=== PATIENT | male | born 1975 | race Caucasian/White ===

== ENCOUNTER 2022-02-02 23:51 | Emergency (ER) | payer OTHER, SELFPAY ==
[2022-02-03 00:04] VITALS: BP 123/82; PULSE 74; RESP 18; TEMP 36.6; O2SAT 99; BMI 32.9
--- OUTSIDE RECORDS SUMMARY | 2022-02-03 00:35 | XMS_ITS | Encounter Summary ---
:1975 Author Organization [facility] Address [address] [place] [address] Care Team Providers Name Role Phone Unavailable Primary Care Provider Unavailable Reason for Visit Reason Onset Date Comments Outpatient COVID-19 Testing 03/19/2020 Encounter Details Date Type Department Care Team Description 03/19/2020 External Outreach Department of Mateus Garrido Infect ion Upper Internal Medicine in J, D.O. Respiratory (Primary [place], [place] [address] Dx) [address] [place] [phone] Social History Tobacco Use Types Packs/Day Years Used Date Smoking Tobacco: Former Cigarettes Sex Assigned at Date Recorded Not on file documented as of this encounter Progress Notes Kathryn Briceño RFrancisco. - 03/19/2020 4:32 PM CST Encounter created for the drive-through COVID-19 testing. GATION DISTRICT MANAGER documented in this encounter Plan of Treatment Not on filedocumented as of this encounter Procedures Procedure Name Priority Date/Time Associated Diagnosis Comme nts SARS CORONAVIRUS-2 Routine 03/20/2020 9:51 AM Res ults for this RNA, V IRRIGATION DISTRICT MANAGER procedure are i n the results section. documented in this encounter Results SARS Coronavirus-2 RNA, V (03/20/2020 9:51 AM IRRIGATION DISTRICT MANAGER) [facility] Method Time Signature SARS-CoV-2 Nasopharynx 03/20/2020 MKTO Specimen 9:16 PM IRRIGATION DISTRICT MANAGER Source SARS CoV-2 Undetected Undetected 03/20/2020 MKTO RNA, TMA 9:16 PM IRRIGATION DISTRICT MANAGER Comment: SARS-CoV-2 RNA absent. This result does not rule out COVID-19 in the patient, as the sensitivity of the test depends o n the timing of the specimen collection and the quality of the specim en. Result should be correlated with patient's history and clinical presentat ion. ----ADDITIONAL INFORMATION---- This test is performed using the Aptima SARS-CoV-2 assay ([employer] which has received Emergency Use Authori zation (EUA) by the U.S. Food and Drug Administration. Fact sheets for this Emergency Use Autho rization (EUA) assay can be found at the following links: For Healthcare Providers: https://www.[employer] a.gov/media/355317/download For Patients: https://www.fda.gov/media/ 573909/download Specimen Anatomical Collection Method Collection Time Receive d Time (Source) Location / / Volume Laterality Varies 03/20/2020 9:51 AM 0 4:23 IRRIGATION DISTRICT MANAGER PM IRRIGATION DISTRICT MANAGER Mateus Garrido D.O. LAB MICROBIOLOGY - GENERAL O RDERABLES Performing Organization Address City/State/ZIP Code Phon e Number [facility]- [address] [place] [address] [place] [address] [address] documented in this encounter Visit Diagnoses Diagnosis Infection Upper Respiratory - Primary documented in this encounter Additional Health Concerns Infection Onset Date Last Indicated Resolved Time COVID19 Pending 03/19/2020 03/20/2020 03/20/2020 11:41 AM IRRIGATION DISTRICT MANAGER documented as of this encounter
--- OUTSIDE RECORDS SUMMARY | 2022-02-03 00:35 | XMS_ITS | Encounter Summary ---
:1975 Author Organization [facility] Address [address] [place] [address] Care Team Providers Name Role Phone Unavailable Primary Care Provider Unavailable Encounter Details Date Type Department Care Team Description 03/20/2020 Admin Visit Department of Family Medicine, [address] [address] [facility] [phone] Social History Tobacco Use Types Packs/Day Years Used Date Smoking Tobacco: Former Cigarettes Sex Assigned at Date Recorded Not on file documented as of this encounter Plan of Treatment Not on filedocumented as of this encounter Visit Diagnoses Not on filedocumented in this encounter Additional Health Concerns Infection Onset Date Last Indicated Resolved Time COVID19 Pending 03/19/2020 03/20/2020 03/20/2020 11:41 AM LIBRARY ASSISTANT documented as of this encounter
--- OUTSIDE RECORDS SUMMARY | 2022-02-03 00:35 | XMS_ITS | Encounter Summary ---
:1975 Author Organization [facility] Address [address] [place] [address] Care Team Providers Name Role Phone Unavailable Primary Care Provider Unavailable Encounter Details Date Type Department Care Team Description 02/01/2017 Hospital Encounter HX RST ED Scott Sweeney OBSERVATION M.D., Ph.D. [address] [place] [phone] Social History Tobacco Use Types Packs/Day Years Used Date Smoking Tobacco: Unknown Sex Assigned at Date Recorded Not on file documented as of this encounter Medications at Time of Discharge Medication Sig Dispensed Refills Start Date End Date propranoloL (INDERAL) 40 mg Take 40 mg by mouth 0 07/07/2015 tablet 2 (two) times a day. documented as of this encounter Plan of Treatment Not on filedocumented as of this encounter Visit Diagnoses Not on filedocumented in this encounter
--- OUTSIDE RECORDS SUMMARY | 2022-02-03 00:35 | XMS_ITS | Encounter Summary ---
:1975 Author Organization [facility] Address [address] [place] [address] Care Team Providers Name Role Phone Unavailable Primary Care Provider Unavailable Reason for Visit Reason Onset Date Comments Outpatient COVID-19 Testing 03/31/2020 Encounter Details Date Type Department Care Team Description 03/31/2020 External Outreach Department of Mateus Garrido Infect ion Upper Internal Medicine in J, D.O. Respiratory (Primary [place], [place] [address] Dx) [address] [place] [phone] Social History Tobacco Use Types Packs/Day Years Used Date Smoking Tobacco: Former Cigarettes Sex Assigned at Date Recorded Not on file documented as of this encounter Progress Notes Catherine Garcia R.N. - 03/31/2020 8:02 AM CST Encounter created for the drive-through COVID-19 testing. NICAL STAFF ENGINEER documented in this encounter Miscellaneous Notes Addendum Note - Catherine Garcia R.N. - 03/31/2020 8:02 AM TECHNICAL STAFF ENGINEER Addended by: CATHERINE GARCIA on: 04/01/2020 05:02 PM Modules accepted: Orders NICAL STAFF ENGINEER documented in this encounter Plan of Treatment Not on filedocumented as of this encounter Visit Diagnoses Diagnosis Infection Upper Respiratory - Primary documented in this encounter Additional Health Concerns Infection Onset Date Last Indicated Resolved Time COVID19 03/27/2020 03/27/2020 04/16/2020 4:47 AM TECHNICAL STAFF ENGINEER documented as of this encounter
--- OUTSIDE RECORDS SUMMARY | 2022-02-03 00:35 | XMS_ITS | Encounter Summary ---
:1975 Author Organization [facility] Address [address] [place] [address] Care Team Providers Name Role Phone Unavailable Primary Care Provider Unavailable Reason for Visit Reason Comments COV[place]OL Nurse Line Encounter Details Date Type Department Care Team Description 03/19/2020 Clinical Communication Division of Devora Calderon Nurse [facility] Internal R, R.N. [facility] [address] [facility] in [place], [place] [phone] [place] [address] [place], [place] (Work) [phone] Social History Tobacco Use Types Packs/Day Years Used Date Smoking Tobacco: Former Cigarettes Sex Assigned at Date Recorded Not on file documented as of this encounter Miscellaneous Notes Telephone Encounter - Devora Calderon, R.N. - 03/19/2020 4:22 PM CST COVID-19 Nurse Line Screening ASSESSMENT COVID 19 Screening Have you had close contact with a person who has a LABORATORY CONFIRMED case of COVID-19 in the past14 days?: Yes - Continue screening. Over the last 48 hours have you had any of the following symptoms that are not related to an existing condition?: No (End screening). Testing is not recommended at this time. Have you tested positive for COVID-19 in the last 45 days? : No (Continue Screening) Do any of the following quarantine criteria apply?: Close contact with COVID positive person within their infectious period or within 48 hours prior to symptoms onset, Close contact with COVID positiveperson within their infectious period or 48 hours prior to testing if they had not symptoms PLAN Endpoint recommendation: Screening negative, testing indicated per request for Work, sent to [facility] located at [address] The entrance is on the north side of the building. You must call [phone] for an appointment time.Testing hours are Daily 9 am to 7 pm.When you arrive at the testing site: Remain in your vehicle and check-in by phone using the same appointment line number. and Please avoid using public transportation per CDC recommendation. If you do not have personal transportation please self-quarantine until a personal transportation option is available. Care Points provided: STANDARD PRECAUTIONS FOR ALL PATIENTS: Wash hands often with soap and water for at least 20 seconds, especially after blowing your nose, coughing, sneezing, or having been in a public place. If soap and water aren't available, use a hand linen controller that contains at least 60% alcohol. Avoid close contact with anyone who may be exhibiting respiratory symptoms such as coughing and sneezing. Avoid touching your eyes, nose and mouth. Clean and disinfect frequently touched surfaces daily. Cover your mouth and nose with a cloth face cover when around others or in public. The cloth face cover is not a substitute for social distancing. Continue to keep about 6 feet between yourself andothers. Monitor for symptoms. Do not take your temperature within 30 minutes of exercise. If your test or screen is negative and new symptoms develop please contact your provider if it has been greaterthan 72 hours since you were tested. Educational Resource: https://www.cdc.gov/coronavirus/2019-ncov/ htaenoi-ahsnsqj-vvto/index.html RECOMMENDATIONS TESTING CRITERIA IS MET: Stay home except to get medical care. Quarantine for 14 days from your last known exposure to someone with a laboratory confirmed case of COVID-19 regardlessof your test results. Avoid public areas and public transportation. Separate yourself from other people and stay in a specific sick room if possible. Wear a cloth face covering, over your nose and mouth if you must be around other people even at home). Cover your nose and mouth when coughing or sneezing. Contact employer/occupational health department to notify them that they are being tested. Seekemergent care if any of the following occur: 1) Trouble breathing, 2) Bluish lips or face, 3) Persist ent pain or pressure in the chest, 4) Newly confused or unable to stay alert and awake. Notify appropriate care provider if any new or worsening symptoms. You may need re-testing if it has been greaterthan 72 hours after a negative COVID- 19 test result. Education Resources: https://www.cdc.gov/coronav irus/2019-ncov/fg-tff-dcx-sick/pziox-waep-oxiv.html SELF CARE FOR ALL PATIENTS: Take breaks from watching, reading, or listening to news stories. Make time to unwind. Try to do some other activities you enjoy. Connect with others. Be creative in keepingconnected with loved ones, especially those at high risk. Try healthy coping strategies such as meditation, relaxation, exercise, healthy eating habits, and avoid alcohol and drugs. Education: Patient/caregiver able to teach back Patient agreeable to plan of care: Yes The following references were used: [facility] novel coronavirus (COVID- 19) resources LE NEEDLE STITCHER documented in this encounter Plan of Treatment Not on filedocumented as of this encounter Visit Diagnoses Not on filedocumented in this encounter
--- OUTSIDE RECORDS SUMMARY | 2022-02-03 00:35 | XMS_ITS | Encounter Summary ---
:1975 Author Organization [facility] Address [address] [place] [address] Care Team Providers Name Role Phone Unavailable Primary Care Provider Unavailable Encounter Details Date Type Department Care Team Description 02/12/2017 Hospital Encounter HX NO MAPPING Social History Tobacco Use Types Packs/Day Years [...]
--- OUTSIDE RECORDS SUMMARY | 2022-02-03 00:35 | XMS_ITS | Encounter Summary ---
:1975 Author Organization [facility] Address [address] [place] [address] Care Team Providers Name Role Phone Unavailable Primary Care Provider Unavailable Encounter Details Date Type Department Care Team Description 03/27/2020 Admin Visit Department of Family Medicine, [address] [address] [facility] [phone] Social History Tobacco Use Types Packs/Day Years Used Date Smoking Tobacco: Former Cigarettes Sex Assigned at Date Recorded Not on file documented as of this encounter Plan of Treatment Not on filedocumented as of this encounter Visit Diagnoses Not on filedocumented in this encounter Additional Health Concerns Infection Onset Date Last Indicated Resolved Time COVID19 Pending 03/26/2020 03/27/2020 03/27/2020 1:30 PM FORK ASSEMBLER documented as of this encounter
--- OUTSIDE RECORDS SUMMARY | 2022-02-03 00:35 | XMS_ITS | Encounter Summary ---
:1975 Author Organization [facility] Address [address] [place] [address] Care Team Providers Name Role Phone Unavailable Primary Care Provider Unavailable Encounter Details Date Type Department Care Team Description 02/24/2017 Orders Only Department of Family Anna Rausch, Medicine in [facility] [address] [place], [place] [id number] [place] [address] ( Work) [address] [phone] Social History Tobacco Use Types Packs/Day Years Used Date Smoking Tobacco: Unknown Sex Assigned at Date Recorded Not on file documented as of this encounter Plan of Treatment Not on filedocumented as of this encounter Visit Diagnoses Not on filedocumented in this encounter
--- OUTSIDE RECORDS SUMMARY | 2022-02-03 00:35 | XMS_ITS | Encounter Summary ---
:1975 Author Organization [facility] Address [address] [place] [address] Care Team Providers Name Role Phone Unavailable Primary Care Provider Unavailable Reason for Visit Reason Onset Date Comments Outpatient COVID-19 Testing 03/23/2020 Encounter Details Date Type Department Care Team Description 03/23/2020 External Outreach Department of Mateus Garrido For Internal Medicine in J, D.O. Screening For Other [place], [place] [address] [facility] [address] [place], [place] (COVID-19) ([place] [address] Dx) [phone] Social History Tobacco Use Types Packs/Day Years Used Date Smoking Tobacco: Former Cigarettes Sex Assigned at Date Recorded Not on file documented as of this encounter Progress Notes Nito Gonzalez R.N. - 03/23/2020 9:22 AM CST Encounter created for the drive-through COVID-19 testing. NICIAN PREVENTATIVE MEDICINE documented in this encounter Miscellaneous Notes Addendum Note - Soun Michele R.N. - 03/23/2020 9:22 AM TECHNICIAN PREVENTATIVE MEDICINE Addended by: SONU MICHELE on: 03/23/2020 05:27 PM Modules accepted: Orders NICIAN PREVENTATIVE MEDICINE documented in this encounter Plan of Treatment Not on filedocumented as of this encounter Visit Diagnoses Diagnosis Encounter For Screening For Other Viral Diseases (COVID-19) - Primary documented in this encounter Additional Health Concerns Infection Onset Date Last Indicated Resolved Time COVID19 Pending 03/23/2020 03/23/2020 03/23/2020 5:27 PM TECHNICIAN PREVENTATIVE MEDICINE documented as of this encounter
--- OUTSIDE RECORDS SUMMARY | 2022-02-03 00:35 | XMS_ITS | Clinical Summary ---
:1975 Author Organization [employer] [facility] [employer] [facility] [place] [address] Care Team Providers Name Role Phone Lo Parker Primary Care Provider [phone] Allergies Active Allergy Reactions Severity Noted Date Comments Codeine Rash 10/10/2011 Other reaction( s): Other (see comments) CODEINE SULFATE Sumatriptan Other - Describe In 09/10/2013 Vessels in head Comment Field pop Latex Other - Describe In 12/24/2015 Rash and blisters Comment Field Morphine Itching 09/10/2013 Unlisted Allergen Anaphylaxis High 12/24/2015 White vine gar (This (Include Detail In includes tisha, Comments) man ect.) Oxycodone Other - Describe In 12/24/2015 Rash and blisters Comment Field Medications Medication Sig Dispensed Refills Start Date End Date Status cyclobenzaprine Take 1 tablet by 60 tablet. 1 05/03/2021 Active (FLEXERIL) 10 mg mouth once daily tabletIndications: if needed. Migraine syndrome fluocinonide 0.05% Apply topically 60 g 0 05/03/2021 Active topical (LIDEX) 0.05 % to affected creamIndications: Dry area(s) 2 times skin daily. nabumetone (RELAFEN) TAKE ONE TABLET 60 Tablet 0 07/09/2021 Active 500 mg BY MOUTH TWICE tabletIndications: Left DAILY WITH MEALS shoulder tendonitis tamsulosin (FLOMAX) 0.4 Take 1 Capsule 15 Capsule 2 08/13/2021 Active mg capsuleIndications: (0.4 mg) by History of kidney mouth once daily stones after a meal. propranoloL (INDERAL) Take 80 mg in 270 Tablet 3 08/21/2021 Active 40 mg the am and 40 mg tabletIndications: in the evening. Hypertension, unspecified type naproxen (NAPROSYN) 500 Take 1 Tablet 60 Tablet 1 12/19/2021 Active mg tabletIndications: (500 mg) by Right shoulder mouth in the tendonitis morning and 1 Tablet (500 mg) in the evening. Hospital, Clinic, or Other Ordered Dose Route Frequency Start Date End Date Status Facility Administered Medication betamethasone acet,sod 12 mg IArtic ONE TIME 01/08/20222021 Ended phos 12 mg injection (CELESTONE SOLUSPAN)Indications: Capsulitis of right shoulder Active Problems Problem Noted Date Kidney stone 02/02/2017 Chest pain 12/25/2015 Near syncope 12/25/2015 Resolved Problems Problem Noted Date Resolved Date History of kidney stones 08/13/2021 08/13/2021 Encounters Date Type Specialty Care Team Description 01/08/2022 Procedure Only Bobo Galo Procedure ( Right shoulder MD Ramon injection with u... 01/08/2022 Travel 01/01/2022 Medical Messaging Bobo Galo Follow u p from MRI MD Ramon 12/31/2021 Ancillary Procedure 12/31/2021 Travel 12/19/2021 Office Visit Bobo Galo Musculoskelet al Problem MD Ramon (Follow up bila teral shoulder pain, had right shoulder USGI o n 10/02/21) 12/19/2021 Travel from Last 3 Months Immunizations Name Administration Dates Next Due COVID-19 vaccine ([employer] 10/12/2020, 09/20/2020 30mcg/0.3mL) PF, MDV Hepatitis B (Adult) 12/14/2015, 08/02/2015, 06/21/2015 Influenza, IIV4 03/05/2021, 01/03/2020, 02/12/2019, 01/26/2018 Influenza, IIV4 (=>6mos) MDV 02/02/2017, 01/10/2016 Td, Preservative Free (age >= 7 10/25/2009 Years) Tdap 01/26/2018 Family History Medical History Relation Name Comments Hypertension Brother Heart Disease Father Believes had [place] in 40s, of CHF in his early 60s. Stomach cancer Father Heart Disease Maternal Grandfather Heart Disease Maternal Grandmother Stomach cancer Mother Heart Disease Paternal Grandfather Heart Disease Paternal Grandmother Relation Name Status Comments Brother Father Maternal Grandfather Maternal Grandmother Mother Paternal Grandfather Paternal Grandmother Social History Tobacco Use Types Packs/Day Years Used Date Former Smoker Cigarettes 1 24 Quit: 06/10/19 16 Smokeless Tobacco: Former User Q uit: 05/28/2015 Tobacco Cessation: Counseling Given: Yes Alcohol Use Standard Drinks/Week Comments No 0 (1 standard drink = 0.6 oz pure alcoho l) Sex Assigned at Date Recorded Not on file COVID-19 Exposure Response Date Recorded In the last 10 days, have you been in contact with No / Unsu re 01/08/2022 7:28 AM CDT someone who was confirmed or suspected to have Coronavirus/COVID-19? Obstetrics History Last Filed Vital Signs Vital Sign Reading Time Taken Comments Blood Pressure 136/84 01/08/2022 7:33 AM CDT Pulse 56 01/08/2022 7:33 AM CDT Temperature 36.4 ??C (97.5 ??F) 01/08/2022 7:33 AM CDT Respiratory Rate 18 12/25/2015 10:45 AM CDT Oxygen Saturation 99% 01/08/2022 7:33 AM CDT Inhaled Oxygen Concentration - - Weight 104.4 kg (230 lb 3.2 oz) 12/19/2021 9:02 AM CDT shoes on Height 175.3 cm (5' 9) 08/13/2021 10:33 AM CDT Body Mass Index 33.99 08/13/2021 10:33 AM CDT Plan of Treatment Health Maintenance Due Date Last Done Comments Hepatitis C screening for age 1103/11/1995 18-79 Depression screening for age 12+ 02/01/2019 02/01/2018, 05/2017, 09/30/2016 COVID-19 vaccine series (4 - 07/05/2021 05/10/2021, 021, Booster for Pfizer series) 09/20/2020 Influenza for age 9-49 12/26/2021 03/05/2021, 01/03/2020, 02/12/2019, Additional history exists BMI (ht and wt on same day) for 08/13/2022 08/13/2021, 10/2021, age 18+ 06/29/2019, Additional history exists Lipids for age 35-44 08/21/2026 08/21/2021, 02/05/2018, 12/25/2015 Tetanus booster 01/27/2028 01/26/2018, 10/25/2009 Tdap Completed 01/26/2018 Procedures Procedure Name Priority Date/Time Associated Diagnosis Comme nts BEDSIDE US STUDY Routine 01/08/2022 10:10 AM Capsulitis of rig ht Results for this ARCHIVE CDT shoulder procedure are i n the results section. MR SHOULDER RIGHT Routine 12/31/2021 10:36 AM Right shoulder R esults for this WO CDT tendonitis procedure are in Capsulitis of right the resu lts shoulder section. Scapular dyskinesis from Last 3 Months Results BEDSIDE US STUDY ARCHIVE (01/08/2022 10:10 AM CDT) Specimen (Source) Anatomical Location Collection Method / Collectio n Time Received Time / Laterality Volume Narrative ChambersAndressa Radha - 01/08/2022 10:10 AM CDT The patient was seen for ultrasound guided injection by Dr. Bobo Galo. Ultrasound was not used for diagnostic p urposes, but to guide the needle placement and document the position of the injection. ?? See patient's EPIC encounter for the det ail of the procedure; see BAILEE for saved images of the injection. Bobo Galo MD PROCEDURE ORD MR SHOULDER RIGHT WO (12/31/2021 10:36 AM CDT) Anatomical Region Laterality Modality SHOULDER R Magnetic Resonance Specimen (Source) Anatomical Collection Method Collection Time Re ceived Time Location / / Volume Laterality 12/31/2021 4:41 PM CDT Impressions 12/31/2021 4:41 PM CDT 1. Type 2 SLAP tear. 2. Mild glenohumeral capsulitis. 3. Minor tendinopathy supraspinatus and infraspinatus most pronounced at the conjoined insertion. 4. Lateral downsloping acromion and some one narrow acromiohumeral distance. 5. Mild/moderate degenerative arthrosis AC joint. Inferior osteophyte and hypertrophy slightly indent the supraspinatus and could contribute positional impingement. Dictated by Bobo Gardiner MD @ 12/31/2021 4 :41:20 PM (Electronically Signed) Narrative 12/31/2021 4:41 PM CDT For Patients: ??As a result of the Cures Act, medical imaging exams and procedure report s are released immediately into your [facility] medical record. ??You may view this report before your referring provider. ??If you have questions, please contact your health care provider. INDICATION: Shoulder pain with limited range of more on. Assess rotator cuff. COMPARISON: Plain film 02 October 2021. TECHNIQUE: Axial T1 and PD fat-sat, coronal PD, T2 and PD fat sat and sagittal PD and T2 right shoulder sequences without contrast. FINDINGS: Rotator cuff: Mild intersubstance interm ediate signal tendinosis mildly expands the distal rotator cuff centered at the conjoined insertion. No tear of significance. Teres minor is normal. Subscapularis has minimal tendinosis margins. - Acromioclavicular joint and coracoacromi al arch: Curved slightly lateral downsloping type 2 acromion. Acromial humeral distance is narrowed to 5 mm. No fluid in the bursa. Mild to moderately degenerated AC joint. Small inferior osteophyte sli ghtly indents supraspinatus musculotendinous junction. Subcoracoid interval is patient. - Biceps labral complex: Somewhat complex type 2 tearing in the superior labrum to the posterior superior margin. Intact biceps anchor and appropriately located biceps tendon. Intact posterior, inferior a nd anterior labrum. Small amount of flui d in the extra-articular biceps tendon sheath. - Glenohumeral joint: Anatomic alignment. Slightly heterogeneous signal. Shallow grade 2 thinning. Mildly edematous and thickened capsule through the axillary recess. - Bones and soft tissues: Deltoid bulk and signal is normal. No bone lesion or fracture. Visualized axilla is clear. Procedure Note Bobo Gardiner MD - 12/31/2021Fo rmatting of this note might be different from the original. For Patients: As a result of the Cures Act, medical imaging exams and procedure reports are released immediately into your electronic medical record. You may view this report before your referring provider. If you have questions, please contact yo health care provider. INDICATION: Shoulder pain with limited range of more on. Assess rotator cuff. COMPARISON: Plain film 02 October 2021. TECHNIQUE: Axial T1 and PD fat-sat, coronal PD, T2 and PD fat sat and sagittal PD and T2 right shoulder sequences without contrast. FINDINGS: Rotator cuff: Mild intersubstance interm ediate signal tendinosis mildly expands the distal rotator cuff centered at the conjoined insertion. No tear of significance. Teres minor is normal. Subscapularis has minimal tendinosis margins. - Acromioclavicular joint and coracoacromi al arch: Curved slightly lateral downsloping type 2 acromion. Acromial humeral distance is narrowed to 5 mm. No fluid in the bursa. Mild to moderately degenerated AC joint. Small inferior osteophyte slightly indents sup raspinatus musculotendinous junction. Subcoracoid interval is patient. - Biceps labral complex: Somewhat complex type 2 tearing in the superior labrum to the posterior superior margin. Intact biceps anchor and appropriately located biceps tendon. Intact posterior, inferior and anterior labrum. Small amount of fluid i n the extra-articular biceps tendon sheath. - Glenohumeral joint: Anatomic alignment. Slightly heterogeneous signal. Shallow grade 2 thinning. Mildly edematous and thickened capsule through the axillary recess. - Bones and soft tissues: Deltoid bulk and signal is normal. No bone lesion or fracture. Visualized axilla is clear. IMPRESSION: 1. Type 2 SLAP tear. 2. Mild glenohumeral capsulitis. 3. Minor tendinopathy supraspinatus and infraspinatus most pronounced at the conjoined insertion. 4. Lateral downsloping acromion and some one narrow acromiohumeral distance. 5. Mild/moderate degenerative arthrosis AC joint. Inferior osteophyte and hypertrophy slightly indent the supraspinatus and could contribute positional impingement. Dictated by Bobo Gardiner MD @ 12/31/2021 4 :41:20 PM (Electronically Signed) Bobo Galo MD MR from Last 3 Months Insurance Payer Benefit Plan / Subscriber ID Effective Dates Phone Addre ss Type Group [employer] [id number] 2020-Present [address] [place] [address] Advance Directives Latest Code Status on File Code Status Date Activated Date Inactivated Comments Full Code 12/24/2015 9:08 PM 12/25/2015 5:11 PM Full Code 12/24/2015 7:31 PM 12/24/2015 9:08 PM Care Teams Quality Assurance Associate Relationship Specialty Start Date End Date Lo Parker PA PCP - General Physician Picture Frame Maker 02/[address] [place] [address]
--- OUTSIDE RECORDS SUMMARY | 2022-02-03 00:35 | XMS_ITS | Encounter Summary ---
:1975 Author Organization [facility] Address [address] [place] [id number] Care Team Providers Name Role Phone Unavailable Primary Care Provider Unavailable Encounter Details Date Type Department Care Team Description 02/01/2017 Hospital Encounter HX [facility]ST EMERGENCY Provider, Historic al TRAUMA [facility] Social History Tobacco Use Types Packs/Day Years [...]
--- OUTSIDE RECORDS SUMMARY | 2022-02-03 00:35 | XMS_ITS | Encounter Summary ---
:1975 Author Organization [facility] Address [address] [place] [address] Care Team Providers Name Role Phone Unavailable Primary Care Provider Unavailable Reason for Visit Reason Comments Urolithiasis states has had pressure for the past couple days.. has history of kidney stones in the past. noted a little blood in his urine this morning Encounter Details Date Type Department Care Team Description 02/03/2020 Emergency [facility] Sally Rogers Sto ne Ureteral System-[place] M.D. (Primary Dx) [address] [place] [id number] Social History Tobacco Use Types Packs/Day Years Used Date Smoking Tobacco: Former Cigarettes Sex Assigned at Date Recorded Not on file documented as of this encounter Last Filed Vital Signs Vital Sign Reading Time Taken Comments Blood Pressure 151/103 02/03/2020 9:15 AM CDT Pulse 61 02/03/2020 9:15 AM CDT Temperature 36.3 ??C (97.3 ??F) 02/03/2020 9:15 AM CDT Respiratory Rate 18 02/03/2020 9:15 AM CDT Oxygen Saturation 97% 02/03/2020 9:15 AM CDT Inhaled Oxygen Concentration - - Weight 102 kg (224 lb 3.3 oz) 02/03/2020 9:33 AM CDT Height - - Body Mass Index - - documented in this encounter Discharge Instructions Discharge InstructionsSally Rogers M.D. - 02/03/2020 12:00 PM CDT If you feel like your symptoms are worsening or if you develop new concerning symptoms please returnto the emergency department to be re-evaluated. You can take 1000 mg of Tylenol and or 600 mg of ibuprofen every 6 hours for pain as needed. Flomax, and Vicodin worsen to [facility] in [place]. Your next dose of Flomax will be tomorrow. Please follow-up with your primary care provider regarding your ureteral stone. AttachmentsThe following attachments cannot be sent through Care Everywhere. Kidney Stones [id number] (Nepali)documented in this encounter Medications at Time of Discharge Medication Sig Dispensed Refills Start Date End Date propranoloL (INDERAL) 40 Take 40 mg by mouth 0 mg tablet 2 (two) times a day. HYDROcodone-acetaminophe Take 1 tablet by 12 tablet 0 02/0202/06/2020 n (Vicodin) 5-300 mg per mouth every 6 (six) tabletIndications: Acute hours as needed for Pain pain for up to 3 days Indication: acute pain. tamsulosin (FLOMAX) 0.4 Take 1 capsule (0.4 10 capsule 0 12/201902/13/2020 mg 24 hr capsule mg total) by mouth daily for 10 days. documented as of this encounter ED Notes Sally Rogers M.D. - 02/03/2020 9:16 AM CDT SUBJECTIVE CHIEF COMPLAINT/REASON FOR VISIT No chief complaint on file. HISTORY OF PRESENT ILLNESS This is a 44-year-old male with a history of ureteral stones who presents with left flank pain and penile pain. Patient states he has had pain in his penis for the past 3 days, along with some mild hematuria as well as pain with urination. He was suspecting he may have a urinary tract infection, but today developed flank pain that he has had previously with ureteral stones. He denies any fever, chills, nausea, vomiting or other symptoms. He states the largest stone he has had was 5 mm, but did pass it on his own. No testicular pain or swelling. REVIEW OF SYSTEMS Constitutional: Negative for fever. HENT: Negative for trouble swallowing. Eyes: Negative for visual disturbance. Respiratory: Negative for cough and shortness of breath. Cardiovascular: Negative for chest pain. Gastrointestinal: Positive for abdominal pain. Negative for nausea and vomiting. Genitourinary: Positive for dysuria, flank pain and penile pain. Musculoskeletal: Negative for neck pain. Skin: Negative for rash. Neurological: Negative for weakness. Psychiatric/Behavioral: Negative for confusion. OBJECTIVE Initial Vitals Temp Pulse Heart Rate Resp BP SpO2 -- -- -- -- -- -- Pain Score -- PHYSICAL EXAMINATION Constitutional: Nursing note and vitals reviewed. No distress. HENT: Head: Atraumatic. Nose: Nose normal. Mouth/Throat: Mucous membranes are moist. Eyes: Conjunctivae are normal. Neck: Normal range of motion. Cardiovascular: Normal rate and regular rhythm. Capillary refill: takes less than 3 seconds, Pulmonary/Chest: Effort normal and breath sounds normal. There is normal air entry. He has no wheezes. Abdominal: Soft. There is no abdominal tenderness. There is no rebound and no guarding. Musculoskeletal: No deformity. Neurological: He is alert and oriented to person, place, and time. No cranial nerve deficit. He exhibits normal muscle tone. Coordination normal. Skin: Skin is warm, dry and normal color. Psychiatric: He has a normal mood and affect. ASSESSMENT/PLAN Impression and Plan 44-year-old male presents with left flank pain and penile pain consistent with previous episodes of renal colic. Patient appears uncomfortable, but nontoxic. We have placed an IV started IV fluids and will give pain medication. Will plan for labs, noncontrast CT of the abdomen and pelvis, as well as urinalysis. CT scan shows a 6 mm stone at the level of the UVJ. No evidence of infection on UA. No significant elevation of his white blood cell count. Creatinine is normal. Patient's pain was controlled with Toradol, morphine, and he was started on Flomax. He is resting comfortably on re-evaluation. He declines ED observation for pain control and would like to be discharged home. Will send him home with a shortcourse of Vicodin, he has a family medicine follow-up appointment later this week. He will continue Tylenol as well as ibuprofen as well as Flomax at home and come back to the emergency department if pain is out of control or if new symptoms develop. Final Diagnoses: as of Feb 03 1200 [facility]reteral Sally Rogers M.D. 02/03/20 1201 documented in this encounter Plan of Treatment Not on filedocumented as of this encounter Procedures Procedure Name Priority Date/Time Associated Comments Diagnosis URINALYSIS WITH STAT 02/03/2020 11:26 Results for MICROSCOPIC AM CDT this procedure are in the results section. CT ABDOMEN PELVIS RAD - Semiurgent 02/03/2020 10:04 Re sults for WITHOUT IV CONTRAST (Fast; most ED AM CDT this p rocedure patients; some are in the inpatients) results section. CBC WITH STAT 02/03/2020 9:23 Results for DIFFERENTIAL, B AM CDT this procedu re are in the results section. COMPREHENSIVE STAT 02/03/2020 9:23 Results for METABOLIC PANEL, S/P AM CDT this pr ocedure are in the results section. documented in this encounter Results (ABNORMAL) Urinalysis with Microscopic: Urine, Midstream (02/03/2020 11:26 AM CDT) Analysis Performed At [facility] Time Signature Source Urine, Urine, 02/03/2020 OLE Midstream 11:48 AM CDT Clarity Clear Clear 02/03/2020 OLE 11:48 AM CDT Color Yellow 02/03/2020 OLE 11:48 AM CDT Comment: ----REFERENCE VALUE---- Colorless Yellow Karla Blood Large (A) Negative 02/03/2020 11:48 AM CDT OLE Nitrite Negative Negative 02/03/2020 11:48 AM CDT OLE Leukocyte Esterase Negative Negative 02/03/2020 11:48 AM C DT OLE Protein Negative mg/dL 02/03/2020 11:48 AM CDT OLE Comment: ----REFERENCE VALUE---- Negative Trace Glucose Negative Negative mg/dL 02/03/2020 11:48 AM CDT A MARIA R Ketone Negative Negative mg/dL 02/03/2020 11:48 AM CDT A MARIA R Bilirubin Negative Negative 02/03/2020 11:48 AM CDT OLE pH 7.0 5.0 - 8.0 02/03/2020 11:48 AM CDT OLE Specific [place] 1.014 1.001 - 1.035 02/03/2020 11:48 AM CDT OLE Urobilinogen 0.2 0.2 - 1.0 mg/dL 02/03/2020 11:48 AM C DT OLE White Blood Cells None Seen /hpf 02/03/2020 12:01 PM CD T OLE Comment: ----REFERENCE VALUE---- Males: 0-3 Females: 0-10 Unknown: 0-10 Red Blood Cells >100 (A) 0 - 2 /hpf 02/03/2020 12:01 PM CDT OLE Dysmorphic Red Blood Cells <=25 <=25 % 02/03/2020 12 :01 PM CDT OLE Specimen Anatomical Collection Method Collection Time Receive d Time (Source) Location / / Volume Laterality Urine (Urine, 02/03/2020 11:26 02/03/2020 Midstream) AM CDT 11:45 AM CDT Sally Rogers M.D. LAB URINE ORDERABLES Performing Organization Address City/State/ZIP Code Phon e Number [facility] [place] [address] [place] [facility] [address] [facility] [place] [place] [address] [facility] [address] Abdomen Pelvis without IV Contrast (02/03/2020 10:04 AM CDT) Anatomical Region Laterality Modality Abdomen, Pelvis, Abdominal RST LOS, Abdominal ARZ LOS, N/A Computed Tomography Abdominal FLA LOS Specimen (Source) Anatomical Collection Method Collection Time Re ceived Time Location / / Volume Laterality 02/03/2020 10:07 AM CDT Impressions 02/03/2020 10:12 AM CDT 1. ??6 mm stone at or just beyond the left ureterovesical junction with mild left hydronephrosis and hydroureter. 2. ??Additional nonobstructing bilateral intrarenal calculi. 3. ??Fat-containing right inguinal herni a. Narrative 02/03/2020 10:12 AM CDT EXAM: CT ABDOMEN PELVIS WITHOUT IV CONTRAST COMPARISON: January 31, 2017 FINDINGS: Limited lower thorax: Calcifie d right lower lobe granuloma, unchanged. Abdomen/pelvis: The liver, spleen, adren als, and pancreas are normal in appearance. Multiple nonobstructing righ t intrarenal calculi. Multiple nonobstructing left intrarenal calculi. Mild left hydronephrosis and hydroureter with a 6 mm stone at or just beyond the left ureterovesical junction. The large and small bowel loops are normal in appe arance with a normal appendix. Fat-containing right inguinal hernia. No ascites. Atherosclerotic vascular disease. Bones: Degenerative changes of the spine . No aggressive or destructive osseous lesions. Procedure Note Greg Drake M.D. - 02/03/2020Forma tting of this note might be different from the original. EXAM: CT ABDOMEN PELVIS WITHOUT IV CONTR AST COMPARISON: January 31, 2017 FINDINGS: Limited lower thorax: Calcifie d right lower lobe granuloma, unchanged. Abdomen/pelvis: The liver, spleen, adren als, and pancreas are normal in appearance. Multiple nonobstructing righ t intrarenal calculi. Multiple nonobstructing left intrarenal calculi. Mild left hydronephrosis and hydroureter with a 6 mm stone at or just beyond the left ureterovesical junction. The large and small bowel loops are normal in appe arance with a normal appendix. Fat-containing right inguinal hernia. No ascites. Atherosclerotic vascular disease. Bones: Degenerative changes of the spine . No aggressive or destructive osseous lesions. IMPRESSION: 1. 6 mm stone at or just beyond the left ureterovesical junction with mild left hydronephrosis and hydroureter. 2. Additional nonobstructing bilateral i ntrarenal calculi. 3. Fat-containing right inguinal hernia. Sally Rogers M.D. [facility] [place] PROCEDURES Comprehensive Metabolic Panel (02/03/2020 9:23 AM CDT) P athologist Signature Potassium, P 4.3 3.6 - 5.2 02/03/2020 OLE mmol/L 9:47 AM CDT Sodium, P 140 135 - 145 02/03/2020 OLE mmol/L 9:47 AM CDT Chloride, P 103 98 - 107 02/03/2020 OLE mmol/L 9:47 AM CDT Bicarbonate, P 27 22 - 29 02/03/2020 OLE mmol/L 9:47 AM CDT Anion Gap, P 10 7 - 15 02/03/2020 OLE 9:47 AM CDT BUN (Blood Urea 11 8 - 24 02/03/2020 OLE Nitrogen), P mg/dL 9:47 AM CDT Creatinine 1.16 0.74 - 02/03/2020 OLE 1.35 mg/dL 9:47 AM CDT eGFR-Black/Afric 89 >=60 02/03/2020 OLE an Australian mL/min/BSA 9:47 AM CDT Comment: ----ADDITIONAL INFORMATION---- Estimated GFR calculated using the 2009 CKD_EPI creatinine equation. eGFR Non-Black/ 77 >=60 mL/min/BSA 9:47 AM CDT OLE Comment: ----ADDITIONAL INFORMATION---- Estimated GFR calculated using the 2009 CKD_EPI creatinine equation. Calcium, Total, P 8.9 8.6 - 10.0 mg/dL 02/03/2020 9:47 AM CDT OLE Glucose, P 106 70 - 140 mg/dL 02/03/2020 9:47 AM CDT A MARIA R Protein, Total, P 6.9 6.3 - 7.9 g/dL 02/03/2020 9:47 A M CDT OLE Albumin, P 4.3 3.5 - 5.0 g/dL 02/03/2020 9:47 AM CDT A MARIA R Aspartate Aminotransferase 23 8 - 48 U/L 02/03/2020 9 :47 AM CDT OLE (AST), P Alkaline Phosphatase, P 87 40 - 129 U/L 02/03/2020 9: 47 AM CDT OLE Alanine Aminotransferase (ALT), 30 7 - 55 U/L 020 9:47 AM CDT OLE P Bilirubin, Total, P 0.4 <=1.2 mg/dL 02/03/2020 9:47 AM CDT OLE Specimen Anatomical Collection Method Collection Time Receive d Time (Source) Location / / Volume Laterality Blood (Blood, 02/03/2020 9:23 AM 02/03/20 20 9:26 Venous) CDT AM CDT Sally Rogers M.D. LAB BLOOD ADD-ON Performing Organization Address City/State/ZIP Code Phon e Number [facility] MELISSA [place] [phone] [facility] [place] [address] [facility] [place] [facility] [place] [address] [facility] [address] CBC with Differential, Blood (02/03/2020 9:23 AM CDT) P athologist Signature Hemoglobin 14.9 13.2 - 02/03/2020 OLE 16.6 g/dL 9:30 AM CDT Hematocrit 45.0 38.3 - 02/03/2020 OLE 48.6 % 9:30 AM CDT Erythrocytes 4.85 4.35 - 02/03/2020 OLE 5.65 9:30 AM CDT x10(12)/L MCV 92.8 78.2 - 02/03/2020 OLE 97.9 fL 9:30 AM CDT RBC Distrib Width 12.4 11.8 - 02/03/2020 OLE 14.5 % 9:30 AM CDT Platelet Count 314 135 - 317 02/03/2020 OLE x10(9)/L 9:30 AM CDT Leukocytes 6.4 3.4 - 9.6 02/03/2020 OLE x10(9)/L 9:30 AM CDT Neutrophils 3.91 1.56 - 02/03/2020 OLE 6.45 9:30 AM CDT x10(9)/L Lymphocytes 1.67 0.95 - 02/03/2020 OLE 3.07 9:30 AM CDT x10(9)/L Monocytes 0.62 0.26 - 02/03/2020 OLE 0.81 9:30 AM CDT x10(9)/L Eosinophils 0.12 0.03 - 02/03/2020 OLE 0.48 9:30 AM CDT x10(9)/L Basophils 0.05 0.01 - 02/03/2020 OLE 0.08 9:30 AM CDT x10(9)/L Specimen Anatomical Collection Method Collection Time Receive d Time (Source) Location / / Volume Laterality Blood (Blood, 02/03/2020 9:23 AM 02/03/20 20 9:26 Venous) CDT AM CDT Sally Rogers M.D. LAB BLOOD ADD-ON Performing Organization Address City/State/ZIP Code Phon e Number [facility] MELISSA [place] [phone] [facility] [address] [facility] [place] [facility] [place] [address] [place] [address] documented in this encounter Visit Diagnoses Diagnosis Stone Ureteral - Primary documented in this encounter Administered Medications Inactive Administered Medications - up to 3 most recent administrations Medication Order MAR Action Action Date Dose Rate Site ketorolac (TORADOL) 15 mg/mL injection - ADS Override Pull Starting on Thu02/03/20 at 0924, For 1 d ose, Created by cabinet override Adult IV push rate: Over 15 seconds. Peds IV push rate: Over 1 minute. 60 mg dose only for IM, not recommended for IV. ketorolac injection 15 mg (TORADOL) Given 02/03/2020 9:26 AM CDT 15 mg 15 mg, intravenous, Once, On Thu02/03/20 at 0917, For 1 dose, Adult IV push rate: Over 15 seconds. Peds IV push rate: Over 1 minute. 60 mg dose only for IM, not recommended for IV. ketorolac injection 15 mg (TORADOL) Given 02/03/2020 9:49 AM CDT 15 mg 15 mg, intravenous, Once, On Thu02/03/20 at 0950, For 1 dose, Adult IV push rate: Over 15 seconds. Peds IV push rate: Over 1 minute. 60 mg dose only for IM, not recommended for IV. morphine 2 mg/mL injection - ADS Overrid e Pull Starting on Thu02/03/20 at 1012, For 1 dose, Created b javed kerr override morphine injection 6 mg Given 02/03/2020 11:16 AM CDT 6 mg 6 mg, intravenous, Once, On Thu02/03/20 at 1011, For 1 dose morphine injection 6 mg Given 02/03/2020 11:18 AM CDT 6 mg 6 mg, intravenous, Once, On Thu02/03/20 at 1108, For 1 dose NaCl 0.9 % bolus 1,000 mL New Bag 02/03/2020 10:32 AM CDT 1,000 mL 1000 mL/hr 1,000 mL, intravenous, at 1,000 mL/hr, Administer over 1 Hours, Once, On Thu02/03/20 at 1029, For 1 dose tamsulosin 24 hr capsule 0.4 mg (FLOMAX) Given 02/03/2020 10:32 AM CDT 0.4 mg 0.4 mg, oral, Once, On Thu02/03/20 at 1029, For 1 dose, Swallow whole. Do NOT crush, chew or open capsule. documented in this encounter Active and Recently Administered Medications Times are shown in CDT. Scheduled Medication Order 02/01/2020 02/02/2020 02/03/2020 ketorolac injection 15 mg (TORADOL) (COMPLETED) 925 (Given - Provider: Tesha Sood R.N.) 15 mg, intravenous, Once, Thu02/03/20 at 0917, For 1 dose, Adult IV push rate: Over 15 seconds. Peds IV push rate: Over 1 minute. 60 mg dose only for IM, not recommended for IV. ketorolac injection 15 mg (TORADOL) (COMPLETED) 948 (Given - Provider: Tesha Sood R.N.)0953 (Due) 15 mg, intravenous, Once, Thu02/03/20 at 0950, For 1 dose, Adult IV push rate: Over 15 seconds. Peds IV push rate: Over 1 minute. 60 mg dose only for IM, not recommended for IV. morphine injection 6 mg (COMPLETED) 1116 (Given - Provider: Tesha Sood R.N.) 6 mg, intravenous, Once, Thu02/03/20 at 1011, For 1 dose morphine injection 6 mg (COMPLETED) 1118 (Given - Provider: Tesha Sood R.N.) 6 mg, intravenous, Once, Thu02/03/20 at 1108, For 1 dose NaCl 0.9 % bolus 1,000 mL (COMPLETED) 1032 (New Bag - Provider: Tesha Sood R.N.)1131 (Stopped - Provider: Tesha Sood R.N.) 1,000 mL, intravenous, at 1,000 mL/hr, A dminister over 1 Hours, Once, Thu02/03/20 at 1029, For 1 dose tamsulosin 24 hr capsule 0.4 mg (FLOMAX) (COMPLETED) 1032 (Given - Provider: Tesha Sood R.N.)1035 (Due) 0.4 mg, oral, Once, Thu02/03/20 at 1029, For 1 dose, Swallow whole. Do NOT crush, chew or open capsule. documented in this encounter
--- OUTSIDE RECORDS SUMMARY | 2022-02-03 00:35 | XMS_ITS | Encounter Summary ---
:1975 Author Organization [facility] Address [address] [place] [address] Care Team Providers Name Role Phone Unavailable Primary Care Provider Unavailable Reason for Visit Reason Comments COVID Nurse Line Encounter Details Date Type Department Care Team Description 03/19/2020 Clinical Communication Division of Tasha Guerra COV ID Nurse Line [facility] Internal [place], [facility] [phone] [facility] (Work) [place], [place] [address] [place] [address] Social History Tobacco Use Types Packs/Day Years Used Date Smoking Tobacco: Former Cigarettes Sex Assigned at Date Recorded Not on file documented as of this encounter Miscellaneous Notes Telephone Encounter - Tasha Guerra RZachNZach - 03/19/2020 3:18 PM CST COVID-19 Nurse Line Screening ASSESSMENT COVID 19 Screening Have you had close contact with a person who has a LABORATORY CONFIRMED case of COVID-19 in the past14 days?: Yes - Continue screening. Over the last 48 hours have you had any of the following symptoms that are not related to a exsitingcondition?: No symptoms- (Continue Screening) Have you tested positive for COVID-19 in the last 45 days? : No (Continue Screening) Do any of the following quarantine criteria apply?: Close contact with COVID positive person within their infectious period or within 48 hours prior to symptoms onset PLAN Endpoint recommendation: Screening negative, testing not indicated at this time and Provided instruction to quarantine for 14 days from the last contact exposure to a confirmed COVID-19 case and testing is recommended. The best time to test is 5-7 days after last contact with an infected individual inorder to have the best chance of detecting infection. If you are unsure of your last contact, or would like testing now, we can perform testing now. Even if your test is negative, you should continue to follow official public health quarantine recommendations. Contact your primary care team with any new symptoms. Care Points provided: STANDARD PRECAUTIONS FOR ALL PATIENTS: Wash hands often with soap and water for at least 20 seconds, especially after blowing your nose, coughing, sneezing, or having been in a public place. If soap and water aren't available, use a hand mechanical service technician that contains at least 60% alcohol. Avoid [...] since you were tested. Educational Resource: https://www.cdc.gov/coronavirus/2019-ncov/ temngwk-grvfhlu-aaak/index.html RECOMMENDATIONS TESTING CRITERIA IS MET: Stay home except to get medical care. Quarantine for 14 days from your last known exposure to someone with a laboratory confirmed case of COVID-19 regardlessof your test results. Contact employer/occupational health department to notify them that they are being tested. Education: Patient/caregiver able to teach back Patient agreeable to plan of care: Yes The following references were used: [facility] novel coronavirus (COVID- 19) resources [employer] documented in this encounter Plan of Treatment Not on filedocumented as of this encounter Visit Diagnoses Not on filedocumented in this encounter
--- OUTSIDE RECORDS SUMMARY | 2022-02-03 00:35 | XMS_ITS | Clinical Summary ---
:1975 Author Organization [facility] Address [address] [place] [id number] Care Team Providers Name Role Phone Unavailable Primary Care Provider Unavailable Source Comments Patient records contain information from all sites at [facility]. For routine questions regarding patient records, call [phone] during business hours, M-F 8:00 AM - 5:00 PM Central Time. Record requests for emergency care only can be directed to [phone] at any time.[facility] Allergies Active Allergy Reactions Severity Noted Date Comments Codeine Rash, Other (see comments) 10/10/2011 C ODEINE SULFATE Medications Medication Sig Dispensed Refills Start Date End Date Status propranoloL (INDERAL) Take 40 mg by 0 07/07/2015 Active 40 mg tablet mouth 2 (two) times a day. Active Problems No known active problems Immunizations Name Administration Dates Next Due influenza vaccine quad (FLUZONE/FLUARIX) (6 months and 02/12 older)(PF) Social History Tobacco Use Types Packs/Day Years Used Date Smoking Tobacco: Former Cigarettes Sex Assigned at Date Recorded Not on file Last Filed Vital Signs Vital Sign Reading [...] - - Body Mass Index - - Plan of Treatment Health Maintenance Due Date Last Done Comments HIV Screening 1975 Hepatitis C Screening 1975 Depression Screening 04/27/2021 (Annual PHQ-2) COVID-19 Vaccine (4 - 07/05/2021 05/10/2021, 10/12/2020, Booster for Pfizer series) 09/20/2020 Influenza Vaccine (#1) 2022 01/03/2020, 02/12/2019, 01/26/2018, Additional history exists Lipid (Cholesterol) 02/05/2023 02/05/2018 Screening DTaP,Tdap,and Td Vaccines 01/27/2028 01/26/2018, 10/25/2009 (2 - Td or Tdap) Hepatitis B Vaccines Completed 12/14/2015, 08/02/2015, 06/21/2015 Pneumococcal vaccine (0-64 Aged Out No lo nger eligible years) based on patient 's age to complete this topic Insurance Payer Benefit Plan Subscriber ID Effective Dates Phone Address Type / Group [facility] [facility] [id number] 2018-Isabela [phone] [facility] X [id number] PPO EMPLOYEE PLAN t 2 [place]OTH[place] [id number]
--- OUTSIDE RECORDS SUMMARY | 2022-02-03 00:35 | XMS_ITS | Encounter Summary ---
:1975 Author Organization [facility] Address [address] [place] [address] Care Team Providers Name Role Phone Unavailable Primary Care Provider Unavailable Encounter Details Date Type Department Care Team Description 08/22/2020 Orders Only [facility] Sa robert Bear M.D. [address] [place] [address] [phone] (Wo rk) Social History Tobacco Use Types Packs/Day Years Used Date Smoking Tobacco: Former Cigarettes Sex Assigned at Date Recorded Not on file documented as of this encounter Plan of Treatment Not on filedocumented as of this encounter Visit Diagnoses Not on filedocumented in this encounter
--- OUTSIDE RECORDS SUMMARY | 2022-02-03 00:35 | XMS_ITS | Encounter Summary ---
:1975 Author Organization [facility] Address [address] [place] [address] Care Team Providers Name Role Phone Unavailable Primary Care Provider Unavailable Reason for Visit Reason Onset Date Comments Outpatient COVID-19 Testing 03/26/2020 Encounter Details Date Type Department Care Team Description 03/26/2020 External Outreach Department of Mateus Garrido Infect ion Upper Internal Medicine in [facility] (Primary [place], [place] [address]) [address] [place] [phone] Social History Tobacco Use Types Packs/Day Years Used Date Smoking Tobacco: Former Cigarettes Sex Assigned at Date Recorded Not on file documented as of this encounter Progress Notes Sonu Coles R.N. - 03/26/2020 3:21 PM CST Encounter created for the drive-through COVID-19 testing. [employer] documented in this encounter Miscellaneous Notes Result Encounter Note - Doyle Garcia III, D.O., M.P.H. - 03/28/2020 11:32 AM CST Results Reviewed. Positive for COVID-19. No risk factors portending increased risk of severe COVID. Patient notified via portal. Dos: On campus appointments are scheduled within the next 7 days. Please review with the downstream service for urgency. If non-urgent, they should either be converted to [id number] visits or delayed until the patient recovers from COVID (which may take up to 30 days). If urgent the coordinatingcare team should contact us to discuss expedited return to care. MAA: please send low risk letter [employer] documented in this encounter Plan of Treatment Not on filedocumented as of this encounter Procedures Procedure Name Priority Date/Time Associated Comments Diagnosis SARS CORONAVIRUS 2 Routine 03/27/2020 9:10 AM Res ults for this PCR DETECT, V [employer] procedure are in the results section. documented in this encounter Results (ABNORMAL) SARS Coronavirus 2 RNA Detection (03/27/2020 9:10 AM DRYER [employer] WASH[employer]CHANIC) [facility] Method Time Signature SARS-CoV-2 Nasopharynx 03/28/2020 [facility] Specimen 11:21 AM [employer]CH[employer] Source SARS-CoV-2 Detected (C) Undetected 03/28/2020 [facility] RNA by PCR 11:21 AM [employer]CH[employer]IC Comment: SARS-CoV-2 RNA present. ----ADDITIONAL INFORMATION---- This PCR test was performed using the [employer] SARS-CoV-2 assay ([employer] on the tanya 6800 System under emergency use authorization (EUA) by the U.S. Food and Drug Administ ration. Fact sheets for this assay can be found at the following links: For Healthcare Providers: https://www.Workhint a.gov/media/577165/download For Patients: https://www.fda.gov/media/ 673564/download Specimen Anatomical Collection Method Collection Time Receive d Time (Source) Location / / Volume Laterality Varies 03/27/2020 9:10 AM 0 [employer] 12:02 AM [employer] MECH[employer]IC Mateus Garrido D.O. LAB MICROBIOLOGY - GENERAL O RDERABLES Performing Organization Address City/State/ZIP Code Phon e Number [facility] [address] [place], [place] [address] SU[facility] [place] [address] Laboratory Medicine and Pathology [address] [place] documented in this encounter Visit Diagnoses Diagnosis Infection Upper Respiratory - Primary documented in this encounter Additional Health Concerns Infection Onset Date Last Indicated Resolved Time COVID19 Pending 03/26/2020 03/27/2020 03/27/2020 1:30 PM [employer]CH[employer]IC documented as of this encounter
--- OUTSIDE RECORDS SUMMARY | 2022-02-03 00:35 | XMS_ITS | Encounter Summary ---
:[address] [facility] Address [address] [place] [address] Care Team Providers Name Role Phone Unavailable Primary Care Provider Unavailable Reason for Visit Reason Onset Date Comments Outpatient COVID-19 Testing 10/20/2019 Encounter Details Date Type Department Care Team Description 10/20/2019 External Outreach Department of Employer Based, [facility], Covid Serology Screening For Other [facility], in Testing Viral Dise [place], [place] (COVID-19) (Primary [address] FAIZA Dx) [place] [id number] Social History Tobacco Use Types Packs/Day Years Used Date Smoking Tobacco: Never Sex Assigned at Date Recorded Not on file documented as of this encounter Progress Notes Scott Ramsey, L.P.N. - 10/20/2019 9:30 AM CDT Encounter created for COVID-19 screening. documented in this encounter Plan of Treatment Not on filedocumented as of this encounter Procedures Procedure Name Priority Date/Time Associated Diagnosis Comme nts SARS-COV-2 IGG, Routine 10/20/2019 9:46 AM Encounter For Resul ts for this DEJA, EMP SCRN, CDT Screening For Other proc edure are in BLOOD SPOT Viral Diseases the results (COVID-19) section. documented in this encounter Results SARS-CoV-2 IgG, DEJA, Emp Scrn, Blood Spot (10/20/2019 9:46 AM CDT) P athologist Signature SARS-CoV-2 IgG Negative Negative 10/21/2019 [facility] Emp Scrn, Ab 9:41 PM CDT Comment: No IgG antibodies to SARS-CoV-2 detected . ?? Negative results may occur if the test i s done too soon following infection, or in immunosuppres sed patients. ?? This test does not rule out active or re cent COVID-19. ?? Testing was performed using the [employer] N Unbc-YUCY-DuR-2 DEJA (IgG). ??This test has received Emergency Use Authorization (EUA) by the U.S. Food and Drug Administration and is used per pattern developer's instructions, but it is modified from the pattern developer's instructions wit h a bridging study to include dried blood spot specimens. ? ? Performance characteristics were verifie d by [facility] in a manner consistent with CLIA require ments. Performance characteristics were verifie d by [facility] in a manner consistent with CLIA require ments. ?? Specimen Anatomical Collection Method Collection Time Receive d Time (Source) Location / / Volume Laterality Blood (Blood, 10/20/2019 9:46 AM 10/21/19 20 5:11 Venous) CDT PM CDT Covid Serology Testing Employer Based LAB MICROBIOLOGY - BLOOD ORDERABLES Performing Organization Address City/State/ZIP Code Phon e Number [facility] [address] [place], [place] [address] SUPPORT CENTER [facility] [place] [address] Laboratory Medicine and Pathology [address] [place] documented in this encounter Visit Diagnoses Diagnosis Encounter For Screening For Other Viral Diseases (COVID-19) - Primary documented in this encounter
--- OUTSIDE RECORDS SUMMARY | 2022-02-03 00:36 | XMS_ITS | Encounter Summary ---
:1975 Author Organization [facility] Address [address] [place] [address] Care Team Providers Name Role Phone Unavailable Primary Care Provider Unavailable Encounter Details Date Type Department Care Team Description 11/19/2013 Hospital Encounter HX RST EMERGENCY Provider, Historic al TRAUMA UNI Social History Tobacco Use Types Packs/Day Years Used Date Smoking Tobacco: Never Assessed Sex Assigned at Date Recorded Not on file documented as of this encounter Plan of Treatment Not on filedocumented as of this encounter Procedures Procedure Name Priority Date/Time Associated Comments Diagnosis CT ABDOMEN PELVIS WITH Routine 11/19/2013 3:24 Re sults for this IV CONTRAST PM CDT procedure are i n the results section. CBC WITH DIFFERENTIAL, B Routine 11/19/2013 2:10 Results for this PM CDT procedure are i n the results section. LACTATE, B/P Routine 11/19/2013 2:10 Results for this PM CDT procedure are i n the results section. ASPARTATE Routine 11/19/2013 2:09 Results for this AMINOTRANSFERASE (AST), PM CDT proc edure are in S/P the results section. ALKALINE PHOSPHATASE, Routine 11/19/2013 2:09 Res ults for this S/P PM CDT procedure are i n the results section. LIPASE, S/P Routine 11/19/2013 2:09 Results for this PM CDT procedure are i n the results section. BILIRUBIN DIRECT, S/P Routine 11/19/2013 2:09 Res ults for this PM CDT procedure are i n the results section. BILIRUBIN, TOT, S/P Routine 11/19/2013 2:09 Resul ts for this PM CDT procedure are i n the results section. BASIC METABOLIC PANEL, Routine 11/19/2013 2:09 Re sults for this S/P PM CDT procedure are i n the results section. GLUCOSE POCT, B Routine 11/19/2013 2:08 Results f or this PM CDT procedure are i n the results section. DIPSTICK, POCT, U Routine 11/19/2013 1:52 Results for this (DIPC1) PM CDT procedure are i n the results section. documented in this encounter Results CT Abdomen Pelvis with IV Contrast (11/19/2013 3:24 PM CDT) Anatomical Region Laterality Modality Abdomen, Pelvis N/A Computed Tomography Specimen (Source) Anatomical Collection Method Collection Time Re ceived Time Location / / Volume Laterality 11/19/2013 3:24 PM CDT Impressions 11/19/2013 3:52 PM CDT 2 mm mildly obstructing stone at the left UVJ. Tiny fat-containing umbilical hernia; no incarceration of bowel. FINDINGS: Tiny 2 mm stone in the left UV J, similar in appearance to 10/10/2011. ??Associated mild left ureterectasis and hydronephrosis. Mild left perinephric edema. Additional 2 mm nonobstructing stone in the mid left kidney. Tiny fat-containing umbilical hernia, st able compared to the prior exam. Underlying small and large bowel is normal in appearance, without evidence of obstruction. Right renal cyst. The liver, spleen, p ancreas, and adrenals are normal. ??Norm al appendix. No lymphadenopathy or free fluid in the abdomen or pelvis. Tiny nodule in the right lower lobe (series 2, image 2) is unchanged since 10/10/2011 and should be benign. Electronically signed by: ?? Dom Muro MD [phone] 19-Nov-2013 15:5 2 ?Nathaniel Nichols ??Wendy [phone] 19-Nov-2013 15:52 Narrative 11/19/2013 3:52 PM CDT 19-Nov-2013 15:24:00 ??Exam: CT ABDOMEN w & PELVIS w Indications: ? incarcerated hernia - obs truction ORIGINAL REPORT - 19-Nov-2013 15:52:00 EXAM: ??CT scan of the Abdomen and Pelvi s with IV contrast COMPARISON: ??CT abdomen pelvis without IV contrast and 10/10/2011. Procedure Note Jesse Nichols M.D. - 07/24/2017Forma tting of this note might be different from the original. 19-Nov-2013 15:24:00 Exam: CT ABDOMEN w & PELVIS w Indications: ? incarcerated hernia - obs truction ORIGINAL REPORT - 19-Nov-2013 15:52:00 EXAM: CT scan of the Abdomen and Pelvis with IV contrast COMPARISON: CT abdomen pelvis without IV contrast and 10/10/2011. IMPRESSION: 2 mm mildly obstructing ston e at the left UVJ. Tiny fat-containing umbilical hernia; no incarceration of bowel. FINDINGS: Tiny 2 mm stone in the left UV J, similar in appearance to 10/10/2011. Associated mild left ureterectasis and hydronephrosis. Mild left perinephric edema. Additional 2 mm nonobstructing stone in the mid left kidney. Tiny fat-containing umbilical hernia, st able compared to the prior exam. Underlying small and large bowel is normal in appearance, without evidence of obstruction. Right renal cyst. The liver, spleen, pancreas, and adrenals are normal. Normal appendix. No lymphadenopathy or free fluid in the abdomen or pelvis. Tiny nodule in the right lower lobe (series 2, image 2) is unchanged since 10/10/2011 and should be benign. Electronically signed by: Dom Muro MD [phone] 19-Nov-2013 15:5 2 Nathaniel Nichols M.D. [phone] 19-Nov-2013 15:52 Maira Archer M.D. IMG CT PROCEDURES (ABNORMAL) CBC with Differential (11/19/2013 2:10 PM CDT) [facility] Method Time Signature Erythrocytes 4.86 4.32 - [facility] 5.72 LABORATORIES - X10(12)/L [facility] MCV 88.9 81.2 - [facility] 95.1 [place] LABORATORIES [facility] Lymphocytes 1.45 0.90 - [facility] 2.90 LABORATORIES - X10(9)/L [facility] Monocytes 0.79 0.30 - [facility] 0.90 LABORATORIES - X10(9)/L [facility] Hemoglobin 15.1 13.5 - [facility] 17.5 G/DL [facility] Hematocrit 43.2 38.8 - [facility] 50.0 % [facility] RBC Distrib 12.9 11.8 - [facility] Width 15.6 % [facility] Platelet Count 289 150 - 450 [facility] X10(9)/L [facility] Leukocytes 11.1 (H) 3.5 - [facility] 10.5 LABORATORIES - X10(9)/L [facility] Neutrophils 8.69 (H) 1.70 - [facility] 7.00 LABORATORIES - X10(9)/L [facility] Eosinophils 0.12 0.05 - [facility] 0.50 LABORATORIES - X10(9)/L [facility] Basophils 0.06 0.00 - [facility] 0.30 LABORATORIES - X10(9)/L [facility] Specimen Anatomical Collection Method Collection Time Receive d Time (Source) Location / / Volume Laterality 11/19/2013 2:10 PM 4 2:10 CDT PM CDT Maira Archer M.D. LAB BLOOD ADD-ON Performing Organization Address City/[facility]/ZIP Code Phon e Number [facility] LABORATORIES - [address] [address] [facility] Lactate (11/19/2013 2:10 PM CDT) athologist Signature Lactate, P 0.9 0.6 - 2.3 [facility] MMOL/L LABORATORIES - [facility] Specimen Anatomical Collection Method Collection Time Receive d Time (Source) Location / / Volume Laterality 11/19/2013 2:10 PM 4 2:10 CDT PM CDT Maira Archer M.D. LAB BLOOD NON ADD-ON Performing Organization Address City/State/ZIP Code Phon e Number [facility] LABORATORIES - [address] [place] [address] [facility] AST (Aspartate Aminotransferase) (11/19/2013 2:09 PM CDT) Patholo gist Method Time Signature Aspartate 24 8 - 48 [facility] Aminotransferase U/L LABORATORIES - (AST), P [facility] Specimen Anatomical Collection Method Collection Time Receive d Time (Source) Location / / Volume Laterality 11/19/2013 2:09 PM 4 2:09 CDT PM CDT Maira Archer M.D. LAB BLOOD ADD-ON Performing Organization Address City/State/ZIP Code Phon e Number [facility] LABORATORIES - [address] [place], [place] [address] [facility] Alkaline Phosphatase (11/19/2013 2:09 PM CDT) athologist Signature Alkaline 94 45 - 115 [facility] Phosphatase, S U/L [facility] Specimen Anatomical Collection Method Collection Time Receive d Time (Source) Location / / Volume Laterality 11/19/2013 2:09 PM 4 2:09 CDT PM CDT Maira Archer M.D. LAB BLOOD ADD-ON Performing Organization Address City/[facility]/ZIP Code Phon e Number [facility] LABORATORIES - [address] [address] [facility] Lipase (11/19/2013 2:09 PM CDT) athologist Signature Lipase, S 60 10 - 73 U/L [facility] Specimen Anatomical Collection Method Collection Time Receive d Time (Source) Location / / Volume Laterality 11/19/2013 2:09 PM 4 2:09 CDT PM CDT Maira Archer M.D. LAB BLOOD ADD-ON Performing Organization Address City/[facility]/ZIP Code Phon e Number [facility] LABORATORIES - [address] [address] [facility] Bilirubin, Total (11/19/2013 2:09 PM CDT) athologist Signature Bilirubin, 0.5 0.1 - 1.0 [facility] Total, P MG/DL [facility] Specimen Anatomical Collection Method Collection Time Receive d Time (Source) Location / / Volume Laterality 11/19/2013 2:09 PM 4 2:09 CDT PM CDT Maira Archer M.D. LAB BLOOD ADD-ON Performing Organization Address City/[facility]/ZIP Code Phon e Number [facility] LABORATORIES - [address] [address] [facility] BMP (Basic Metabolic Panel) (11/19/2013 2:09 PM CDT) Analysis Performed At Patho logist Time Signature Sodium, P 140 135 - 145 [facility] MMOL/L [facility] Potassium, P 4.3 3.6 - 5.2 [facility] MMOL/L [facility] BUN (Blood Urea 10 8 - 24 [facility] Nitrogen), S MG/DL [facility] HX Bicarbonate, 24 22 - 29 [facility] P/S MMOL/L LABORATORIES - [facility] Chloride, S 105 98 - 107 [facility] MMOL/L LABORATORIES - [facility] Creatinine 1.0 0.8 - 1.3 [facility] MG/DL LABORATORIES - [facility] eGFR >60 >60 [facility] Non-Black/Afric ML/MIN/BSA LABORATORIES - an [place]adian [facility] eGFR-Black/Afri >60 >60 [facility] can [place] ML/MIN/BSA LABORATORIES - [facility] Glucose, S 115 70 - 140 [facility] MG/DL LABORATORIES - [facility] Anion Gap 11 7 - 15 [facility] LABORATORIES - [facility] Specimen Anatomical Collection Method Collection Time Receive d Time (Source) Location / / Volume Laterality 11/19/2013 2:09 PM 4 2:09 CDT PM CDT Maira Archer M.D. LAB BLOOD ADD-ON Performing Organization Address City/[facility]/ZIP Code Phon e Number [facility] LABORATORIES - [address] [address] [facility] Bilirubin, Direct (11/19/2013 2:09 PM CDT) athologist Signature Bilirubin, 0.1 0.0 - 0.3 [facility] Direct, P MG/DL LABORATORIES - [facility] Specimen Anatomical Collection Method Collection Time Receive d Time (Source) Location / / Volume Laterality 11/19/2013 2:09 PM 4 2:09 CDT PM CDT Maira Archer M.D. LAB BLOOD ADD-ON Performing Organization Address City/State/ZIP Code Phon e Number [facility] LABORATORIES - [address] [address] [facility] Glucose, POCT (11/19/2013 2:08 PM CDT) P athologist Signature Glucose, POCT, 109 70 - 140 [facility] B MG/DL LABORATORIES - [facility] Specimen Anatomical Collection Method Collection Time Receive d Time (Source) Location / / Volume Laterality 11/19/2013 2:08 PM 4 2:08 CDT PM CDT Historical Provider LAB POCT ORDERABLES-MANUAL Performing Organization Address City/State/ZIP Code Phon e Number [facility] LABORATORIES - [address] [address] [facility] (ABNORMAL) Dipstick, POCT, Urine (lab) (11/19/2013 1:52 PM CDT) [facility] gist Method Time Signature Glucose, Negative Negative [facility] POCT, U [facility] Bilirubin, Negative Negative [facility] POCT, [facility] Blood, POCT, 2+ (A) Negative [facility] pH, POCT, 5.5 5.0 - 8.0 [facility] Urine LABORATORIES [facility] Protein, Negative Negative [facility] POCT, [facility] Urobilinogen, 0.2 0.2 - 1.0 [facility] POCT, Urine LABORATORIES - [facility] Ketone, POCT, Negative Negative [facility] Specific >=1.030 1.001 - [facility] [place], 1.035 LABORATORIES - POCT, [facility] Nitrites, Negative Negative [facility] POCT, [facility] Leukocytes, Negative Negative [facility] POCT, [facility] Specimen Anatomical Collection Method Collection Time Receive d Time (Source) Location / / Volume Laterality 11/19/2013 1:52 PM 4 1:52 CDT PM CDT Historical Provider LAB POCT ORDERABLES - DEVICE Performing Organization Address City/State/ZIP Code Phon e Number [facility] LABORATORIES - [address] [place], [place] [address] [facility] documented in this encounter Visit Diagnoses Not on filedocumented in this encounter
--- OUTSIDE RECORDS SUMMARY | 2022-02-03 00:36 | XMS_ITS | Encounter Summary ---
:1975 Author Organization [facility] Address [address] [place] [address] Care Team Providers Name Role Phone Unavailable Primary Care Provider Unavailable Encounter Details Date Type Department Care Team Description 02/12/2010 - Hospital Encounter HX NO MAPPING Guille Maxwell M.D. 02/13/2010 [address] [place] [phone] (Wo rk) Social History Tobacco Use Types Packs/Day Years Used Date Smoking Tobacco: Never Assessed Sex Assigned at Date Recorded Not on file documented as of this encounter Plan of Treatment Not on filedocumented as of this encounter Visit Diagnoses Not on filedocumented in this encounter
--- OUTSIDE RECORDS SUMMARY | 2022-02-03 00:36 | XMS_ITS | Encounter Summary ---
:1975 Author Organization [facility] Address [address] [place] [address] Care Team Providers Name Role Phone Unavailable Primary Care Provider Unavailable Encounter Details Date Type Department Care Team Description 01/05/2013 Hospital Encounter HX NO MAPPING Waldo Ríos M.D. [address] [place] [address] [phone] (Wo rk) Social History Tobacco Use Types Packs/Day Years Used Date Smoking Tobacco: Never Assessed Sex Assigned at Date Recorded Not on file documented as of this encounter Plan of Treatment Not on filedocumented as of this encounter Visit Diagnoses Not on filedocumented in this encounter
--- OUTSIDE RECORDS SUMMARY | 2022-02-03 00:36 | XMS_ITS | Encounter Summary ---
:1975 Author Organization [facility] Address [address] [place] [address] Care Team Providers Name Role Phone Unavailable Primary Care Provider Unavailable Encounter Details Date Type Department Care Team Description 06/27/2009 Hospital Encounter HX NO MAPPING Michael Blue M.D. [address] [place] [phone] (Wo rk) Social History Tobacco Use Types Packs/Day Years Used Date Smoking Tobacco: Never Assessed Sex Assigned at Date Recorded Not on file documented as of this encounter Plan of Treatment Not on filedocumented as of this encounter Visit Diagnoses Not on filedocumented in this encounter
--- OUTSIDE RECORDS SUMMARY | 2022-02-03 00:36 | XMS_ITS | Encounter Summary ---
:1975 Author Organization [facility] Address [address] [place] [address] Care Team Providers Name Role Phone Unavailable Primary Care Provider Unavailable Encounter Details Date Type Department Care Team Description 09/11/2012 Hospital Encounter HX NO MAPPING North Daniels M.D. [address] [place] [address] [phone] (Wo rk) Social History Tobacco Use Types Packs/Day Years Used Date Smoking Tobacco: Never Assessed Sex Assigned at Date Recorded Not on file documented as of this encounter Plan of Treatment Not on filedocumented as of this encounter Visit Diagnoses Not on filedocumented in this encounter
--- OUTSIDE RECORDS SUMMARY | 2022-02-03 00:36 | XMS_ITS | Encounter Summary ---
:1975 Author Organization [facility] Address [address] [place] [address] Care Team Providers Name Role Phone Unavailable Primary Care Provider Unavailable Encounter Details Date Type Department Care Team Description 09/10/2013 Hospital Encounter HX NO MAPPING Nito Muñiz M.D. [address] [phone] (Wo rk) Social History Tobacco Use Types Packs/Day Years Used Date Smoking Tobacco: Never Assessed Sex Assigned at Date Recorded Not on file documented as of this encounter Plan of Treatment Not on filedocumented as of this encounter Visit Diagnoses Not on filedocumented in this encounter
--- OUTSIDE RECORDS SUMMARY | 2022-02-03 00:36 | XMS_ITS | Encounter Summary ---
:1975 Author Organization [facility] Address [address] [place] [id number] Care Team Providers Name Role Phone Unavailable Primary Care Provider Unavailable Encounter Details Date Type Department Care Team Description 06/12/2016 Hospital Encounter HX [facility] Glendy Reveles M.D. [address] [place], [place] [phone] (Wo rk) Social History Tobacco Use Types Packs/Day Years Used Date Smoking Tobacco: Unknown Sex Assigned at Date Recorded Not on file documented as of this encounter Medications at Time of Discharge Medication Sig Dispensed Refills Start Date End Date propranoloL (INDERAL) 40 mg Take 40 mg by mouth 0 07/07/2015 tablet 2 (two) times a day. documented as of this encounter Procedure Notes Mohsen Rushing L.PZachNZach - 06/12/2016 4:47 PM CST PPD Reading PPD Reading Entered On: 06/12/2016 16:48 UPPER SHAPER Performed On: 06/12/2016 16:47 UPPER SHAPER by MOHSEN RUSHING LPN PPD Reading MM of Induration : 0 mm PPD Interpretation : Negative PPD Placed On : Right inner forearm PPD Date/Time Administered : 06/12/2016 16:35 UPPER SHAPER MOHSEN RUSHING LPN - 06/12/2016 16:47 UPPER SHAPER Source: [facility] POWERCHART Document Id: [id number] UPPER SHAPER!6 R SHAPER documented in this encounter Plan of Treatment Not on filedocumented as of this encounter Procedures Procedure Name Priority Date/Time Associated Diagnosis Comme nts HX TB SKIN TEST-LAB Routine 06/12/2016 4:47 PM Re sults for this UPPER SHAPER procedure are i n the results section. documented in this encounter Results HX TB SKIN TEST-LAB (06/12/2016 4:47 PM UPPER SHAPER) P athologist Signature TB Skin Test 0 MM POWERCHART TB Skin Test Negative POWERCHART Specimen (Source) Anatomical Collection Method Collection Time Re ceived Time Location / / Volume Laterality 06/12/2016 4:47 PM UPPER SHAPER Historical Provider LAB HISTORICAL ORDERS Performing Organization Address City/State/ZIP Code Phon e Number POWERCHART documented in this encounter Visit Diagnoses Not on filedocumented in this encounter
--- OUTSIDE RECORDS SUMMARY | 2022-02-03 00:36 | XMS_ITS | Encounter Summary ---
:1975 Author Organization [facility] Address [address] [place] [address] Care Team Providers Name Role Phone Unavailable Primary Care Provider Unavailable Encounter Details Date Type Department Care Team Description 12/07/2001 Hospital Encounter HX NO MAPPING Social History Tobacco Use Types Packs/Day Years Used Date Smoking Tobacco: Never Assessed Sex Assigned at Date Recorded Not on file documented as of this encounter Plan of Treatment Not on filedocumented as of this encounter Visit Diagnoses Not on filedocumented in this encounter
--- OUTSIDE RECORDS SUMMARY | 2022-02-03 00:36 | XMS_ITS | Encounter Summary ---
:1975 Author Organization [facility] Address [address] [place] [id number] Care Team Providers Name Role Phone Unavailable Primary Care Provider Unavailable Encounter Details Date Type Department Care Team Description 09/10/2013 Hospital Encounter HX NO MAPPING Nito Muñiz M.D. [address] [phone] (Wo rk) Social History Tobacco Use Types Packs/Day Years Used Date Smoking Tobacco: Never Assessed Sex Assigned at Date Recorded Not on file documented as of this encounter Plan of Treatment Not on filedocumented as of this encounter Visit Diagnoses Not on filedocumented in this encounter
--- OUTSIDE RECORDS SUMMARY | 2022-02-03 00:36 | XMS_ITS | Encounter Summary ---
:1975 Author Organization [facility] Address [address] [place] [address] Care Team Providers Name Role Phone Unavailable Primary Care Provider Unavailable Encounter Details Date Type Department Care Team Description 02/02/2012 Hospital Encounter HX NO MAPPING Cristy Hanley, F.N.P. [address] [place], [place] [address] (Wo rk) Social History Tobacco Use Types Packs/Day Years Used Date Smoking Tobacco: Never Assessed Sex Assigned at Date Recorded Not on file documented as of this encounter Progress Notes Cristy Hanley - 02/02/2012 12:00 PM CDT [id number] SUBJECTIVE: Brian is a 36-year-old male who presents to urgent care today complaining of a migraine headache along with some nausea that started about 1:30 this morning. He does have a history of migraines and he is on preventative medicine for this including Atenolol and Cymbalta and he also takes Flexeril and Lortab at the beginning of a migraine. He states he has not taken any of this since 4 o'clock this morning. He says the pain starts in the back of his neck and going up to his forehead and is 9 out of 10 on the pain scale with pressure and sharp pain. He says this is not the worst headache he has ever had in his life and it is a normal migraine headache for him. He complains of photophobia but denies any sonoophobia. He denies any blurred vision. He says he has had emesis times one and still remains nauseated. He denies any numbness or tingling or any loss of bladder or bowel control. OBJECTIVE: Vital signs as noted in Epic, afebrile. The patient is an alert and oriented 36-year-old male who is hanging onto his head and requesting that the lights be turned off for his headache. HEENT: Head is normocephalic with no signs of trauma. No tenderness noted to maxillary or frontal sinuses. Pupils are equal, round and reactive to light and accommodation. Extraocular movements intact. Nasal mucosa is pink and moist. Nares are patent. Ears are normal position, no tenderness noted. Tympanic membranes are pearly johnson with positive light reflexes and all landmarks noted bilaterally. There is no drainage from the ear canals. Oral mucosa is pink and moist. Pharynx is pink and moist with no exudate of cobblestoning noted. Tonsils are 1+. CHEST: Chest rises and fall symmetrically with no signs of respiratory distress. LUNGS: Lung sounds are clear bilaterally. HEART: Heart rate is regular, S1 and S2. No murmurs or clicks. NEUROLOGIC: The patient is alert and oriented to person, place and time. Reflexes, sensation, strength, and coordination intact. Gait normal. ASSESSMENT: Migraine headache, chronic. PLAN: The patient was given Dilaudid 2 milligrams IM in urgent care along with 4 milligrams of Zofran. Billing Auditor - Mother is present with the patient. The patient was encouraged to follow with his primary care provider as well as his neurologist to figure out how to better manage his migraine headaches as they seem to be happening about 7 times per month. He states he is under more stress due to the divorce that he is going through. However he does have a follow up appointment with his primary care provider on Thursday to further discuss migraine headaches. He is encouraged to rest at home and take Tylenol and ibuprofen as needed for pain. If his headache worsens or does not get better he is instructed to come back in or be seen. The patient is in agreement with this plan. ROSEMARY Patel/bijal Source: [facility] [id number] Document Id: [id number] Electronically signed by Conversion, [facility] Systemcookie Consumer Lender [id number] at 09/27/2016 3:51 PM CDT documented in this encounter Plan of Treatment Not on filedocumented as of this encounter Visit Diagnoses Not on filedocumented in this encounter
--- OUTSIDE RECORDS SUMMARY | 2022-02-03 00:36 | XMS_ITS | Encounter Summary ---
:1975 Author Organization [facility] Address [address] [place] [id number] Care Team Providers Name Role Phone Unavailable Primary Care Provider Unavailable Encounter Details Date Type Department Care Team Description 07/07/2015 Hospital Encounter HX [facility] Carrie Dumont M.D. [address] [place] [address] [phone] (Wo rk) Social History Tobacco Use Types Packs/Day Years Used Date Smoking Tobacco: Never Assessed Sex Assigned at Date Recorded Not on file documented as of this encounter Last Filed Vital Signs Vital Sign Reading Time Taken Comments Blood Pressure 131/83 07/07/2015 5:00 PM CATERING OPERATIONS MANAGER Pulse 64 07/07/2015 2:54 PM CATERING OPERATIONS MANAGER Temperature - - Respiratory Rate 18 07/07/2015 5:00 PM CATERING OPERATIONS MANAGER Oxygen Saturation - - Inhaled Oxygen Concentration - - Weight 79.1 kg (174 lb 6.1 oz) 07/07/2015 2:54 PM CATERING OPERATIONS MANAGER Height - - Body Mass Index - - documented in this encounter Discharge Summaries Zina Kirby R.N. - 07/07/2015 5:54 PM CST ED Discharge Instructions [address] [address] Name: BRIAN MOMIN Date of : 1975 12:00 AM Visit Date: 07/07/2015 2:50 PM [facility] Number: [id number] Address: [address] [place] [phone] Primary Care Provider: PCP, ELSEWHERE IMPORTANT: [facility] in [place] would like to thank you for allowing us to assist you with your healthcare needs. The following includes patient education materials and information regarding your injury/illness. Diagnosis: Follow-Up Instructions: With: Address: When: *Follow Up with Urology Within 3 - 5 days Comments: left ureteral stone Your Upcoming Appointments: Date Time Location Provider No Appointments found Patient Education Materials: Kidney Stone (W/ Colic) The sharp cramping pain and nausea/vomiting that you have is due to a small stone which has formed in the kidney and is now passing down a narrow tube (ureter) on its way to your bladder. Once it reaches your bladder, the pain will stop. The stone may pass in your urine stream in one piece. [The size may be 1/16 to 1/4 (1-6mm)]. Or, the stone may also break up into buddy fragments which you may noteven notice. Once you have had a kidney stone, you are at risk for developing another one in the future. Home Care: ?? Drink plenty of fluids (at least 8 to 10 glasses of water a day). ?? Most stones will pass on their own, but may take from a few hours to a few days. Sometimes the stone is too large to pass by itself and special methods will have to be used to remove the stone. ?? Each time you urinate, do so in a jar. Pour the urine from the jar through the strainer and into the toilet. Continue doing this until 24 hours after your pain stops. By then, if there was a kidney stone, it should pass from your bladder. Some stones dissolve into sand-like particles and pass rightthrough the strainer. In that case, you wont ever see a stone. ?? Save any stone that you find in the strainer and bring it to your doctor for analysis. It may be possible to prevent certain types of stones from forming. Therefore, it is important to know what kind of stone you have. ?? Try to stay as active as possible since this will help the stone pass. Do not stay in bed unless your pain prevents you from getting up. You may notice a red, pink or brown color to your urine. Thisis normal while passing a kidney stone. Follow Up with your doctor or return to this facility if the pain lasts more than 48 hours. Get Prompt Medical Attention if any of the following occur: ?? Pain that is not controlled by the medicine given ?? Repeated vomiting or unable to keep down fluids ?? Weakness, dizziness or fainting ?? Fever of 100.4?F (38?C) or higher, or as directed by your healthcare provider ?? Passage of solid red or brown urine (can't see through it) or urine with lots of blood clots ?? Unable to pass urine for 8 hours and increasing bladder pressure ?? [phone] [facility], [address] [place] [address]. All rights reserved. This information is not intended as a substitute for professional medical care. Always follow your healthcare professional's instructions. Consider Using Patient Online Services Patient Online Services is a secure online and Mobile application that lets you: ?? View lab and test results ?? View portions of your medical record including clinical notes, immunizations and discharge summaries ?? Request an appointment or medication refill ?? Review your appointment schedule ?? Send secure messages to your care team Its easy to create an account if you dont have one. Go to [email or web address] and click on Create Your Account. Then, follow the directions to complete the online form. Youll be asked for your [facility] number which you can find at the top of this document. ED Tests and Procedures: Order Status US Abdomen Complete Completed Follow Up with Urology Completed Urinalysis with Culture if Indicated Completed CBC (includes Auto Differential) Completed Comprehensive Metabolic Panel Completed Automated Diff-5 Part Completed Discharge Prescriptions & Home Medications: Medication/Strength Dose Route Frequency Indications/Special Instructions/Comments/Notes HYDROcodone-acetaminophen (Grady 5 mg-325 mg oral tablet) 1 to 2 tablets Oral every 6 hours as needed for Pain No more than 4,000mg acetaminophen/24hrs ketorolac (Toradol 10 mg oral tablet) 10 mg Oral four times a day Take with food. ondansetron (ondansetron 8 mg oral tablet, disintegrating) 8 mg Oral every 8 hours tamsulosin (Flomax 0.4 mg oral capsule) 0.4 mg Oral once a day oxyCODONE-acetaminophen (oxyCODONE-acetaminophen 5 mg-325 mg oral tablet) 1 to 2 tablets Oral every 6 hours as needed for Pain No more than 4,000mg acetaminophen/24hrs ondansetron (ondansetron 4 mg oral tablet) 4 mg Oral every 8 hours propranolol (propranolol) 40 mg two times a day HYDROcodone-acetaminophen (HYDROcodone-acetaminophen 5 mg-325 mg oral tablet) 1 tab(s) Oral every 6 hours as needed for Other - per symptoms cyclobenzaprine (Flexeril) See Instructions Take by mouth. DULoxetine (Cymbalta) See Instructions Take by mouth. Comment: Attention: If you have any medications at home not on this list, DO NOT take them until you contact your provider for clarification. Give a copy of your medication list to your primary care provider. Update your medication list any time medications or doses are changed and carry your medication list at all times in case of emergency. IMPORTANT: We examined and treated you today on an emergency basis only. This was not a substitute for, or an effort to provide, complete medical care. In most cases, you must let your doctor check youagain. Tell your doctor about any new or lasting problems. We cannot recognize and treat all injuries or illnesses in one Emergency Department visit. If you had special tests, such as EKG's or X- rays, we will review them again within 24 hours. We will call you if there are any new suggestions. Please follow the instructions above carefully. If you are being transferred to another facility your followup plan of care will be determined by the receiving facility. If you are a patient that is being discharged from the Emergency Department after receiving narcotics or other medications that may impair your judgment you may be a risk to yourself or others if you operate a motor vehicle. We recommend that you arrange a ride home with a responsible libertarian. LILIANE Tillman TIMOTHY EDWARD , or responsible libertarian have received this information and my questions have been answered. I have discussed any challenges I see with this plan with the nurse or physician. Patient Signature or Responsible Republican/Relationship Date Time Provider Signature Date Time IMPORTANT: We examined and treated you today on an emergency basis only. This was not a substitute for, or an effort to provide, complete medical care. In most cases, you must let your doctor check youagain. Tell your doctor about any new or lasting problems. We cannot recognize and treat all injuries or illnesses in one Emergency Department visit. If you had special tests, such as EKG's or X- rays, we will review them again within 24 hours. We will call you if there are any new suggestions. Please follow the instructions above carefully. If you are being transferred to another facility your followup plan of care will be determined by the receiving facility. If you are a patient that is being discharged from the Emergency Department after receiving narcotics or other medications that may impair your judgment you may be a risk to yourself or others if you operate a motor vehicle. We recommend that you arrange a ride home with a responsible libertarian. I, BRIAN MOMIN , or responsible libertarian have received this information and my questions have been answered. I have discussed any challenges I see with this plan with the nurse or physician. Patient Signature or Responsible Republican/Relationship Date Time Provider Signature Date Time This document has images extracted. Please consider using [employer] for all your patient education needs. Source: [facility] POWERCHART Document Id: [id number] RING OPERATIONS MANAGER Zina Kirby R.N. - 07/07/2015 5:54 PM CST ED Depart Summary [facility] Emergency Department Clinical Discharge Summary PERSON INFORMATION Name BRIAN MOMIN Age 40 Years 1975 12:00 AM Sex Male Language Cymraes PCP PCP, ELSEWHERE [id number] Reason Flank pain; FLANK PAIN Specialty Enc Type Emergency Med Service Emergency Medicine Referred by Track Group BRIAN ED Discharge 07/07/2015 5:30 PM Tracking Id [id number] Checkout 07/07/2015 5:30 PM Checkin 07/07/2015 2:50 PM Acuity 3 -Urgent Dispo Type Disch/Trans Another Type of Health Care Arrival 07/07/2015 2:50 PM Reg Status Complete LOS 000 02:40 Address: [address] [place] [phone] Comment: PROVIDER INFORMATION Provider Role Provider Contact Time MAVERICK MCDUFFIE MD ED Provider 07/07/15 14:59 NORMAN SANCHEZ RN ED Nurse 07/07/15 15:00 PONCE PATTERSON ED Pmo Lead 07/07/15 15:34 DIAGNOSIS Comment: PATIENT EDUCATION INFORMATION Instructions: KIDNEY STONE w/ Colic Follow up: With: Address: When: *Follow Up with Urology Within 3 - 5 days Comments: left ureteral stone Source: [facility] POWERCHART Document Id: [id number] RING OPERATIONS MANAGER documented in this encounter Medications at Time of Discharge Medication Sig Dispensed Refills Start Date End Date propranoloL (INDERAL) 40 mg Take 40 mg by mouth 0 07/07/2015 tablet 2 (two) times a day. documented as of this encounter ED Notes Ponce Patterson - 07/07/2015 5:30 PM CST ED Treatments and Procedures Document Has Been Updated ED Treatments and Procedures Entered On: 07/07/2015 17:03 CATERING OPERATIONS MANAGER Performed On: 07/07/2015 17:30 CATERING OPERATIONS MANAGER by PONCE PATTERSON Peripheral IV Peripheral IV Assess/Intervention Grid Peripheral IV #1 IV Activity : Discontinue PONCE PATTERSON - 07/07/2015 17:19 CATERING OPERATIONS MANAGER Removal : Catheter intact, Hemostasis within expected timeframe PONCE PATTERSON - 07/07/2015 17:19 CATERING OPERATIONS MANAGER Number of Attempts : 1 PONCE PATTERSON - 07/07/2015 17:19 CATERING OPERATIONS MANAGER Date of Insertion : 07/07/2015 CATERING OPERATIONS MANAGER PONCE PATTERSON - 07/07/2015 17:19 CATERING OPERATIONS MANAGER IV Site : Hand PONCE PATTERSON - 07/07/2015 17:19 CATERING OPERATIONS MANAGER Laterality : Right PONCE PATTERSON N - 07/07/2015 17:19 CATERING OPERATIONS MANAGER Catheter Size : 22 PONCE PATTERSON N - 07/07/2015 17:19 CATERING OPERATIONS MANAGER PONCE PATTERSON N - 07/07/2015 17:03 CATERING OPERATIONS MANAGER Source: [employer] Document Id: [id number] CATERING OPERATIONS MANAGER!11 RING OPERATIONS MANAGER Norman Sanchez R.N. - 07/07/2015 5:30 PM CST ED Nurse Reassess ED Nurse Reassess Entered On: 07/07/2015 17:45 CATERING OPERATIONS MANAGER Performed On: 07/07/2015 17:30 CATERING OPERATIONS MANAGER by NORMAN SANCHEZ RN Pain Assessment Pain Symptoms : Yes NORMAN SANCHEZ RN - 07/07/2015 17:44 CATERING OPERATIONS MANAGER Resp Reassess Respiratory Patient Stated Symptoms : None NORMAN SANCHEZ RN - 07/07/2015 17:44 CATERING OPERATIONS MANAGER Emanuel Coma Eye Opening Response [place] : Spontaneously Best Verbal Response Emanuel : Oriented Best Motor Response Emanuel : Obeys simple commands [place] Coma Score : 15 NORMAN SANCHEZ RN - 07/07/2015 17:44 CATERING OPERATIONS MANAGER /OB Reassess /OB Note : pain 3/10. Extra fentanyl given pre discharge for the long ride home NORMAN SANCHEZ RN - 07/07/2015 17:44 CATERING OPERATIONS MANAGER Source: [employer] Document Id: [id number] CATERING OPERATIONS MANAGER!12 RING OPERATIONS MANAGER Norman Sanchez R.N. - 07/07/2015 5:30 PM CST ED Disposition Summary ED Disposition Summary Entered On: 07/07/2015 17:45 CATERING OPERATIONS MANAGER Performed On: 07/07/2015 17:30 CATERING OPERATIONS MANAGER by NORMAN SANCHEZ RN ED Disposition Summary Present in Room During Exam/Procedure : Friend Mode of Discharge : Ambulatory Printed Discharge Instructions Given to Patient : Yes Patient Status at Discharge from ED : Improved NORMAN SANCHEZ RN - 07/07/2015 17:45 CATERING OPERATIONS MANAGER Source: [employer] Document Id: [id number] CATERING OPERATIONS MANAGER!6 RING OPERATIONS MANAGER Norman Sanchez R.N. - 07/07/2015 5:30 PM CST ED Pain Assessment ED Pain Assessment Entered On: 07/07/2015 17:45 CATERING OPERATIONS MANAGER Performed On: 07/07/2015 17:30 CATERING OPERATIONS MANAGER by NORMAN SANCHEZ RN Pain Assessment Pain Symptoms : No NORMAN SANCHEZ RN - 07/07/2015 17:45 CATERING OPERATIONS MANAGER Source: [employer] Document Id: [id number] CATERING OPERATIONS MANAGER!3 RING OPERATIONS MANAGER Norman Sanchez R.N. - 07/07/2015 4:30 PM CST ED Nurse Reassess ED Nurse Reassess Entered On: 07/07/2015 17:44 CATERING OPERATIONS MANAGER Performed On: 07/07/2015 16:30 CATERING OPERATIONS MANAGER by NORMAN SANCHEZ RN Pain Assessment Pain Symptoms : Yes NORMAN SANCHEZ RN - 07/07/2015 17:42 CATERING OPERATIONS MANAGER /OB Reassess /OB Note : feeling better after several doses of fentanyl. Ultrasound in process NORMAN SANCHEZ RN - 07/07/2015 17:42 CATERING OPERATIONS MANAGER [facility] Document Id: [id number] CATERING OPERATIONS MANAGER!5 RING OPERATIONS MANAGER Norman Sanchez R.N. - 07/07/2015 3:23 PM CST ED Primary Assessment Document Has Been Updated ED Primary Assessment Entered On: 07/07/2015 15:29 CATERING OPERATIONS MANAGER Performed On: 07/07/2015 15:23 CATERING OPERATIONS MANAGER by NORMAN SANCHEZ RN Reason For Visit (As Of: 07/07/2015 15:29:01 CATERING OPERATIONS MANAGER) Diagnoses(Active) Flank pain Date: 07/07/2015 ; Diagnosis Type: Reason For Visit ; Confirmation: Complaint of ; Clinical Dx: Flank pain ; Classification: Medical ; Clinical Service: Emergency medicine ; Code: PNED ; Probability: 0 ; Diagnosis Code: [id number] Triage Chief Complaint Description : Tee. flank pain, (L) greater than (R), similar to past kidney stone pain. Denies injury. Mode of Arrival ED : Private vehicle Track : Medical Languages : Cymraes Treatments Prior to Arrival : None Is Patient Female and 13-50 no hysterectomy : No NORMAN SANCHEZ RN - 07/07/2015 15:23 CATERING OPERATIONS MANAGER Pain Assessment Pain Symptoms : Yes NORMAN SANCHEZ RN - 07/07/2015 15:23 CATERING OPERATIONS MANAGER Respiratory Airway : Patent Respirations : Unlabored Respiratory Pattern : Regular NORMAN SANCHEZ RN - 07/07/2015 15:23 CATERING OPERATIONS MANAGER Cardiovascular Heart Rhythm : Regular Skin Color : Normal for ethnicity Skin Description : Dry Skin Temperature : Warm NORMAN SANCHEZ RN - 07/07/2015 15:23 CATERING OPERATIONS MANAGER Neurological Last Well Time Known : Not applicable Level of Consciousness : Alert Orientation : Oriented x 3 Characteristics of Speech : Appropriate for age NORMAN SANCHEZ RN - 07/07/2015 15:23 CATERING OPERATIONS MANAGER ED Psychosocial Affect/Behavior : Calm Domestic Abuse Concerns : None Behavioral Health Screen/Safety Assmt : No NORMAN SANCHEZ RN - 07/07/2015 15:23 CATERING OPERATIONS MANAGER Gastrointestinal Nutrition ED : Adequate NORMAN SANCHEZ RN - 07/07/2015 15:23 CATERING OPERATIONS MANAGER /OB Assessment Note : left flank pain bilateraly that began 3 days ago and severe groin pain that began about 3 hours ago NORMAN SANCHEZ RN - 07/07/2015 15:23 CATERING OPERATIONS MANAGER Musculoskeletal Fall Prevention Education Provided : NORMAN ARZATE RN - 07/07/2015 15:23 CATERING OPERATIONS MANAGER Social Habits Smoking Status : Unknown if ever smoke Tobacco 2A : Unknown Tobacco Use/Currently Using : No Tobacco Use/Last 30 Days : No Tobacco Use/Last 12 months : No NORMAN SANCHEZ RN - 07/07/2015 15:23 CATERING OPERATIONS MANAGER Peripheral IV Peripheral IV Assess/Intervention Grid Peripheral IV #1 IV Activity : Start Number of Attempts : 1 Date of Insertion : 07/07/2015 CATERING OPERATIONS MANAGER IV Site : Hand Laterality : Right Catheter Size : 22 Site Condition : No complications NORMAN SANCHEZ RN - 07/07/2015 15:23 CATERING OPERATIONS MANAGER Source: [facility] POWERCHART Document Id: [id number] CATERING OPERATIONS MANAGER!50 RING OPERATIONS MANAGER Maverick Mcduffie M.D. - 07/07/2015 3:19 PM CST Flank pain Document Contains Addenda Patient: BRIAN MOMIN Age: 40 years Sex: Male : 1975 Author: MAVERICK MCDUFFIE MD Attachments: None I, Jo-Ann Robles, am scribing for and in the presence of, Maverick Mcduffie MD Basic Information Time seen: Date & time 07/07/2015 15:19:00. History source: Patient. Arrival mode: Private vehicle. History limitation: None. Additional information: Chief Complaint from Nursing Triage Note : Chief Complaint Description 07/07/2015 14:54 CATERING OPERATIONS MANAGER Chief Complaint Description Tee. flank pain, (L) greater than (R), similar to past kidney stone pain. Denies injury. . History of Present Illness The patient presents with abdominal pain and flank pain. The onset was this afternoon. The course/duration of symptoms is constant. The character of symptoms is crampy and sharp. The degree at onset was minimal. The Location of pain at onset was left, abdominal and flank. The degree at present is moderate. The Location of pain at present is left, abdominal and flank. Radiating pain: none. The exacerbating factor is none. The relieving factor is none. Therapy today: none. Risk factors consist of prior renal lithiasis. Associated symptoms: denies nausea, denies vomiting, denies diarrhea, denies feverand denies chills. patient reports an acute onset of L sided back and flank pain over the past few hours and indicates sxs are similar to that of prior renal lithiasis. Denies any urinary sxs and has not been otherwise unwell, no n/v/d. Review of Systems Constitutional symptoms: No fever or no chills. Skin symptoms: Negative except as documented in HPI. Eye symptoms: Negative except as documented in HPI. Respiratory symptoms: No shortness of breath. Cardiovascular symptoms: No chest pain. Gastrointestinal symptoms: Abdominal pain, nausea and vomiting, but no diarrhea or no constipation. Genitourinary symptoms: No dysuria, no hematuria or no testicular pain. Musculoskeletal symptoms: Negative except as documented in HPI. Neurologic symptoms: Negative except as documented in HPI. Psychiatric symptoms: Negative except as documented in HPI. Endocrine symptoms: Negative except as documented in HPI. Additional review of systems information: All other systems reviewed and otherwise negative. Health Status Allergies: Allergic Reactions (Selected) Severity Not Documented Imitrex- No reactions were documented. Latex- No reactions were documented. OxyCODONE- No reactions were documented. Nonallergic Reactions (Selected) Severity Not Documented Codeine- No reactions were documented. Pertussis vaccines- No reactions were documented.. Past Medical/ Family/ Social History Medical history: Negative, renal lithiasis. Surgical history: Negative. Family history: Not significant, no relevant family hx related to current condition. Social history: Alcohol use: Denies, Family/social situation: . Physical Examination Vital Signs: Vital Signs 07/07/2015 14:54 CATERING OPERATIONS MANAGER Temperature Core 36.9 DegC Peripheral Pulse Rate 64 /min Respiratory Rate 20 /min SpO2 97 % Systolic Blood Pressure 120 mmHg Diastolic Blood Pressure 87 mmHg Mean Arterial Pressure 98 mmHg BP Location Right upper , Measurements 07/07/2015 14:54 CATERING OPERATIONS MANAGER Dosing Weight 79.10 kg Actual Weight 79.1 kg Weight Source Standing scale , SpO2 07/07/2015 14:54 CATERING OPERATIONS MANAGER SpO2 97 % . General: Alert and no acute distress. Skin: Warm, dry and intact. Head: Normocephalic and atraumatic. Neck: Supple and trachea midline. Eye: Extraocular movements are intact and normal conjunctiva. Ears, nose, mouth and throat: Oral mucosa moist. Cardiovascular: Regular rate and rhythm. Respiratory: Lungs are clear to auscultation, respirations are non-labored, breath sounds are equal and Symmetrical chest wall expansion. Gastrointestinal: Soft and Tenderness: Mild, left flank. Back: Normal range of motion. Musculoskeletal: Normal ROM Neurological: Alert and oriented to person, place, time, and situation and No focal neurological deficit observed. Psychiatric: Cooperative and appropriate mood & affect. Medical Decision Making Differential Diagnosis:Abdominal pain, renal stone, ureteral stone. Documents reviewed:Emergency department nurses' notes (triage records from current visit), prior records. Results review:Lab results : Lab View 07/07/2015 16:37 CATERING OPERATIONS MANAGER Hgb 15.1 g/dL Hct 44.9 % WBC 7.9 x10(9)/L RBC 4.86 x10(12)/L MCV 92.4 fL RDW 12.4 % Platelet 271 x10(9)/L Neutro Absolute 4.91 10(9)/L Lymph Absolute 2.01 x10(9)/L [place] Absolute 0.73 x10(9)/L Eos Absolute 0.20 x10(9)/L Baso Absolute 0.05 x10(9)/L Sodium Lvl 141 mmol/L Potassium Lvl 4.6 mmol/L Chloride 105 mmol/L CO2 25 mmol/L AGAP 11 mmol/L Alkaline Phosphatase 82 U/L Glucose Lvl 111 mg/dL Creatinine 1.0 mg/dL EGFR (MDRD) >60 mL/min/SA EGFR (MDRD) >60 mL/min/SA BUN 10 mg/dL Calcium Lvl 9.2 mg/dL Protein Total 6.2 g/dL LOW Albumin Lvl 3.7 g/dL AST 20 U/L ALT 23 U/L Bili Total 0.2 mg/dL 07/07/2015 15:55 CATERING OPERATIONS MANAGER UA Color Yellow UA Clarity Clear UA Spec Grav 1.022 UA pH 6.0 UA Protein Negative UA Glucose Negative UA Ketones Trace UA Bili Negative UA Urobilinogen 1.0 mg/dL UA Blood Small UA Nitrite Negative UA Leuk Est Negative UR WBC None Seen /HPF UR RBC 3-10 /HPF UR Hyaline Cast 1-3 /LPF UR Crystals Present . Radiology results:Ultrasound, Renal cortex bilaterally grossly normal. Normal renal vascularity. No abnormal solid renal masses. Impression: Small stone in the inferior pole left kidney, nonobstructing. Abdomen otherwise unremarkable. . Notes:The patient has had kidney stones in the past and this felt identicle to that pain- we obtained US which revealed a small stone in the left inferior pole of the kidney. He likely has a stone distal to this, given the location of his pain. His labs are wnl, and he will use flomax, tordol and zofran as needed, with Urology follow up next week. If the pain worsens, he may require CT to evaluate size and location of stone. . Impression and Plan Diagnosis kidney stone Plan Condition: Stable. Disposition: Discharged: to home. Counseled: Patient, Regarding diagnosis, Regarding diagnostic results, Regarding treatment plan, Patient indicated understanding of instructions. Addendum Teaching-Supervisory Addendum-Brief I personally performed the services described in this documentation and as scribed in my presence; it is both accurate and complete. Electronically Signed By: MAVERICK MCDUFFIE MD On: 07/07/2015 05:55 PM Modified by and Electronically Signed by: JO-ANN ROBLES On: 07/07/2015 04:29 PM [facility] Document Id: [id number]} RING OPERATIONS MANAGER Mena Diaz R.N. - 07/07/2015 2:54 PM CST ED Triage Assessment Document Has Been Updated ED Triage Assessment Entered On: 07/07/2015 14:58 CATERING OPERATIONS MANAGER Performed On: 07/07/2015 14:54 CATERING OPERATIONS MANAGER by MENA DIAZ RN Reason For Visit (As Of: 07/07/2015 14:58:36 CATERING OPERATIONS MANAGER) Diagnoses(Active) Flank pain Date: 07/07/2015 ; Diagnosis Type: Reason For Visit ; Confirmation: Complaint of ; Clinical Dx: Flank pain ; Classification: Medical ; Clinical Service: Emergency medicine ; Code: PNED ; Probability: 0 ; Diagnosis Code: [id number] Triage Chief Complaint Description : Tee. flank pain, (L) greater than (R), similar to past kidney stone pain. Denies injury. Information Given By : Patient Present in Room During Exam/Procedure : Significant other Mode of Arrival ED : Private vehicle Track : Medical Languages : Cymraes Vital Signs Assessed : Yes GCS Assessed : Yes Treatments Prior to Arrival : None Is Patient Female and 13-50 no hysterectomy : No JOEMENA ROD 07/07/2015 14:54 CATERING OPERATIONS MANAGER Vital Signs Temperature Core : 36.9 DegC(Converted to: 98.4 DegF) Peripheral Pulse Rate : 64 /min Respiratory Rate : 20 /min Systolic Blood Pressure : 120 mmHg Diastolic Blood Pressure : 87 mmHg NIBP Mean : 98 mmHg BP Location : Right upper extremity SpO2 : 97 % Oxygen Therapy : Room air Actual Weight : 79.1 kg Actual Weight Conversion to Pounds : 174.02 lb Weight Source : Standing scale JOE MENA Power ROD 07/07/2015 14:54 CATERING OPERATIONS MANAGER [place] Coma Eye Opening Response Emanuel : Spontaneously Best Verbal Response Emanuel : Oriented Best Motor Response [place] : Obeys simple commands [place] Coma Score : 15 JOEMENA ROD 07/07/2015 14:54 CATERING OPERATIONS MANAGER Pain Assessment Pain Symptoms : Yes JOE MENA Power ROD 07/07/2015 14:54 CATERING OPERATIONS MANAGER Pain Scale Pain Scale Verbal 0-10 : Open JOE MENA Power ROD 07/07/2015 14:54 CATERING OPERATIONS MANAGER Pain Pain Assessment Grid Pain 1 Location : Flank Laterality : Left Intensity : 5 JOE MENA Power ROD 07/07/2015 14:54 CATERING OPERATIONS MANAGER Comfort Measures Comfort Measures Grid Positive Self-Talk : Yes JOEMENA ROD 07/07/2015 14:54 CATERING OPERATIONS MANAGER JONO JONO Level 1 : No JONO Level 2 : No JONO Level 3 : Many JOEMENA ROD 07/07/2015 14:54 CATERING OPERATIONS MANAGER JOE MENA Power ROD 07/07/2015 14:54 CATERING OPERATIONS MANAGER DCP GENERIC CODE Tracking Acuity : 3 -Urgent JOE MENA Power ROD 07/07/2015 14:58 CATERING OPERATIONS MANAGER Tracking Group : [facility] ED Allergy (As Of: 07/07/2015 14:58:18 CATERING OPERATIONS MANAGER) Allergies (Active) codeine Comments: Comment 1: CODEINE SULFATE ; Created By: Contributor_system, [facility]_HX_ALRG_SYS; Reaction Status: Active ; Category: Drug ; Substance: codeine ; Type: Unknown Imitrex Estimated Onset Date: Unspecified ; Created By: MENA DIAZ RN; Reaction Status: Active ; Category: Drug ; Substance: Imitrex ; Type: Allergy ; Updated By: MENA DIAZ RN; Reviewed Date: 07/07/2015 14:57 CATERING OPERATIONS MANAGER Latex Estimated Onset Date: Unspecified ; Created By: MENA DIAZ RN; Reaction Status: Active ; Category: Other ; Substance: Latex ; Type: Allergy ; Updated By: MENA DIAZ RN; Reviewed Date: 07/07/2015 14:57 CATERING OPERATIONS MANAGER oxyCODONE Estimated Onset Date: Unspecified ; Created By: MENA DIAZ RN; Reaction Status: Active ; Category: Drug ; Substance: oxyCODONE ; Type: Allergy ; Updated By: MENA DIAZ RN; Reviewed Date: 07/07/2015 14:57 CATERING OPERATIONS MANAGER pertussis vaccines Comments: Comment 1: PERTUSSIS VACCINES ; Created By: Contributor_system, [facility]_HX_ALRG_SYS; Reaction Status: Active ; Category: Drug ; Substance: pertussis vaccines ; Type: Unknown ID Screen Drug Resistant Organism : No MENA DIAZ RN - 07/07/2015 14:54 CATERING OPERATIONS MANAGER Source: [facility] [employer] Document Id: [id number] CATERING OPERATIONS MANAGER!4 RING OPERATIONS MANAGER documented in this encounter Miscellaneous Notes Telephone Encounter - Matt Mayorga - 07/09/2015 12:53 PM CDT Follow Up with Urology Entered by MATT LAUREANO on July 09, 2015 12:53:33 CDT Scheduled on 07/18 with Latefi. ROMERO for patient about appt date and time. Follow Up Request: Follow Up with Urology Date Requested: July 07, 2015 17:05:16 CATERING OPERATIONS MANAGER Ed Location: [facility] ED ED Attending: MAVERICK MCDUFFIE MD Order placed from order screen by provider Order Provider: --- Follow Up Time Frame: --- Reason for Request: --- Special Instructions: --- Consulting Physician: --- Consulting Department: --- Rule placed order based on provider documentaton Note: Order created from documentation in the Follow Up section Documented by: MAVERICK MCDUFFIE MD Follow Up Within: 3 - 5 days Follow Up On: -- Follow Up Address: -- Follow Up Comments: left ureteral stone Source: [facility] [employer] Document Id: [id number] Telephone Encounter - Matt Mayorga - 07/09/2015 7:57 AM CDT RE: Follow Up with Urology Document Contains Addenda Addendum by RILEY BILLY RN on July 12, 2015 08:31:23 CDT patient will call to schedule if they want to f/u- they have not returned phone calls. Addendum by RILEY BILLY RN on July 09, 2015 13:23:24 CDT nursing has a call out to patient to discuss where he wants to follow up for this as his history suggests he already has a urologist and care established elsewhere. will let scheduling know when or ifthis patient needs to be scheduled with our department. thanks Addendum by MATT LAUREANO on July 09, 2015 12:53:15 CDT From: MATT LAUREANO ([facility]) To: CHRISTOPHER Specialty Urology Nurse; Sent: 07/09/2015 12:53:15 CDT Subject: FW: Follow Up with Urology Per a previous power chart message for another patient, this patient is scheduled for 07/18 at [address] check [address] with Dr. rosenthal [facility] for patient about appointment date and time. Livestock Auctioneer did not see below addendum due to not replying to the message. Thanks Addendum by RILEY BILLY RN on July 09, 2015 10:50:40 CDT LMTCB From: MATT LAUREANO ([facility]) To: [place] [facility] Urology Nurse; Sent: 07/09/2015 07:57:16 CDT ! Subject: RE: Follow Up with Urology This patient is a new patient to urology. Nursing, please find a date and time for this patient to be seen or if this patient should be scheduled for Next Available. Thanks! Follow Up Request: Follow Up with Urology Date Requested: July 07, 2015 17:05:16 CATERING OPERATIONS MANAGER Ed Location: [facility] ED ED Attending: MAVERICK MCDUFFIE MD Order placed from order screen by provider Order Provider: --- Follow Up Time Frame: --- Reason for Request: --- Special Instructions: --- Consulting Physician: --- Consulting Department: --- Rule placed order based on provider documentaton Note: Order created from documentation in the Follow Up section Documented by: MAVERICK MCDUFFIE MD Follow Up Within: 3 - 5 days Follow Up On: -- Follow Up Address: -- Follow Up Comments: left ureteral stone Source: [facility] [employer] Document Id: [id number] Electronically signed by Conversion, [facility] Garment Cutter [id number] at 09/20/2016 4:53 PM CDT Miscellaneous - Conversion, Historical Provider Ser - 07/07/2015 5:30 PM CATERING OPERATIONS MANAGER Coding Summary-Paper Based CODING DATE: 07/22/2015 FINAL [facility] STATUS: Disch/Trans Another Type of Health Care PAYOR: Medicaid ADMIT DX: R10.9 Unspecified abdominal pain REASON FOR VISIT DX: R10.9 Unspecified abdominal pain FINAL DX: PRINCIPAL: N20.0 Calculus of kidney SECONDARY: Z88.5 Allergy status to narcotic agent status Z88.7 Allergy status to serum and vaccine status Z91.09 Other allergy status, other than to drugs and biological substances Z88.8 Allergy status to other drugs, medicaments and biological substances status PROCEDURES DOCTOR NAME DATE NOTE: The code number assigned matches the documented diagnosis and / or procedure in the patient's chart. However, the narrative phrase printed from the coding software may appear abbreviated, or result in slightly different terminology. Coded By: TACHO MCKAY Date Saved: 07/22/2015 02:05 pm [facility] Document Id: [id number] Miscellaneous - Norman Sanchez RZachNZach - 07/07/2015 5:30 PM CATERING OPERATIONS MANAGER Valuables/Belongings Valuables/Belongings Entered On: 07/07/2015 17:46 CATERING OPERATIONS MANAGER Performed On: 07/07/2015 17:30 CATERING OPERATIONS MANAGER by NORMAN SANCHEZ RN Valuables/Belongings Belongings Sent Home With : pt NORMAN SANCHEZ RN - 07/07/2015 17:46 CATERING OPERATIONS MANAGER Source: [facility] POWERCHART Document Id: [id number] CATERING OPERATIONS MANAGER!3 RING OPERATIONS MANAGER Miscellaneous - Norman Sanchez R.N. - 07/07/2015 2:50 PM CATERING OPERATIONS MANAGER Facility Charge Ticket 2.0 11.0 DX Facility Charge Ticket 2.0 11.0 DX Entered On: 07/07/2015 17:46 CATERING OPERATIONS MANAGER Performed On: 07/07/2015 14:50 CATERING OPERATIONS MANAGER by NORMAN SANCHEZ RN Facility Charge Ticket 2.0 11.0 DX ED Other Charges : Standard ED Encounter TVL Level Translated RTF : Flank pain TVL:4 TVL Level for Facility Charge Ticket : Level 4 Arrival Mode Calc : 1 Mode of Arrival ED : Private vehicle [place] Mode of Arrival Interpreted : Standard [facility]x Process Management : None Order Management RTF : Laboratory Urinalysis with Culture if Indicated,07/07/15 16:32,MAVERICK MCDUFFIE MD Completed CBC (includes Auto Differential),07/07/15 16:32,MAVERICK MCDUFFIE MD Completed Comprehensive Metabolic Panel,07/07/15 16:32,MAVERICK MCDUFFIE MD Completed Automated Diff-5 Part,07/07/15 16:41,MAVERICK MCDUFFIE MD Completed EKG / Respiratory / Ancillary Follow Up with Urology,07/07/15 17:05,SYSTEM, SYSTEM Completed CT / MRI / Ultrasound US Abdomen Complete,07/07/15 15:06,MAVERICK MCDUFFIE MD Completed [facility]x Order Management : CT/MRI/Ultrasound, EKG, RT, Ancillary Services, Lab tests 30 Minutes Critical Care : No Nursing Notes RTF : Triage Forms ED Triage Assessment,07/07/15 14:54,MENA DIAZ RN Nursing Notes ED Primary Assessment,07/07/15 15:23,NORMAN SANHCEZ NEGATIVE CLEANER Nurse Reassess,07/07/15 17:30,NORMAN SANCHEZ NEGATIVE CLEANER Nurse Reassess,07/07/15 16:30,NORMAN SANCHEZ NEGATIVE CLEANER Pain Assessment,07/07/15 17:30,NORMAN SANCHEZ RN [facility]x Nursing Assessment : Triage and 1-2 nursing assessments Treatments Prior to Arrival : None NORMAN SANCHEZ RN - 07/07/2015 17:46 CATERING OPERATIONS MANAGER Source: [facility] POWERCHART Document Id: [id number] CATERING OPERATIONS MANAGER!15 RING OPERATIONS MANAGER documented in this encounter Plan of Treatment Not on filedocumented as of this encounter Procedures Procedure Name Priority Date/Time Associated Comments Diagnosis AUTOMATED Routine 07/07/2015 4:37 PM Results f or this DIFFERENTIAL, B CATERING OPERATIONS MANAGER procedure ar e in the results section. CBC WITH DIFFERENTIAL, Routine 07/07/2015 4:37 PM Results for this B CATERING OPERATIONS MANAGER procedure are i n the results section. COMPREHENSIVE Routine 07/07/2015 4:37 PM Results for this METABOLIC PANEL, S/P CATERING OPERATIONS MANAGER procedu re are in the results section. URINALYSIS, MIDSTREAM, Routine 07/07/2015 3:55 PM Results for this WITH CULTURE IF CATERING OPERATIONS MANAGER procedure ar e in INDICATED the results section. US ABDOMEN COMPLETE Routine 07/07/2015 2:47 PM Re sults for this CATERING OPERATIONS MANAGER procedure are i n the results section. documented in this encounter Results Automated Differential (07/07/2015 4:37 PM CATERING OPERATIONS MANAGER) athologist Signature Absolute 4.91 1.70 - POWERCHART Neutrophils 7.00 109L Lymphocytes 2.01 0.90 - POWERCHART 2.90 X109L Monocytes 0.73 0.30 - POWERCHART 0.90 X109L Eosinophils 0.20 0.05 - POWERCHART 0.50 X109L Absolute 0.05 0.00 - POWERCHART Basophil 0.30 X109L Specimen Anatomical Collection Method Collection Time Receive d Time (Source) Location / / Volume Laterality Blood 07/07/2015 4:37 PM 6 4:37 CATERING OPERATIONS MANAGER PM CATERING OPERATIONS MANAGER Maverick Mcduffie M.D. LAB BLOOD ADD-ON Performing Organization Address City/State/ZIP Code Phon e Number POWERCHART CBC with Differential (07/07/2015 4:37 PM CATERING OPERATIONS MANAGER) P athologist Signature Leukocytes 7.9 3.5 - 10.5 POWERCHART X109L Erythrocytes 4.86 4.32 - 5.72 POWERCHART [id number] Hemoglobin 15.1 13.5 - 17.5 POWERCHART GDL Hematocrit 44.9 38.8 - 50.0 POWERCHART MCV 92.4 81.2 - 95.1 POWERCHART FL HX RDW 12.4 11.8 - 15.6 POWERCHART Platelet Count 271 150 - 450 POWERCHART X109L Specimen (Source) Anatomical Collection Method Collection Time Re ceived Time Location / / Volume Laterality Blood 07/07/2015 4:37 PM CATERING OPERATIONS MANAGER Maverick Mcduffie M.D. LAB BLOOD ADD-ON Performing Organization Address City/State/ZIP Code Phon e Number POWERCHART (ABNORMAL) CMP (Comprehensive Metabolic Panel) (07/07/2015 4:37 PM CATERING OPERATIONS MANAGER) Patholo gist Method Time Signature Sodium, S 141 135 - 145 POWERCHART MMOLL Potassium, S 4.6 3.5 - 5.1 POWERCHART MMOLL Chloride, S 105 98 - 107 POWERCHART MMOLL Total Protein, S 6.2 (L) 6.3 - 7.9 POWERCHART GDL Albumin, S 3.7 3.5 - 5.2 POWERCHART GDL CO2 Total 25 22 - 29 POWERCHART MMOLL Glucose 111 70 - 140 POWERCHART MGDL BUN (Blood Urea 10 6 - 24 POWERCHART Nitrogen), S MGDL Creatinine 1.0 0.8 - 1.3 POWERCHART MGDL Calcium, Total, S 9.2 8.6 - 10.3 POWERCHART MGDL Alkaline 82 40 - 130 POWERCHART Phosphatase, S UL Aspartate 20 8 - 48 UL POWERCHART Aminotransferase (AST), S Alanine 23 7 - 55 UL POWERCHART Amniotransferase, LD Bilirubin, Total, S 0.2 <=1.2 MGDL POWERCHAR T Anion Gap 11 7 - 15 POWERCHART MMOLL eGFR Black/ >60 >=60 POWERCHART [place] African MLMINSA HXeGFR (MDRD) >60 >=60 POWERCHART MLMINSA Comment: Results are in mL/min/1.73m squared CKD Stage I: ? GFR > 90 CKD Stage II: ?GFR 60 to 89 CKD Stage III: ? GFR 30 to 59 CKD Stage IV: ? GFR 15 to 29 CKD Stage V: ?GFR < 15 or Dialysi s Specimen (Source) Anatomical Collection Method Collection Time Re ceived Time Location / / Volume Laterality Blood 07/07/2015 4:37 PM CATERING OPERATIONS MANAGER Maverick Mcduffie M.D. LAB BLOOD ADD-ON Performing Organization Address City/State/ZIP Code Phon e Number POWERCHART (ABNORMAL) Urinalysis, Midstream, with culture if indicated (07/07/2015 3:55 PM CATERING OPERATIONS MANAGER) [facility] gist Method Time Signature HXUr Color Yellow Yellow POWERCHART Clarity Clear Clear POWERCHART Glucose Negative Negative POWERCHART HXBILIRUBIN Negative Negative POWERCHART Ketones, QL(U) Trace (A) Negative POWERCHART Specific 1.022 1.001 - POWERCHART [place], POCT, U 1.035 HXBLOOD Small (A) Negative POWERCHART pH, POCT, Urine 6.0 POWERCHART Protein, Ur, Dip Negative Negative POWERCHART Urobilinogen 1.0 0.2 MGDL POWERCHART HXNITRITE Negative Negative POWERCHART Leukocyte Negative Negative POWERCHART Esterase HXUR WBC. None Seen None Seen POWERCHART HPF HXUR RBC. 3-10 (A) None Seen POWERCHART HPF Casts, Hyaline 1-3 (A) None Seen POWERCHART LPF Crystals Present (A) None Seen POWERCHART Comment: 2+ calcium oxylate crystals see n. Specimen (Source) Anatomical Collection Method Collection Time Re ceived Time Location / / Volume Laterality Urine, First 07/07/2015 3:55 PM Voided CATERING OPERATIONS MANAGER Maverick Mcduffie M.D. LAB URINE ORDERABLES Performing Organization Address City/State/[facility] Phon e Number POWERCHART US Abdomen Complete (07/07/2015 2:47 PM CATERING OPERATIONS MANAGER) Anatomical Region Laterality Modality Abdomen N/A Ultrasound Specimen (Source) Anatomical Collection Method Collection Time Re ceived Time Location / / Volume Laterality 07/07/2015 2:47 PM CATERING OPERATIONS MANAGER Addenda Addendum by Provider, Wendy Shaw 07/07/2015 2:47 PM CATERING OPERATIONS MANAGER RAD^^^MA US Abdomen Complete 07/07/2015 14:47:30 Narrative 07/07/2015 4:29 PM CATERING OPERATIONS MANAGER EXAM: US Abdomen Complete INDICATION: left flank pain, suspected s tone; also w right flank pain FINDINGS: Abdominal ultrasound performed . Pancreas not well visualized secondary t o overlying bowel gas. Liver unremarkable 12.4 cm in AP dimensi on. No abnormal masses. Gallbladder contracted. Negative ultraso lexa Gordillo sign. Common bile duct at 3.6 mm. Common hepatic duct 2.1 mm. IVC, aorta, portal vein unremarkable. Right kidney grossly nii l. Left kidney shows suspect small nonobstructing inferior collecting system stones. Spleen unremarkable. Renal cortex bilaterally grossly normal. Normal renal vascularity. No abnormal solid renal masses. Impression: Small stone in the inferior pole left kidney, nonobstructing. Abdomen otherwise unrema rkable. Procedure Note Brian Miller M.D. / Rebecca Barnett M.D. - 08/29/2016 EXAM: US Abdomen Complete INDICATION: left flank pain, suspected s tone; also w right flank pain FINDINGS: Abdominal ultrasound performed . Pancreas not well visualized secondary t o overlying bowel gas. Liver unremarkable 12.4 cm in AP dimensi on. No abnormal masses. Gallbladder contracted. Negative ultraso lexa Gordillo sign. Common bile duct at 3.6 mm. Common hepatic duct 2.1 mm. IVC, aorta, portal vein unremarkable. Right kidney grossly nii l. Left kidney shows suspect small nonobstructing inferior collecting system stones. Spleen unremarkable. Renal cortex bilaterally grossly normal. Normal renal vascularity. No abnormal solid renal masses. Impression: Small stone in the inferior pole left kidney, nonobstructing. Abdomen otherwise unrema rkable. Perla Cervantes R.V.T., AjaySZach IMG US PROCEDURES documented in this encounter Visit Diagnoses Not on filedocumented in this encounter
--- OUTSIDE RECORDS SUMMARY | 2022-02-03 00:36 | XMS_ITS | Encounter Summary ---
:1975 Author Organization [facility] Address [address] [place] [address] Care Team Providers Name Role Phone Unavailable Primary Care Provider Unavailable Encounter Details Date Type Department Care Team Description 06/10/2016 Hospital Encounter HX [facility] Betty Martinez M.D. [address] [place] [address] (Wo rk) Social History Tobacco Use Types Packs/Day Years Used Date Smoking Tobacco: Unknown Sex Assigned at Date Recorded Not on file documented as of this encounter Medications at Time of Discharge Medication Sig Dispensed Refills Start Date End Date propranoloL (INDERAL) 40 mg Take 40 mg by mouth 0 07/07/2015 tablet 2 (two) times a day. documented as of this encounter Miscellaneous Notes Miscellaneous - Mohsen Rushing, LZachPZachN. - 06/10/2016 4:30 PM CST PPD Screen PPD Screen Entered On: 06/10/2016 16:32 LADIES UNDERWEAR OPERATOR Performed On: 06/10/2016 16:30 LADIES UNDERWEAR OPERATOR by MOHSEN RUSHING LPN PPD Screening Bloody Sputum : No Fatigue : No Fever : No Loss of Appetite : No Night Sweats : No Persistent Cough Greater Than 3 Weeks : No Weight Loss : No MOHSEN RUSHING LPN - 06/10/2016 16:30 LADIES UNDERWEAR OPERATOR TB Symptoms Grid Alcohol and Drug Use : No Employee of Institutional Living Environment : No Health Care Employee : No History of Exposure to TB : No History of Positive Chest X-Ray for TB : No History of Positive TB Skin Test : No Homeless : No Known Immunosuppression : No Recent Immigrant : No Resident of Institutional Living Environment : No MOHSEN RUSHING LPN - 06/10/2016 16:30 LADIES UNDERWEAR OPERATOR PPD Screening Grid Severe reaction to previous TST (necrosis, blistering, anaphylactic shock, or ulcerations) : No Smallpox vaccine within last 4 - 6 weeks : No Yellow Fever vaccine in last 4 - 6 weeks : No Varicella vaccine within last 4 - 6 weeks : No Measles vaccine within last 4 - 6 weeks : No Any live virus vaccine within last 4 - 6 weeks : No MOHSEN RUSHING LPN - 06/10/2016 16:30 LADIES UNDERWEAR OPERATOR Source: [facility] POWERCHART Document Id: [id number] LADIES UNDERWEAR OPERATOR!28 ES UNDERWEAR OPERATOR documented in this encounter Plan of Treatment Not on filedocumented as of this encounter Visit Diagnoses Not on filedocumented in this encounter
--- OUTSIDE RECORDS SUMMARY | 2022-02-03 00:36 | XMS_ITS | Encounter Summary ---
:1975 Author Organization [facility] Address [address] [place] [address] Care Team Providers Name Role Phone Unavailable Primary Care Provider Unavailable Encounter Details Date Type Department Care Team Description 01/26/2002 - 01/27/2002 Hospital Encounter HX NO MAPPING Social History Tobacco Use Types Packs/Day Years Used Date Smoking Tobacco: Never Assessed Sex Assigned at Date Recorded Not on file documented as of this encounter Plan of Treatment Not on filedocumented as of this encounter Procedures Procedure Name Priority Date/Time Associated Comments Diagnosis DX WRIST 3+ VIEWS Routine 01/26/2002 6:45 PM Resu lts for this CDT procedure are i n the results section. DX HAND UNILATERAL 2 Routine 01/26/2002 6:45 PM R esults for this VIEWS CDT procedure are i n the results section. RADIUS ULNA, 1-2VWS Routine 01/26/2002 6:45 PM Re sults for this CDT procedure are i n the results section. documented in this encounter Results Radius Ulna, 1-2vws (01/26/2002 6:45 PM CDT) Anatomical Region Laterality Modality Forearm N/A Radiographic Imaging Specimen (Source) Anatomical Collection Method Collection Time Re ceived Time Location / / Volume Laterality 01/26/2002 6:45 PM CDT Narrative 01/27/2002 4:06 PM CDT 26-Jan-2002 18:45:00 ??Exam: R Forearm 2vw AP/Lat Indications: [facility] ORIGINAL REPORT - 26-Jan-2002 18:59:00 Negative right forearm. Electronically signed by: ?? Juliana Villareal ??[phone] ([id number]) 2 18:59 I have reviewed the films/images and agr ee with the above interpretation. Electronically signed by: ?? French Silveira MD. ??[phone] 27-Jan-2002 16:0 6 Procedure Note Viki Silveira M.D. - 07/31/2017Fo rmatting of this note might be different from the original. 26-Jan-2002 18:45:00 Exam: R Forearm 2vw AP/Lat Indications: [facility] ORIGINAL REPORT - 26-Jan-2002 18:59:00 Negative right forearm. Electronically signed by: Juliana Villareal [phone] ([id number]) 26-Jan-2002 18:59 I have reviewed the films/images and agr ee with the above interpretation. Electronically signed by: French Silveira MD. [phone] 27-Jan-2002 16:06 Real Smith M.D. IMG DIAGNOSTIC IMAGING PROCE DURES DX Wrist 3+ Views (01/26/2002 6:45 PM CDT) Anatomical Region Laterality Modality Radiographic Imaging Specimen (Source) Anatomical Collection Method Collection Time Re ceived Time Location / / Volume Laterality 01/26/2002 6:45 PM CDT Narrative 01/27/2002 4:06 PM CDT 26-Jan-2002 18:45:00 ??Exam: R Wrist 5vw PA/Lat/Obl/Navicul Indications: [facility] ORIGINAL REPORT - 26-Jan-2002 18:58:00 Negative right hand and wrist. Electronically signed by: ?? uJliana Villareal ??[phone] [id number]) 2 18:58 I have reviewed the films/images and agr ee with the above interpretation. Electronically signed by: ?? French Silveira MD. ??[phone] 27-Jan-2002 16:0 6 Procedure Note Viki Silveira M.D. - 07/31/2017Fo rmatting of this note might be different from the original. 26-Jan-2002 18:45:00 Exam: R Wrist 5vw P A/Lat/Obl/Navicul Indications: [facility] ORIGINAL REPORT - 26-Jan-2002 18:58:00 Negative right hand and wrist. Electronically signed by: Juliana Villareal [phone] ([id number]) 26-Jan-2002 18:58 I have reviewed the films/images and agr ee with the above interpretation. Electronically signed by: French Silveira MD. [phone] 27-Jan-2002 16:06 Real Smith M.D. IMG DIAGNOSTIC IMAGING PROCE TIKI DX Hand 2 Views (01/26/2002 6:45 PM CDT) Anatomical Region Laterality Modality Upper Extremity, Hand N/A Radiographic Imagi ng Specimen (Source) Anatomical Collection Method Collection Time Re ceived Time Location / / Volume Laterality 01/26/2002 6:45 PM CDT Narrative 01/27/2002 4:06 PM CDT 26-Jan-2002 18:45:00 ??Exam: R Hand 2vw PA/Obl Indications: [facility] ORIGINAL REPORT - 26-Jan-2002 18:58:00 Negative right hand and wrist. Electronically signed by: ?? Juliana Villareal ??[phone] [id number]) 18:58 I have reviewed the films/images and agr ee with the above interpretation. Electronically signed by: ?? French Silveira MD. ??[phone] 27-Jan-2002 16:0 6 Procedure Note Viki Silveira M.D. - 07/31/2017Fo rmatting of this note might be different from the original. 26-Jan-2002 18:45:00 Exam: R Hand 2vw PA /Obl Indications: [facility] ORIGINAL REPORT - 26-Jan-2002 18:58:00 Negative right hand and wrist. Electronically signed by: Juliana Villareal [phone] [id number]) 26-Jan-2002 18:58 I have reviewed the films/images and agr ee with the above interpretation. Electronically signed by: French Silveira MD. [phone] 27-Jan-2002 16:06 Real [facility] DIAGNOSTIC IMAGING PROCE TIKI documented in this encounter Visit Diagnoses Not on filedocumented in this encounter
--- OUTSIDE RECORDS SUMMARY | 2022-02-03 00:36 | XMS_ITS | Encounter Summary ---
:1975 Author Organization [facility] Address [address] [place] [address] Care Team Providers Name Role Phone Unavailable Primary Care Provider Unavailable Encounter Details Date Type Department Care Team Description 10/01/2010 Hospital Encounter HX NO MAPPING Michael Blue M.D. [address] [place] [address] [phone] (Wo rk) Social History Tobacco Use Types Packs/Day Years Used Date Smoking Tobacco: Never Assessed Sex Assigned at Date Recorded Not on file documented as of this encounter Plan of Treatment Not on filedocumented as of this encounter Visit Diagnoses Not on filedocumented in this encounter
--- OUTSIDE RECORDS SUMMARY | 2022-02-03 00:36 | XMS_ITS | Encounter Summary ---
:1975 Author Organization [facility] Address [address] [place] [address] Care Team Providers Name Role Phone Unavailable Primary Care Provider Unavailable Encounter Details Date Type Department Care Team Description 04/21/2002 Hospital Encounter HX NO MAPPING Social History Tobacco Use Types Packs/Day Years Used Date Smoking Tobacco: Never Assessed Sex Assigned at Date Recorded Not on file documented as of this encounter Plan of Treatment Not on filedocumented as of this encounter Visit Diagnoses Not on filedocumented in this encounter
--- OUTSIDE RECORDS SUMMARY | 2022-02-03 00:36 | XMS_ITS | Encounter Summary ---
:1975 Author Organization [facility] Address [address] [place] [address] Care Team Providers Name Role Phone Unavailable Primary Care Provider Unavailable Encounter Details Date Type Department Care Team Description 10/01/2010 Hospital Encounter HX NO MAPPING Michael Blue M.D. [address] [place] [address] [phone] (Wo rk) Social History Tobacco Use Types Packs/Day Years Used Date Smoking Tobacco: Never Assessed Sex Assigned at Date Recorded Not on file documented as of this encounter Plan of Treatment Not on filedocumented as of this encounter Visit Diagnoses Not on filedocumented in this encounter
--- OUTSIDE RECORDS SUMMARY | 2022-02-03 00:36 | XMS_ITS | Encounter Summary ---
:1975 Author Organization [facility] Address [address] [place] [address] Care Team Providers Name Role Phone Unavailable Primary Care Provider Unavailable Encounter Details Date Type Department Care Team Description 01/26/2002 - Hospital Encounter HX RST Caesar Wagoner , 01/27/2002 [facility] [address] [place] [phone] (Wo rk) Social History Tobacco Use Types Packs/Day Years Used Date Smoking Tobacco: Never Assessed Sex Assigned at Date Recorded Not on file documented as of this encounter Plan of Treatment Not on filedocumented as of this encounter Visit Diagnoses Not on filedocumented in this encounter
--- OUTSIDE RECORDS SUMMARY | 2022-02-03 00:36 | XMS_ITS | Encounter Summary ---
:1975 Author Organization [facility] Address [address] [place] [id number] Care Team Providers Name Role Phone Unavailable Primary Care Provider Unavailable Encounter Details Date Type Department Care Team Description 10/10/2011 - Hospital Encounter HX RST EMERGENCY Provider, Historic al 10/11/2011 TRAUMA UNI Social History Tobacco Use Types Packs/Day Years Used Date Smoking Tobacco: Never Assessed Sex Assigned at Date Recorded Not on file documented as of this encounter Plan of Treatment Not on filedocumented as of this encounter Procedures Procedure Name Priority Date/Time Associated Comments Diagnosis CT HEAD WITHOUT IV Routine 01/05/2013 9:00 Result s for this CONTRAST PM CDT procedure are i n the results section. CT ABDOMEN PELVIS KIDNEY Routine 10/10/2011 11:38 Results for this STONE WITHOUT IV PM CDT procedure a re in CONTRAST the results section. MICROSCOPIC MANUAL Routine 10/10/2011 11:28 Resul ts for this PM CDT procedure are i n the results section. GRAM'S ST, U Routine 10/10/2011 11:28 Results for this PM CDT procedure are i n the results section. URINALYSIS WITH Routine 10/10/2011 11:28 Results for this MICROSCOPIC PM CDT procedure are i n the results section. ELECTROLYTE (CHEM 4) Routine 10/10/2011 11:16 Res ults for this PANEL, S/P PM CDT procedure are i n the results section. CBC WITH DIFFERENTIAL, B Routine 10/10/2011 11:16 Results for this PM CDT procedure are i n the results section. ASPARTATE Routine 10/10/2011 11:16 Results for this AMINOTRANSFERASE (AST), PM CDT proc edure are in S/P the results section. ALKALINE PHOSPHATASE, Routine 10/10/2011 11:16 Re sults for this S/P PM CDT procedure are i n the results section. LIPASE, S/P Routine 10/10/2011 11:16 Results for this PM CDT procedure are i n the results section. LACTATE, B/P Routine 10/10/2011 11:16 Results for this PM CDT procedure are i n the results section. BILIRUBIN DIRECT, S/P Routine 10/10/2011 11:16 Re sults for this PM CDT procedure are i n the results section. BILIRUBIN, TOT, S/P Routine 10/10/2011 11:16 Resu lts for this PM CDT procedure are i n the results section. AMYLASE, TOT, S Routine 10/10/2011 11:16 Results for this PM CDT procedure are i n the results section. GLUCOSE POCT, B Routine 10/10/2011 11:15 Results for this PM CDT procedure are i n the results section. DIPSTICK, POCT, U Routine 10/10/2011 11:13 Result s for this (DIPC1) PM CDT procedure are i n the results section. documented in this encounter Results CT Head without IV Contrast (01/05/2013 9:00 PM CDT) Anatomical Region Laterality Modality Head N/A Computed Tomography Specimen (Source) Anatomical Collection Method Collection Time Re ceived Time Location / / Volume Laterality 01/05/2013 9:00 PM CDT Impressions 01/05/2013 9:46 PM CDT ??No acute pathology is identified. No bleed or mass is identified. HALINA SAMANIEGO MD, Electronically signed by: ?? Default PerformingMD 05-Jan-2013 21:46 Narrative 01/05/2013 9:46 PM CDT 05-Jan-2013 21:00:00 ??Exam: CT Head wo Indications: ?? ORIGINAL REPORT - 05-Jan-2013 21:46:00 This [facility] ([place]) exam was historically loaded. CT HEAD W/O CONTRAST ?? 01/05/2013 9:00 P M HISTORY: Worst ever headache x 5 days no w TECHNIQUE: ??Axial images of the head wi thout ?IV contrast material. COMPARISON: None. FINDINGS: The ventricles are normal in s ize, shape and configuration. The brain parenchyma and subarachnoid sp aces are normal. There is no evidence of intracranial hemorrhage, mas s, acute infarct or anomaly. The visualized portions of the sinuses a nd mastoids appear normal. There is no evidence of trauma. Procedure Note ProviderColin M.D. - 07/24/2017F ormatting of this note might be different from the original. 05-Jan-2013 21:00:00 Exam: CT Head wo Indications: ORIGINAL REPORT - 05-Jan-2013 21:46:00 This [facility] ([place]) exam was historically loaded. CT HEAD W/O CONTRAST 01/05/2013 9:00 PM HISTORY: Worst ever headache x 5 days no w TECHNIQUE: Axial images of the head with out IV contrast material. COMPARISON: None. FINDINGS: The ventricles are normal in s ize, shape and configuration. The brain parenchyma and subarachnoid sp aces are normal. There is no evidence of intracranial hemorrhage, mas s, acute infarct or anomaly. The visualized portions of the sinuses a nd mastoids appear normal. There is no evidence of trauma. IMPRESSION: No acute pathology is identi fied. No bleed or mass is identified. HALINA SAMANIEGO MD, Electronically signed by: Sherrell Waggoner MD 05-Jan-2013 21:46 Waldo Ríos M.D. IMG CT PROCEDURES CT Abdomen Pelvis Kidney Stone without IV Contrast (10/10/2011 11:38 PM CDT) Anatomical Region Laterality Modality Abdomen, Pelvis Computed Tomography Specimen (Source) Anatomical Collection Method Collection Time Re ceived Time Location / / Volume Laterality 10/10/2011 11:38 PM CDT Impressions 10/11/2011 7:23 AM CDT ?? 1. Distal left ureteral stone just proxi mal to the UVJ is causing at least moderate left-sided obstruction. 2. Additional tiny left upper pole and r ight lower pole calyceal tip stones. FINDINGS: There is a tiny stone measurin g 2mm in the distal left ureter just proximal to the UVJ (series 3, image 159 and series 4, image 70). This is causing moderate left ureterectasis and pyelocaliec tasis. Additionally, there is moderate l eft perinephric and periureteral stranding. Tiny calyceal tip stone in the mid left kidney measuring 2mm (series 4, image 71). Additional tiny 2mm calyceal tip stone in the inferior right kidney (series 4, image 73). Radiopaque density measuring 3mm (series 4, image 65) may be a stone in the bladder versus prostatic calcification. ?? Urinary soto catheter. Tiny 2mm noncalc ified pulmonary nodule in the anterior right middle lobe (series 3, image 16) and 2.5mm noncalcified pulmonary nodule in the posterior right lower lobe (series 3, image 10) have doubtful clinical signif icance. Remainder negative. [id number] Electronically signed by: ?? Maikol Muniz MD [phone] [id number] 2 00:21 I have reviewed the films/images and agr ee with the above interpretation. Electronically signed by: ?? Shakira Beard MD [phone] 11-Oct-2011 07:2 3 Narrative 10/11/2011 7:23 AM CDT 10-Oct-2011 23:38:00 ??Exam: CT Renal Stone AP wo Indications: llq/flank pain - stone prot ocol ORIGINAL REPORT - 11-Oct-2011 00:21:00 EXAM: CT scan of the Abdomen and Pelvis without IV contrast. COMPARISON: None CONCLUSION/ Procedure Note Shakira Beard M.D. - 07/25/2017Formatti ng of this note might be different from the original. 10-Oct-2011 23:38:00 Exam: CT Renal Ston e AP wo Indications: llq/flank pain - stone prot ocol ORIGINAL REPORT - 11-Oct-2011 00:21:00 EXAM: CT scan of the Abdomen and Pelvis without IV contrast. COMPARISON: None CONCLUSION/IMPRESSION: 1. Distal left ureteral stone just proxi mal to the UVJ is causing at least moderate left-sided obstruction. 2. Additional tiny left upper pole and r ight lower pole calyceal tip stones. FINDINGS: There is a tiny stone measurin g 2mm in the distal left ureter just proximal to the UVJ (series 3, image 159 and series 4, image 70). This is causing moderate left ureterectasis and pyelocaliectasis. Additionally, there is moderate left per inephric and periureteral stranding. Tiny calyceal tip stone in the mid left kidney measuring 2mm (series 4, image 71). Additional tiny 2mm calyceal tip stone in the inferior right kidney (series 4, image 73). Radiopaque density measuring 3mm (series 4, image 65) may be a stone in the bladder versus prostatic calcification. Urinary soto catheter. Tiny 2mm noncalc ified pulmonary nodule in the anterior right middle lobe (series 3, image 16) and 2.5mm noncalcified pulmonary nodule in the posterior right lower lobe (series 3, image 10) have doubtful clinical significance. Rem ainder negative. [id number] Electronically signed by: Maikol Muniz MD [phone] [id number] 2 00:21 I have reviewed the films/images and agr ee with the above interpretation. Electronically signed by: Shakira Beard MD [phone] 11-Oct-2011 07:2 3 Olegario Montoya M[address]D. IM[address] PROCEDURES (ABNORMAL) Urinalysis with Microscopic (10/10/2011 11:28 PM CDT) [facility] Method Time Signature Osmolality, 24 905 150 - 1150 [facility] HR, U MOSM/KG [facility] pH, 24 HR, U 5.3 4.5 - 8.0 [facility] Glucose 30 (H) <25; MG/DL [facility] Protein, U 29 MG/DL [facility] Source Catheter [facility] Appearance Normal Normal [facility] Protein/Osmola 0.32 (H) <0.12 RATIO [facility] lity [facility] Predicted 24 318 MG/24 H [facility] Hr Protein [facility]IES [facility] Predicted 101-1003 MG/24 H [facility] Range [facility] Hemoglobin, QL Large (A) Negative [facility] Specimen Anatomical Collection Method Collection Time Receive d Time (Source) Location / / Volume Laterality 10/10/2011 11:28 10/10/2011 PM CDT 11:28 PM CDT Historical Provider LAB URINE ORDERABLES Performing Organization Address City/State/ZIP Code Phon e Number [facility] - [address] [place], [place] [address] [facility] Gram Stain, Urine (10/10/2011 11:28 PM CDT) [facility] Method Time Signature Gram's Stain, Negative [facility] Screen, U [facility] Specimen Anatomical Collection Method Collection Time Receive d Time (Source) Location / / Volume Laterality 10/10/2011 11:28 10/10/2011 PM CDT 11:28 PM CDT Historical Provider LAB URINE ORDERABLES Performing Organization Address City/[facility]/ZIP Code Phon e Number [facility] LABORATORIES - [address] [place] [phone] [facility] (ABNORMAL) Microscopic Manual (10/10/2011 11:28 PM CDT) Patholo gist Method Time Signature Microscopy Abnormal [facility] Blood >100 (A) <3; /HPF [facility] Transitional 1-3 (A) /HPF [facility] Cells [facility] Dysmorphic RBC <25 <25 % [facility] WBC 4-10 (A) 1-3 [facility] (Males); LABORATORIES - 1-10 [facility] (Females) [place] ; /HPF Specimen Anatomical Collection Method Collection Time Receive d Time (Source) Location / / Volume Laterality 10/10/2011 11:28 10/10/2011 PM CDT 11:28 PM CDT Historical Provider LAB URINE ORDERABLES Performing Organization Address [facility] [place] Phon e Number [facility] LABORATORIES - [address] [place] [phone] [facility] (ABNORMAL) Electrolyte (Chem 4) Panel (10/10/2011 11:16 PM CDT) P athologist Signature Potassium, P 4.2 3.6 - 5.2 [facility] MMOL/L [facility] Comment: Slightly hemolyzed BUN (Blood Urea Nitrogen), 11 8 - 24 MG/DL [facility] - [facility] S eGFR Non-Black/ >60 >60 ML/MIN/BSA MA [facility] S eGFR-Black/ >60 >60 ML/MIN/BSA [facility] [place] S Chloride, S 116 (H) 100 - 108 MMOL/L [facility] [place][NOTE 3] S Sodium, P 144 135 - 145 MMOL/L [facility] S HX Bicarbonate, P/S 22 22 - 29 MMOL/L [facility] [place][NOTE 3] S Creatinine 1.1 0.8 - 1.3 MG/DL [facility] S Glucose, S 95 70 - 140 MG/DL [facility] [place] S Specimen Anatomical Collection Method Collection Time Receive d Time (Source) Location / / Volume Laterality 10/10/2011 11:16 10/10/2011 PM CDT 11:16 PM CDT Maria C Chavez M.D., Ph.D. LAB BLOOD ADD-ON Performing Organization Address City/[facility]/ZIP Code Phon e Number [facility] LABORATORIES - [address] [place] [phone] [facility] Lipase (10/10/2011 11:16 PM CDT) P athologist Signature Lipase, S 28 10 - 73 U/L [facility] Specimen Anatomical Collection Method Collection Time Receive d Time (Source) Location / / Volume Laterality 10/10/2011 11:16 10/10/2011 PM CDT 11:16 PM CDT Maria C Chavez M.D., Ph.D. LAB BLOOD ADD-ON Performing Organization Address City/[facility]/ZIP Code Phon e Number [facility] LABORATORIES - [address] [place] [phone] [facility] Alkaline Phosphatase (10/10/2011 11:16 PM CDT) P athologist Signature Alkaline 68 45 - 115 [facility] Phosphatase, S U/L [facility] - [facility] Specimen Anatomical Collection Method Collection Time Receive d Time (Source) Location / / Volume Laterality 10/10/2011 11:16 10/10/2011 PM CDT 11:16 PM CDT Maria C Chavez M.D., Ph.D. LAB BLOOD ADD-ON Performing Organization Address City/[facility]/ZIP Code Phon e Number [facility] LABORATORIES - [address] [place] [phone] [facility] AST (Aspartate Aminotransferase) (10/10/2011 11:16 PM CDT) Patholo gist Method Time Signature Aspartate 37 8 - 48 [facility] Aminotransferase U/L LABORATORIES - (AST), P [facility] Comment: Slightly hemolyzed Specimen Anatomical Collection Method Collection Time Receive d Time (Source) Location / / Volume Laterality 10/10/2011 11:16 10/10/2011 PM CDT 11:16 PM CDT Maria C Chavez M.D., Ph.D. LAB BLOOD ADD-ON Performing Organization Address City/[facility]/ZIP Code Phon e Number [facility] LABORATORIES - [address] [place] [phone] [facility] Bilirubin, Total (10/10/2011 11:16 PM CDT) P athologist Signature Bilirubin, 0.1 0.1 - 1.0 [facility] Total, P MG/DL [facility] Specimen Anatomical Collection Method Collection Time Receive d Time (Source) Location / / Volume Laterality 10/10/2011 11:16 10/10/2011 PM CDT 11:16 PM CDT Maria C Chavez M.D., Ph.D. LAB BLOOD ADD-ON Performing Organization Address City/State/ZIP Code Phon e Number [facility] - [address] [place] [phone] [facility] Lactate (10/10/2011 11:16 PM CDT) athologist Signature Lactate, P 1.0 0.6 - 2.3 [facility] MMOL/L [facility] Specimen Anatomical Collection Method Collection Time Receive d Time (Source) Location / / Volume Laterality 10/10/2011 11:16 10/10/2011 PM CDT 11:16 PM CDT Maria C Chavez M.D., Ph.D. LAB BLOOD NON ADD-ON Performing Organization Address City/State/ZIP Code Phon e Number [facility] - [address] [place] [phone] [facility] Amylase, Total (10/10/2011 11:16 PM CDT) athologist Signature Amylase, 44 26 - 102 [facility] Total, S U/L [facility] Specimen Anatomical Collection Method Collection Time Receive d Time (Source) Location / / Volume Laterality 10/10/2011 11:16 10/10/2011 PM CDT 11:16 PM CDT Maria C Chavez M.D., Ph.D. LAB BLOOD ADD-ON Performing Organization Address City/[facility]/ZIP Code Phon e Number [facility] [address] [place] [phone] [facility] (ABNORMAL) CBC with Differential (10/10/2011 11:16 PM CDT) [facility] Method Time Signature Hemoglobin 12.8 (L) 13.5 - [facility] 17.5 G/DL [facility] Hematocrit 38.7 (L) 38.8 - [facility] 50.0 % LABORATORIES - [facility] Leukocytes 12.3 (H) 3.5 - [facility] 10.5 LABORATORIES - X10(9)/L [facility] Neutrophils 9.75 (H) 1.70 - [facility] 7.00 LABORATORIES - X10(9)/L [facility] Erythrocytes 4.15 (L) 4.32 - [facility] 5.72 LABORATORIES - X10(12)/L [facility] MCV 93.3 81.2 - [facility] 95.1 FL LABORATORIES - [facility] RBC Distrib 13.2 11.8 - [facility] Width 15.6 % LABORATORIES - [facility] Platelet Count 311 150 - 450 [facility] X10(9)/L LAB[facility]ATORIES - [facility] Lymphocytes 1.50 0.90 - [facility] 2.90 LABORATORIES - X10(9)/L [facility] Monocytes 0.80 0.30 - [facility] 0.90 LABORATORIES - X10(9)/L [facility] Eosinophils 0.14 0.05 - [facility] 0.50 LABORATORIES - X10(9)/L [facility] Basophils 0.06 0.00 - [facility] 0.30 LABORATORIES - X10(9)/L [facility] Specimen Anatomical Collection Method Collection Time Receive d Time (Source) Location / / Volume Laterality 10/10/2011 11:16 10/10/2011 PM CDT 11:16 PM CDT Maria C Chavez M.D., Ph.D. LAB BLOOD ADD-ON Performing Organization Address City/[facility] Code Phon e Number [facility] LABORATORIES - [address] [place] [phone] [facility] Bilirubin, Direct (10/10/2011 11:16 PM CDT) P athologist Signature Bilirubin, <0.1 0.0 - 0.3 [facility] Direct, P MG/DL [facility]IES - [facility] Specimen Anatomical Collection Method Collection Time Receive d Time (Source) Location / / Volume Laterality 10/10/2011 11:16 10/10/2011 PM CDT 11:16 PM CDT Maria C Chavez M.D., Ph.D. LAB BLOOD ADD-ON Performing Organization Address City/[facility] Code Phon e Number [facility] LABORATORIES - [address] [place] [phone] [facility] Glucose, POCT (10/10/2011 11:15 PM CDT) [facility] Method Time Signature Glucose, POCT, 100 70 - 140 [facility] B MG/DL [facility]IES - [facility] Sample Site, Venstick [facility] Blood Gas, LABORATORIES - POCT [facility] Specimen Anatomical Collection Method Collection Time Receive d Time (Source) Location / / Volume Laterality 10/10/2011 11:15 10/10/2011 PM CDT 11:15 PM CDT Maria C Chavez M.D., Ph.D. LAB POCT ORDERABLES-THAI Patel Performing Organization Address City/[facility] Code Phon e Number [facility] LABORATORIES - [address] [place] [phone] [facility] (ABNORMAL) Dipstick, POCT, Urine (lab) (10/10/2011 11:13 PM CDT) [facility] Method [place] Signature Ketone, POCT, Negative Negative [facility] U LABORATORIES - [facility] Specific >=1.030 1.001 - [facility] [place], 1.035 LABORATORIES - POCT, U [facility] Protein, 2+ (A) Negative [facility] POCT, U [facility] - [facility] Urobilinogen, 0.2 0.2 - 1.0 [facility] POCT, Urine LABORATORIES - [facility] Glucose, Negative Negative [facility] POCT, [facility] - [facility] Bilirubin, Negative Negative [facility] POCT, [facility] Blood, POCT, 3+ (A) Negative [facility] [place] pH, POCT, 5.5 5.0 - 8.0 [facility] Urine LABORATORIES - [facility] Nitrites, Negative Negative [facility] POCT, U [facility] Leukocytes, Negative Negative [facility] POCT, [facility] Specimen Anatomical Collection Method Collection Time Receive d Time (Source) Location / / Volume Laterality 10/10/2011 11:13 10/10/2011 PM CDT 11:13 PM CDT Historical Provider LAB POCT ORDERABLES - DEVICE Performing Organization Address City/[facility]/ZIP Code Phon e Number [facility] LABORATORIES - [address] [place], [place] [address] [facility] documented in this encounter Visit Diagnoses Not on filedocumented in this encounter
--- OUTSIDE RECORDS SUMMARY | 2022-02-03 00:36 | XMS_ITS | Encounter Summary ---
:1975 Author Organization [facility] Address [address] [place] [address] Care Team Providers Name Role Phone Unavailable Primary Care Provider Unavailable Encounter Details Date Type Department Care Team Description 02/12/2010 Hospital Encounter HX NO MAPPING Guille Maxwell M.D. [address] [place] [address] [phone] (Wo rk) Social History Tobacco Use Types Packs/Day Years Used Date Smoking Tobacco: Never Assessed Sex Assigned at Date Recorded Not on file documented as of this encounter Plan of Treatment Not on filedocumented as of this encounter Visit Diagnoses Not on filedocumented in this encounter
--- OUTSIDE RECORDS SUMMARY | 2022-02-03 00:36 | XMS_ITS | Encounter Summary ---
:1975 Author Organization [facility] Address [address] [place] [address] Care Team Providers Name Role Phone Unavailable Primary Care Provider Unavailable Encounter Details Date Type Department Care Team Description 08/14/2001 Hospital Encounter HX NO MAPPING Social History Tobacco Use Types Packs/Day Years Used Date Smoking Tobacco: Never Assessed Sex Assigned at Date Recorded Not on file documented as of this encounter Plan of Treatment Not on filedocumented as of this encounter Visit Diagnoses Not on filedocumented in this encounter
--- OUTSIDE RECORDS SUMMARY | 2022-02-03 00:36 | XMS_ITS | Encounter Summary ---
:1975 Author Organization [facility] Address [address] [place] [address] Care Team Providers Name Role Phone Unavailable Primary Care Provider Unavailable Encounter Details Date Type Department Care Team Description 08/30/2013 Hospital Encounter HX RST EMERGENCY Provider, Historic al TRAUMA UNI Social History Tobacco Use Types Packs/Day Years Used Date Smoking Tobacco: Never Assessed Sex Assigned at Date Recorded Not on file documented as of this encounter Plan of Treatment Not on filedocumented as of this encounter Procedures Procedure Name Priority Date/Time Associated Comments Diagnosis INFLUENZA VIRUS A/B AND Routine 08/30/2013 9:08 R esults for this RSV, PCR PM CDT procedure are i n the results section. STREP GROUP A PCR Routine 08/30/2013 8:10 Results for this PM CDT procedure are i n the results section. HX MICROBIOLOGY REPORTS Routine 08/30/2013 7:42 R esults for this PM CDT procedure are i n the results section. MICROSCOPIC MANUAL Routine 08/30/2013 7:42 Result s for this PM CDT procedure are i n the results section. GRAM'S STAIN, Routine 08/30/2013 7:42 Results for this CONFIRMATORY, U PM CDT procedure ar e in the results section. URINALYSIS WITH Routine 08/30/2013 7:42 Results f or this MICROSCOPIC PM CDT procedure are i n the results section. DIPSTICK, POCT, U Routine 08/30/2013 7:15 Results for this (DIPC1) PM CDT procedure are i n the results section. DX CHEST AP OR PA AND Routine 08/30/2013 6:36 Res ults for this LATERAL 2 VIEWS PM CDT procedure ar e in the results section. DX NECK SOFT TISSUE Routine 08/30/2013 6:36 Resul ts for this PM CDT procedure are i n the results section. ABORH, RBC Routine 08/30/2013 4:59 Results for this PM CDT procedure are i n the results section. ANTIBODY SCREEN, B Routine 08/30/2013 4:59 Result s for this PM CDT procedure are i n the results section. HX MICROBIOLOGY REPORTS Routine 08/30/2013 4:46 R esults for this PM CDT procedure are i n the results section. HX MICROBIOLOGY REPORTS Routine 08/30/2013 4:35 R esults for this PM CDT procedure are i n the results section. ELECTROLYTE (CHEM 4) Routine 08/30/2013 4:35 Resu lts for this PANEL, S/P PM CDT procedure are i n the results section. LACTATE, POCT, B Routine 08/30/2013 4:35 Results for this PM CDT procedure are i n the results section. PROTHROMBIN TIME (PT), P Routine 08/30/2013 4:35 Results for this PM CDT procedure are i n the results section. CBC WITH DIFFERENTIAL, B Routine 08/30/2013 4:35 Results for this PM CDT procedure are i n the results section. ASPARTATE Routine 08/30/2013 4:35 Results for this AMINOTRANSFERASE (AST), PM CDT proc edure are in S/P the results section. BILIRUBIN DIRECT, S/P Routine 08/30/2013 4:35 Res ults for this PM CDT procedure are i n the results section. BILIRUBIN, TOT, S/P Routine 08/30/2013 4:35 Resul ts for this PM CDT procedure are i n the results section. GLUCOSE POCT, B Routine 08/30/2013 4:31 Results f or this PM CDT procedure are i n the results section. documented in this encounter Results Influenza Virus A/B and RSV, PCR (08/30/2013 9:08 PM CDT) P athologist Signature Influenza . [facility] Source.. LABORATORIES - [facility] Comment: THROAT SWAB Influenza A, PCR Negative Not applicable [facility] LABORATORIES [facility] Respiratory Syncytial Negative [facility] LABORATORIES - Virus, PCR [facility] Comment: Nasopharyngeal specimens are pr eferred for RSV detection. Influenza B, PCR Negative Not applicable [facility] RSV Source. . [facility] LABORA TORIES - [facility] Comment: THROAT SWAB Specimen Anatomical Collection Method Collection Time Receive d Time (Source) Location / / Volume Laterality 08/30/2013 9:08 PM 4 9:08 CDT PM CDT Maira Archer M.D. LAB MICROBIOLOGY - GENERAL O RYLIE Performing Organization Address City/State/ZIP Code Phon e Number [facility] LABORATORIES - [address] [place] [phone] [facility] Strep Group A PCR (08/30/2013 8:10 PM CDT) athologist Signature Specimen . [facility] Source (Strep LABORATORIES - Group A) [facility] Comment: THROAT SWAB Group A Strep, PCR Negative Not Applicable [facility] [place] Comment: Laboratory developed test. Specimen Anatomical Collection Method Collection Time Receive d Time (Source) Location / / Volume Laterality 08/30/2013 8:10 PM 4 8:10 CDT PM CDT Maira Archer M.D. LAB MICROBIOLOGY - GENERAL O RYLIE Performing Organization Address City/State/ZIP Code Phon e Number [facility] LABORATORIES - [address] [place] [address] [facility] Microbiology Reports (08/30/2013 7:42 PM CDT) Specimen Anatomical Collection Method Collection Time Receive d Time (Source) Location / / Volume Laterality 08/30/2013 7:42 PM 4 7:44 CDT PM CDT Narrative [facility] - 09/01/2013 7:21 AM CDT 30-AUG-2013 URINE, MIDSTREAM, ?SoftOrd# [id number] ?(Ordered 30-AUG-2013; Collec renny 30-AUG-2013 19:42; Received 30-AUG-2013 21:23) ?[facility] ?BACTERIAL CULTURE, AEROBIC + MATIAS SC ? (Reported 01-SEP-2013 07:21) FINAL ?No Growth after 1 day of inc ubation. Procedure Note 08/04/2017 30-AUG-2013 URINE, MIDSTREAM, SoftOrd# [id number] (Ordered 30-AUG-2013; Collected 2013 19:42; Received 30-AUG-2013 21:23) [facility] BACTERIAL CULTURE, AEROBIC + SUSC (Rep orted 01-SEP-2013 07:21) FINAL No Growth after 1 day of incubation. Maira Archer M.D. LAB MICROBIOLOGY - GENERAL O RDERABLES Performing Organization Address City/[facility] Code Phon e Number [address] Gram Stain, Confirmatory, Urine (08/30/2013 7:42 PM CDT) [facility] gist Method Time Signature Grams Stain, Negative [facility] Confirmatory, LABORATORIES - Urine [facility] Specimen Anatomical Collection Method Collection Time Receive d Time (Source) Location / / Volume Laterality 08/30/2013 7:42 PM 4 7:42 CDT PM CDT Maira Archer M.D. LAB URINE ORDERABLES Performing Organization Address [facility] Phon e Number [address] Microscopic Manual (08/30/2013 7:42 PM CDT) P athologist Signature Microscopy Normal [facility] Specimen Anatomical Collection Method Collection Time Receive d Time (Source) Location / / Volume Laterality 08/30/2013 7:42 PM 4 7:42 CDT PM CDT Maira Archer M.D. LAB URINE ORDERABLES Performing Organization Address [facility] Phon e Number [address] (ABNORMAL) Urinalysis with Microscopic (08/30/2013 7:42 PM CDT) [facility] gist Method Time Signature pH, 24 HR, U 6.6 4.5 - 8.0 [facility] Appearance Normal Normal [facility] Protein/Osmola 0.13 (H) <0.12 RATIO [facility] lity [facility] Predicted 24 138 MG/24 H [facility] Hr Protein [facility] Source Midstream [facility] Osmolality, 24 75 (L) 150 - 1150 [facility] HR, U MOSM/KG LABORATORIES [facility] Glucose <2 0 - 15 MG/DL [facility] Protein, U 1 0 - 19 MG/DL [facility] Predicted 44-435 MG/24 H [facility] Range [facility] Hemoglobin, QL Negative Negative [facility] Specimen Anatomical Collection Method Collection Time Receive d Time (Source) Location / / Volume Laterality 08/30/2013 7:42 PM 4 7:42 CDT PM CDT Maira Archer M.D. LAB URINE ORDERABLES Performing Organization Address City/State/ZIP Code Phon e Number [facility] - [address] [place], [place] [address] [facility] Dipstick, POCT, Urine (lab) (08/30/2013 7:15 PM CDT) [facility] gist Method Time Signature Glucose, Negative Negative [facility] POCT, [facility] Bilirubin, Negative Negative [facility] POCT, [facility] Blood, POCT, Negative Negative [facility] pH, POCT, 5.5 5.0 - 8.0 [facility] Urine [facility] Protein, Negative Negative [facility] POCT, [facility] Urobilinogen, 0.2 0.2 - 1.0 [facility] POCT, Urine LABORATORIES [facility] Nitrites, Negative Negative [facility] POCT, U [facility] Leukocytes, Negative Negative [facility] POCT, [facility] Ketone, POCT, Negative Negative [facility] Specific <=1.005 1.001 - [facility] [place], 1.035 LABORATORIES - POCT, U [facility] Specimen Anatomical Collection Method Collection Time Receive d Time (Source) Location / / Volume Laterality 08/30/2013 7:15 PM 4 7:15 CDT PM CDT Historical Provider LAB POCT ORDERABLES - DEVICE Performing Organization Address City/State/ZIP Code Phon e Number [facility] LABORATORIES - [address] [place], [place] [address] [facility] DX Neck Soft Tissue (08/30/2013 6:36 PM CDT) Anatomical Region Laterality Modality Neck N/A Radiographic Imaging Specimen (Source) Anatomical Collection Method Collection Time Re ceived Time Location / / Volume Laterality 08/30/2013 6:36 PM CDT Narrative 08/30/2013 6:51 PM CDT 30-Aug-2013 18:36:00 ??Exam: Neck-Soft Tissue Indications: fever, sore throat ORIGINAL REPORT - 30-Aug-2013 18:43:00 Neck-Soft Tissue: No abnormal soft tissue swelling in the neck. Normal appearing epiglottis. The visualized cervical spine is normal. Electronically signed by: ?? Dom Muro MD [phone] 30-Aug-2013 18:4 3 I have reviewed the films/images and agr ee with the above interpretation. Electronically signed by: ?? Frank Porter ??Wendy 30-Aug-2013 18:51 Procedure Note Frank Porter M.D., Ph.D. - 07/25/19 18 30-Aug-2013 18:36:00 Exam: Neck-Soft Tis sánchez Indications: fever, sore throat ORIGINAL REPORT - 30-Aug-2013 18:43:00 Neck-Soft Tissue: No abnormal soft tissue swelling in the neck. Normal appearing epiglottis. The visualized cervical spine is normal. Electronically signed by: Dom Muro MD [phone] 30-Aug-2013 18:4 3 I have reviewed the films/images and agr ee with the above interpretation. Electronically signed by: Frank Porter M.D. 30-Aug-2013 18:51 Maira Archer M.D. IMEze DIAGNOSTIC IMAGING PROCE DURES DX Chest AP or PA and Lateral 2 Views (08/30/2013 6:36 PM CDT) Anatomical Region Laterality Modality Chest N/A Radiographic Imaging Specimen (Source) Anatomical Collection Method Collection Time Re ceived Time Location / / Volume Laterality 08/30/2013 6:36 PM CDT Narrative 08/30/2013 6:51 PM CDT 30-Aug-2013 18:36:00 ??Exam: Chest-- 2 Views Indications: fever, sore throat ORIGINAL REPORT - 30-Aug-2013 18:44:00 Chest; 2 views: Negative chest. Electronically signed by: ?? Dom Muro MD [phone] 30-Aug-2013 18:4 4 I have reviewed the films/images and agr ee with the above interpretation. Electronically signed by: ?? Frank Porter ??Wendy 30-Aug-2013 18:51 Procedure Note Frank Porter M.D., Ph.D. - 07/25/19 18 30-Aug-2013 18:36:00 Exam: Chest-- 2 Vie ws Indications: fever, sore throat ORIGINAL REPORT - 30-Aug-2013 18:44:00 Chest; 2 views: Negative chest. Electronically signed by: Dom Muro MD [phone] 30-Aug-2013 18:4 4 I have reviewed the films/images and agr ee with the above interpretation. Electronically signed by: Frank Porter M.D. 30-Aug-2013 18:51 Maira Archer M.D. IMG DIAGNOSTIC IMAGING PROCE DURES Antibody Screen, RBC (08/30/2013 4:59 PM CDT) Patholo gist Method Time Signature Antibody Negative [facility] Screen [facility] Specimen (Source) Anatomical Collection Method Collection Time Re ceived Time Location / / Volume Laterality 08/30/2013 4:59 PM CDT Historical Provider LAB BLOOD BANK TEST ORDERABL ES Performing Organization Address City/[facility] Code Phon e Number [facility] LABORATORIES - [address] [place] [address] [facility] ABORh, RBC (08/30/2013 4:59 PM CDT) P athologist Signature HXABO/RH BLOOD A Neg [facility] TYPE [facility] Specimen (Source) Anatomical Collection Method Collection Time Re ceived Time Location / / Volume Laterality 08/30/2013 4:59 PM CDT Historical Provider LAB BLOOD BANK TEST ORDERABL ES Performing Organization Address City/[facility]/ZIP Code Phon e Number [facility] LABORATORIES - [address] [place] [phone] [facility] Microbiology Reports (08/30/2013 4:46 PM CDT) Specimen Anatomical Collection Method Collection Time Receive d Time (Source) Location / / Volume Laterality 08/30/2013 4:46 PM 4 4:47 CDT PM CDT Narrative [facility] - 09/04/2013 6:31 PM CDT 30-AUG-2013 BLOOD, ? SoftOrd# [id number] ?(Ordered 30-AUG-2013; Collec renny 30-AUG-2013 16:46; Received 30-AUG-2013 17:28) ?[facility] ?BACTERIA/WINNIE CULTURE, BLOOD ? (Reported 04-SEP-2013 18:30) FINAL ?No growth after 5 days of in cubation. Procedure Note 08/04/2017 30-AUG-2013 BLOOD, SoftOrd# [id number] (Ordered 30-AUG-2013; Collected 2013 16:46; Received 30-AUG-2013 17:28) [facility] BACTERIA/WINNIE CULTURE, BLOOD (Repor renny 04-SEP-2013 18:30) FINAL No growth after 5 days of incubation. Maira Archer M.D. LAB MICROBIOLOGY - GENERAL O RDERABLES Performing Organization Address City/State/ZIP Code Phon e Number [facility] LABORATORIES - [address] [place], [place] [address] [facility] Microbiology Reports (08/30/2013 4:35 PM CDT) Specimen Anatomical Collection Method Collection Time Receive d Time (Source) Location / / Volume Laterality 08/30/2013 4:35 PM 4 4:36 CDT PM CDT Narrative [facility] - [facility] - 09/04/2013 11:30 PM CDT 30-AUG-2013 BLOOD, ? SoftOrd# [id number] ?(Ordered 30-AUG-2013; Collec renny 30-AUG-2013 16:35; Received 30-AUG-2013 18:42) ?[facility] ?Peripheral IV ?BACTERIA/WINNIE CULTURE, BLOOD ? (Reported 04-SEP-2013 23:30) FINAL ?No growth after 5 days of in cubation. Procedure Note 08/04/2017 30-AUG-2013 BLOOD, SoftOrd# [id number] (Ordered 30-AUG-2013; Collected 2013 16:35; Received 30-AUG-2013 18:42) [facility] Peripheral IV BACTERIA/WINNIE CULTURE, BLOOD (Repor renny 04-SEP-2013 23:30) FINAL No growth after 5 days of incubation. Maira Archer M.D. LAB MICROBIOLOGY - GENERAL O RDERABLES Performing Organization Address City/State/ZIP Code Phon e Number [facility] LABORATORIES - [address] [place], [place] [address] [facility] Lactate, POCT (08/30/2013 4:35 PM CDT) Patholo gist Method Time Signature Lactate, POCT 1.03 0.60 - [facility] 2.30 LABORATORIES - MMOL/L [facility] Sample Site, Venstick [facility] POCT LABORATORIES - [facility] Specimen Anatomical Collection Method Collection Time Receive d Time (Source) Location / / Volume Laterality 08/30/2013 4:35 PM 4 4:35 CDT PM CDT Historical Provider LAB POCT ORDERABLES - DEVICE Performing Organization Address City/[facility]/ZIP [facility] Phon e Number [facility] LABORATORIES - [address] [place], [place] [address] [facility] Bilirubin, Direct (08/30/2013 4:35 PM CDT) athologist Signature Bilirubin, <0.1 0.0 - 0.3 [facility] Direct, P MG/DL [facility] Comment: Peripheral IV Specimen Anatomical Collection Method Collection Time Receive d Time (Source) Location / / Volume Laterality 08/30/2013 4:35 PM 4 4:35 CDT PM CDT [facility] - 08/30/2013 5:21 PM CDT Peripheral IV Maira Archer M.D. LAB BLOOD ADD-ON Performing Organization Address City/[facility]/ZIP Code Phon e Number [facility] - [address] [place], [place] [address] [facility] Bilirubin, Total (08/30/2013 4:35 PM CDT) athologist Signature Bilirubin, 0.3 0.1 - 1.0 [facility] Total, P MG/DL [facility] Comment: Peripheral IV Specimen Anatomical Collection Method Collection Time Receive d Time (Source) Location / / Volume Laterality 08/30/2013 4:35 PM 4 4:35 CDT PM CDT Narrative [facility] - 08/30/2013 5:20 PM CDT Peripheral IV Maira Archer M.D. LAB BLOOD ADD-ON Performing Organization Address City/[facility]/ZIP Code Phon e Number [facility] LABORATORIES - [address] [place], [place] [address] [facility] AST (Aspartate Aminotransferase) (08/30/2013 4:35 PM CDT) [facility] Method Time Signature Aspartate 19 8 - 48 [facility] Aminotransferase U/L LABORATORIES - (AST), [facility] Comment: Peripheral IV Specimen Anatomical Collection Method Collection Time Receive d Time (Source) Location / / Volume Laterality 08/30/2013 4:35 PM 4 4:35 CDT PM CDT Narrative [facility] - 08/30/2013 5:17 PM CDT Peripheral IV Maira Archer M.D. LAB BLOOD ADD-ON Performing Organization Address City/State/[facility] Code Phon e Number [facility] - [address] (ABNORMAL) Electrolyte (Chem 4) Panel (08/30/2013 4:35 PM CDT) athologist Signature Sodium, P 137 135 - 145 [facility] MMOL/L [facility] Comment: Peripheral IV Potassium, P 3.8 3.6 - 5.2 MMOL/L [facility] ERI C [facility] Comment: Peripheral IV eGFR Non-Black/ >60 >60 ML/MIN/BSA [facility] S Comment: Peripheral IV eGFR-Black/ >60 >60 ML/MIN/BSA [facility] S Comment: Peripheral IV Glucose, S 88 70 - 140 MG/DL [facility] Comment: Peripheral IV BUN (Blood Urea Nitrogen), S <5 (L) 8 - 24 MG/DL [facility] S Comment: Peripheral IV HX Bicarbonate, P/S 26 22 - 29 MMOL/L [facility] Comment: Peripheral IV Creatinine 1.0 0.8 - 1.3 MG/DL [facility] ER IC [facility] Comment: Peripheral IV Chloride, S 103 100 - 108 MMOL/L [facility] Comment: Peripheral IV Specimen Anatomical Collection Method Collection Time Receive d Time (Source) Location / / Volume Laterality 08/30/2013 4:35 PM 4 4:35 CDT PM CDT Narrative [facility] - 08/30/2013 5:21 PM CDT Peripheral IV Maira Archer M.D. LAB BLOOD ADD-ON Performing Organization Address City/[facility] Code Phon e Number [facility] - [address] [place] [phone] [facility] PT (Prothrombin Time) with INR (08/30/2013 4:35 PM CDT) Patholo gist Method Time Signature Prothrombin 11.4 9.5 - 13.8 [facility] Time, P [facility] Comment: Peripheral IV INR 1.0 0.8 - 1.2 [facility] LABORATO [facility] Comment: Peripheral IV Specimen Anatomical Collection Method Collection Time Receive d Time (Source) Location / / Volume Laterality 08/30/2013 4:35 PM 4 4:35 CDT PM CDT Narrative [facility] - 08/30/2013 4:57 PM CDT Peripheral IV Maira Archer M.D. LAB BLOOD ADD-ON Performing Organization Address City/State/ZIP Code Phon e Number [facility] - [address] [place], [place] [address] [facility] (ABNORMAL) CBC with Differential (08/30/2013 4:35 PM CDT) athologist Signature Erythrocytes 4.85 4.32 - [facility] 5.72 LABORATORIES - X10(12)/L [facility] Comment: Peripheral IV MCV 90.5 81.2 - 95.1 FL [facility] LAB ORATORIES [facility] Comment: Peripheral IV RBC Distrib Width 13.2 11.8 - 15.6 % [facility] Comment: Peripheral IV Platelet Count 285 150 - 450 X10(9)/L [facility] Comment: Peripheral IV Lymphocytes 1.10 0.90 - 2.90 X10(9)/L [facility] Comment: Peripheral IV Monocytes 1.04 (H) 0.30 - 0.90 X10(9)/L [facility] Comment: Peripheral IV Hemoglobin 15.3 13.5 - 17.5 G/DL [facility] Comment: Peripheral IV Hematocrit 43.9 38.8 - 50.0 % [facility] Comment: Peripheral IV Leukocytes 15.6 (H) 3.5 - 10.5 X10(9)/L [facility] Comment: Peripheral IV Neutrophils 13.34 (H) 1.70 - 7.00 X10(9)/L [facility] Comment: Peripheral IV Eosinophils 0.04 (L) 0.05 - 0.50 X10(9)/L [facility] Comment: Peripheral IV Basophils 0.05 0.00 - 0.30 X10(9)/L [facility] ER IC LABORATORIES - [facility] Comment: Peripheral IV Specimen Anatomical Collection Method Collection Time Receive d Time (Source) Location / / Volume Laterality 08/30/2013 4:35 PM 4 4:35 CDT PM CDT Narrative [facility] LABORATORIES - [facility] - 08/30/2013 4:50 PM CDT Peripheral IV Maira Archer M.D. LAB BLOOD ADD-ON Performing Organization Address City/State/ZIP Code Phon e Number [facility] LABORATORIES - [address] [place] [phone] [facility] Glucose, POCT (08/30/2013 4:31 PM CDT) [facility] gist Method Time Signature Glucose, POCT, 94 70 - 140 [facility] B MG/DL LABORATORIES - [facility] Sample Site, Venstick [facility] Blood Gas, LABORATORIES - POCT [facility] Specimen Anatomical Collection Method Collection Time Receive d Time (Source) Location / / Volume Laterality 08/30/2013 4:31 PM 4 4:31 CDT PM CDT Historical Provider LAB POCT ORDERABLES-MANUAL Performing Organization Address City/[facility]/ZIP Code Phon e Number [facility] LABORATORIES - [address] documented in this encounter Visit Diagnoses Not on filedocumented in this encounter
--- OUTSIDE RECORDS SUMMARY | 2022-02-03 00:36 | XMS_ITS | Encounter Summary ---
:1975 Author Organization [facility] Address [address] [place] [address] Care Team Providers Name Role Phone Unavailable Primary Care Provider Unavailable Encounter Details Date Type Department Care Team Description 02/03/2002 Hospital Encounter HX NO MAPPING Social History Tobacco Use Types Packs/Day Years Used Date Smoking Tobacco: Never Assessed Sex Assigned at Date Recorded Not on file documented as of this encounter Plan of Treatment Not on filedocumented as of this encounter Visit Diagnoses Not on filedocumented in this encounter
--- OUTSIDE RECORDS SUMMARY | 2022-02-03 00:36 | XMS_ITS | Encounter Summary ---
:1975 Author Organization [facility] Address [address] [place] [id number] Care Team Providers Name Role Phone Unavailable Primary Care Provider Unavailable Encounter Details Date Type Department Care Team Description 06/03/2000 Hospital Encounter HX RST MICHEL 3G Social History Tobacco Use Types Packs/Day Years Used Date Smoking Tobacco: Never Assessed Sex Assigned at Date Recorded Not on file documented as of this encounter Plan of Treatment Not on filedocumented as of this encounter Visit Diagnoses Not on filedocumented in this encounter
--- OUTSIDE RECORDS SUMMARY | 2022-02-03 00:36 | XMS_ITS | Encounter Summary ---
:1975 Author Organization [facility] Address [address] [place] [id number] Care Team Providers Name Role Phone Unavailable Primary Care Provider Unavailable Encounter Details Date Type Department Care Team Description 06/27/2009 Hospital Encounter HX NO MAPPING Michael Blue M.D. [address] [place] [address] [phone] (Wo rk) Social History Tobacco Use Types Packs/Day Years Used Date Smoking Tobacco: Never Assessed Sex Assigned at Date Recorded Not on file documented as of this encounter Plan of Treatment Not on filedocumented as of this encounter Visit Diagnoses Not on filedocumented in this encounter
--- OUTSIDE RECORDS SUMMARY | 2022-02-03 00:36 | XMS_ITS | Encounter Summary ---
:1975 Author Organization [facility] Address [address] [place] [id number] Care Team Providers Name Role Phone Unavailable Primary Care Provider Unavailable Encounter Details Date Type Department Care Team Description 09/11/2012 Hospital Encounter HX NO MAPPING North Dainels M.D. [address] [place] [address] [phone] (Wo rk) Social History Tobacco Use Types Packs/Day Years Used Date Smoking Tobacco: Never Assessed Sex Assigned at Date Recorded Not on file documented as of this encounter Plan of Treatment Not on filedocumented as of this encounter Visit Diagnoses Not on filedocumented in this encounter
--- OUTSIDE RECORDS SUMMARY | 2022-02-03 00:36 | XMS_ITS | Encounter Summary ---
:1975 Author Organization [facility] Address [address] [place] [address] Care Team Providers Name Role Phone Unavailable Primary Care Provider Unavailable Encounter Details Date Type Department Care Team Description 01/31/2017 - Hospital Encounter HX [facility] Catherine Gupta 02/01/2017 Wendy Calixto [address] [place] [phone] (Wo rk) Social History Tobacco Use Types Packs/Day Years Used Date Smoking Tobacco: Unknown Sex Assigned at Date Recorded Not on file documented as of this encounter Last Filed Vital Signs Vital Sign Reading Time Taken Comments Blood Pressure 153/102 01/31/2017 11:06 PM CDT Pulse 67 01/31/2017 11:06 PM CDT Temperature - - Respiratory Rate 16 01/31/2017 11:06 PM CDT Oxygen Saturation - - Inhaled Oxygen Concentration - - Weight - - Height - - Body Mass Index - - documented in this encounter Discharge Summaries Meek Blair, RZachN. - 02/01/2017 5:34 AM CDT ED Depart Summary [facility] Emergency Department / Urgent Care Clinical Discharge Summary PERSON INFORMATION Name BRIAN MOMIN Age 41 Years 1975 12:00 AM Sex Male Language Eritrean PCP PCP, ELSEWHERE Marital Status Visit Id Visit Reason Blood in urine; urge to urinate unable to Specialty Enc Type Emergency Med Service Emergency Medicine Referred by Track Group [facility] ED/UC Discharge 02/01/2017 2:10 AM Tracking Id [id number] Checkout 02/01/2017 2:10 AM Checkin 01/31/2017 10:29 PM Acuity 3 -Urgent Dispo Type * Discharged to Home or Self Care Arrival 01/31/2017 10:29 PM Reg Status Complete LOS 000 03:41 Address: [address] [facility] [phone] Comment: PROVIDER INFORMATION Provider Role Provider Contact Time MEEK BLAIR BOREMATIC OPERATOR Nurse 01/31/17 22:55 EMILIO JIMENEZ DO ED Provider 01/31/17 23:21 DIAGNOSIS Hydronephrosis; Hydroureter; Insufficiency Renal Acute; Pain Flank; Ureterolithiasis Comment: PATIENT EDUCATION INFORMATION Instructions: KIDNEY STONE w/ Colic Follow up: With: Address: When: Go straight to [facility] as discussed. The accepting doctor is Dr. Ponce. Also spoke with Dr. Moseley of Urology there. Within As Needed With: Address: When: ELSEWHERE PCP Within As Needed Source: [facility] POWERCHART Document Id: [id number] HEAT CABINET ATTENDANT Meek Blair, R.N. - 02/01/2017 5:34 AM CDT [place] [address] Name: BRIAN MOMIN Date of : 1975 12:00 AM Visit Date: 01/31/2017 10:29 PM [facility] Number: [id number] Address: [address] [phone] Primary Care Provider: PCP, ELSEWHERE IMPORTANT: [facility] in [place] would like to thank you for allowing us to assist youwith your healthcare needs. The following includes patient education materials and information regarding your injury/illness. Diagnosis: Hydronephrosis; Hydroureter; Insufficiency Renal Acute; Pain Flank; Ureterolithiasis Follow-Up Instructions: With: Address: When: Go straight to [facility] as discussed. The accepting doctor is Dr. Ponce. Also spoke with Dr. Moseley of Urology there. Within As Needed With: Address: When: ELSEWHERE PCP Within As Needed Your Upcoming Appointments: Date Time Location Provider [...] 8 hours and increasing bladder pressure ?? [phone] Jethro Rubin, [address] [place] [address], [place] [address]. All rights reserved. This information is not [...] if you dont have one. Go to [email or web address] and click on Create Your Account. Then, follow the directions to complete the online form. Youll be asked for your [facility] number which you can find at the top of this document. ED Tests and Procedures: Order Status Urinalysis with Culture if Indicated Completed CT Stone Protocol Ordered CBC (includes Auto Differential) Completed Comprehensive Metabolic Panel Completed Lipase Level Completed Automated Diff-5 Part Completed Discharge Prescriptions & Home Medications: Medication/Strength Dose Route Frequency Indications/Special Instructions/Comments/Notes tamsulosin (Flomax 0.4 mg oral capsule) 0.4 mg Oral once a day ondansetron (ondansetron 4 mg oral tablet) 4 mg Oral every 8 hours propranolol (propranolol) 40 mg two times a day HYDROcodone-acetaminophen (HYDROcodone-acetaminophen 5 mg-325 mg oral tablet) 1 tab(s) Oral every 6 hours as needed for Other - per symptoms cyclobenzaprine (Flexeril) See Instructions Take by mouth. DULoxetine (Cymbalta) See Instructions Take by mouth. Comment: Attention: If you have any medications at home that are not on this list, DO NOT take them until youcontact your provider for clarification. Give a copy [...] the instructions above carefully. If you are a patient that is being discharged from the Emergency Department after receiving narcotics or other medications that may impair your judgment you may be a risk to yourself or others if you operate a motor vehicle. We recommend that you arrange a ride home with a responsible green party. LILIANE Tillman TIMOTHY EDWARD or responsible green party have received this information and my questions have been answered. I have discussed any challenges I see with this plan with the nurse or physician. Patient Signature or Responsible Democrat/Relationship Date Time Provider Signature Date Time IMPORTANT: [...] the instructions above carefully. If you are a patient that is being discharged from the Emergency Department after receiving narcotics or other medications that may impair your judgment you may be a risk to yourself or others if you operate a motor vehicle. We recommend that you arrange a ride home with a responsible green party. LILIANE Tillman TIMOTHY EDWARD , or responsible green party have received this information and my questions have been answered. I have discussed any challenges I see with this plan with the nurse or physician. Patient Signature or Responsible Democrat/Relationship Date Time Provider Signature Date Time This document has images extracted. Please consider using [employer] for all your patient education needs. Source: [employer] Document Id: [id number] Meek Blair R.N. - 02/01/2017 2:15 AM CDT ED Disposition Summary ED Disposition Summary Entered On: 02/01/2017 5:33 CDT Performed On: 02/01/2017 2:15 CDT by MEEK BLAIR BOREMATIC OPERATOR Disposition Summary Present in Room During Exam/Procedure : Spouse Mode of Discharge : Ambulatory Transportation : Private vehicle Printed Discharge Instructions Given to Patient : Yes Patient Status at Discharge from ED : Improved 30 Minutes Critical Care : No MEEK BLAIR RN - 02/01/2017 5:32 CDT Source: [employer] Document Id: [id number] CDT!8 documented in this encounter Medications at Time of Discharge Medication Sig Dispensed Refills Start Date End Date propranoloL (INDERAL) 40 mg Take 40 mg by mouth 0 07/07/2015 tablet 2 (two) times a day. documented as of this encounter ED Notes Meek Blair R.N. - 02/01/2017 2:15 AM CDT ED Pain Assessment ED Pain Assessment Entered On: 02/01/2017 5:33 CDT Performed On: 02/01/2017 2:15 CDT by MEEK BLAIR RN Pain Assessment Pain Symptoms : Yes MEEK BLAIR RN - 02/01/2017 5:33 CDT Source: [employer] Document Id: [id number] CDT!3 Meek Blair R.N. - 02/01/2017 1:00 AM CDT ED Nurse Reassess ED Nurse Reassess Entered On: 02/01/2017 5:31 CDT Performed On: 02/01/2017 1:00 CDT by MEEK BLAIR RN Pain Assessment Pain Symptoms : Yes MEEK BLAIR RN - 02/01/2017 5:29 CDT Pain Scale Pain Scale Verbal 0-10 : Open MEEK BLAIR RN - 02/01/2017 5:29 CDT Pain Pain Assessment Grid Pain 1 Location : Abdomen Intensity : 6 MEEK BLAIR RN - 02/01/2017 5:29 CDT Comfort Measures Comfort Measures Grid Comfortable Environment : Yes MEEK BLAIR RN - 02/01/2017 5:29 CDT Peguero Peguero Agitation Sedation Scale (RASS) : Alert and calm RASS Score : 0 MEEK BLIAR RN - 02/01/2017 5:29 CDT Behavioral Health Screen/Safety Reassmt Affect/Behavior : Calm, Cooperative, Appropriate MEEK BLAIR RN - 02/01/2017 5:29 CDT GI Reassess GI Patient Stated Symptoms : Abdominal pain MEEK BLAIR RN - 02/01/2017 5:29 CDT Source: [employer] Document Id: [id number] CDT!20 Meek Blair R.N. - 01/31/2017 11:45 PM CDT ED Nurse Reassess ED Nurse Reassess Entered On: 02/01/2017 5:29 CDT Performed On: 01/31/2017 23:45 CDT by MEEK BLAIR RN Pain Assessment Pain Symptoms : Yes MEEK BLAIR RN - 02/01/2017 5:27 CDT Pain Scale Pain Scale Verbal 0-10 : Open MEEK BLAIR RN - 02/01/2017 5:27 CDT Pain Pain Assessment Grid Pain 1 Location : Abdomen Laterality : Right Intensity : 7 MEEK BLAIR RN - 02/01/2017 5:27 CDT Comfort Measures Comfort Measures Grid Comfortable Environment : Yes Meditation Facilitation : Yes MEEK BLAIR RN - 02/01/2017 5:27 CDT Peguero Peguero Agitation Sedation Scale (RASS) : Alert and calm RASS Score : 0 MEEK BLAIR RN - 02/01/2017 5:27 CDT GI Reassess GI Patient Stated Symptoms : Abdominal pain MEEK BLAIR RN - 02/01/2017 5:27 CDT Source: [employer] Document Id: [id number] CDT!20 Emilio Jimenez - 01/31/2017 11:28 PM CDT Abdominal Pain *ED Patient: BRIAN MOMIN Age: 41 years Sex: Male : 1975 Author: EMILIO JIMENEZ DO Attachments: None Associated Diagnosis: Pain Flank; Ureterolithiasis; Insufficiency Renal Acute; Hydroureter; Hydronephrosis Basic Information Additional information: Chief Complaint from Nursing Triage Note : Chief Complaint Description 01/31/2017 23:06 CDT Chief Complaint Description 41 y/o male presents to ED d/t complaints of urinary frequency and bloody urine, Patient notes s/s have been on-going for several days with no inprovment noted, . History of Present Illness 41yo male here with left flank pain. no trauma. no fever. +n. no v/d. States he was dx with a left sided stone 2 weeks ago. Used a strainer and passed this stone in question. The pain recurred in the left flank. radiates to the LLQ and left testes. No dysuria. +urinary urgency. No chest pain. no cough. pmhx htn. pshx of umbilical hernia repair and small bowel resection from incarceration from umbilical hernia. Review of Systems Constitutional symptoms: No fever. Skin symptoms: No jaundice, no rash or no dryness. Eye symptoms: Negative except as documented in HPI. ENMT symptoms: Negative except as documented in HPI and No trismus. no meningeal signs. . Respiratory symptoms: No shortness of breath or no stridor. Cardiovascular symptoms: No chest pain or no peripheral edema. Gastrointestinal symptoms: left flank pain, but no abdominal pain, no vomiting or no diarrhea. Genitourinary symptoms: No dysuria. Musculoskeletal symptoms: Negative except as documented in HPI. Neurologic symptoms: Negative except as documented in HPI. Hematologic/Lymphatic symptoms: Negative except as documented in HPI. Health Status Allergies: Allergic Reactions (Selected) Severity Not Documented Imitrex- No reactions were documented. Latex- No reactions were documented. OxyCODONE- No reactions were documented. Nonallergic Reactions (Selected) Severity Not Documented Codeine- No reactions were documented. Pertussis vaccines- No reactions were documented.. Past Medical/ Family/ Social History Medical history: No active or resolved past medical history items have been selected or recorded.. Surgical history: No active procedure history items have been selected or recorded.. Family history: No family history items have been selected or recorded.. Physical Examination Vital Signs: Vital Signs 01/31/2017 23:06 CDT Temperature Core 36.4 DegC LOW Peripheral Pulse Rate 67 /min Respiratory Rate 16 /min SpO2 99 % Systolic Blood Pressure 153 mmHg HI Diastolic Blood Pressure 102 mmHg >HHI Mean Arterial Pressure 119 mmHg , SpO2 01/31/2017 23:06 CDT SpO2 99 % . General: Alert and no acute distress. Skin: Warm and dry. Head: Normocephalic and atraumatic. Neck: Supple. Eye: Pupils are equal, round and reactive to light and extraocular movements are intact. Ears, nose, mouth and throat: no stridor. no trismus. no meningeal signs. uvula midline. . Cardiovascular: Regular rate and rhythm, Normal peripheral perfusion and No edema. Respiratory: Lungs are clear to auscultation and breath sounds are equal. Chest wall: No tenderness. Musculoskeletal: Normal ROM. no tenderness. no swelling. no deformity. Gastrointestinal: Soft, Non distended and no tenderness to the anterior abd. no cva tenderness. , but no abdominal distention. , Tenderness: Negative, Guarding: Negative, Rebound: Negative and Trauma: Negative. Neurological: Alert and oriented to person, place, time, and situation and CN II-XII intact. Psychiatric: Cooperative and appropriate mood & affect. Medical Decision Making 41yo male here with left flank pain. no trauma. no fever. +n. no v/d. States he was dx with a left sided stone 2 weeks ago. Used a strainer and passed this stone in question. The pain recurred in the left flank. radiates to the LLQ and left testes. No dysuria. +urinary urgency. No chest pain. no cough. pmhx htn. pshx of umbilical hernia repair and small bowel resection from incarceration from umbilical hernia. ua with no infection, +blood. wbc _. bun/cr 12/1.36, up from baseline Cr of 1.0 (06/2015). lft's wnl. lipase 40. ct kidneys shows 4mm stone, as the largest of multiple stones at the left UVJ, +hydro neph and ureter. reeval: pt states pain unchanged after iv toradol. morphine given, states hassome itching but tolerates it with benadryl. benadryl added. spoke with Dr. Moseley of urology, abovereviewed, recommends transfer to [facility] for urology eval. Accepting Dr. is Dr. Ponce per transfer center. plan reviewed with pt. Since narcotic given, will transport via ground ems. spoke withpt, pt declined transport, prefers his take him. Knows to go directly to [facility] ER. Impression and Plan Diagnosis Pain Flank (Discharge, Emergency medicine, Medical) Ureterolithiasis (Discharge, Emergency medicine, Medical) Insufficiency Renal Acute (Discharge, Emergency medicine, Medical) Hydroureter (Discharge, Emergency medicine, Medical) Hydronephrosis (Discharge, Emergency medicine, Medical) Plan Disposition: Patient care transitioned to: Time: 02/01/2017 01:02:00, To [facility] for Urology eval. Accepting Dr. Ponce. (Urology team also consulted, Dr. Moseley). Electronically Signed By: EMILIO JIMENEZ DO On: 02/01/2017 01:07 AM Modified by and Electronically Signed by: EMILIO JIMENEZ DO On: 02/01/2017 12:42 AM Source: [facility] POWERCHART Document Id: [id number]} Meek Blair R.N. - 01/31/2017 11:06 PM CDT ED Primary Assessment Document Has Been Updated ED Primary Assessment Entered On: 01/31/2017 23:11 CDT Performed On: 01/31/2017 23:06 CDT by MEEK BLAIR RN Reason For Visit (As Of: 01/31/2017 23:11:52 CDT) Diagnoses(Active) Blood in urine Date: 01/31/2017 ; Diagnosis Type: Reason For Visit ; Confirmation: Complaint of ; Clinical Dx: Blood in urine ; Classification: Medical ; Clinical Service: Emergency medicine ; Code: PNED ; Probability: 0 ; Diagnosis Code: [id number] Triage Chief Complaint Description : 41 y/o male presents to ED d/t complaints of urinary frequency and bloody urine, Patient notes s/s have been on-going for several days with no inprovment noted, Information Given By : Patient Present in Room During Exam/Procedure : Alone Mode of Arrival ED : Private vehicle Track : Medical Languages : Eritrean Patient Informed of Triage Location : Emergency department Vital Signs Assessed : Yes GCS Assessed : Yes Treatments Prior to Arrival : None Is Patient Female and 13-50 no hysterectomy : No MEEK BLAIR RN - 01/31/2017 23:06 CDT Vital Signs Temperature Core : 36.4 DegC(Converted to: 97.5 DegF) (LOW) Peripheral Pulse Rate : 67 /min Respiratory Rate : 16 /min Systolic Blood Pressure : 153 mmHg (HI) Diastolic Blood Pressure : 102 mmHg (>HHI) NIBP Mean : 119 mmHg SpO2 : 99 % Oxygen Therapy : Room air MEEK BLAIR RN - 01/31/2017 23:06 CDT Emanuel Coma Eye Opening Response Emanuel : Spontaneously Best Verbal Response [place] : Oriented Best Motor Response [place] : Obeys simple commands Emanuel Coma Score : 15 MEEK BLAIR RN - 01/31/2017 23:06 CDT Pain Assessment Pain Symptoms : Yes MEEK BLAIR RN - 01/31/2017 23:06 CDT Pain Scale Pain Scale Verbal 0-10 : Open MEEK BLAIR RN - 01/31/2017 23:06 CDT Pain Pain Assessment Grid Pain 1 Location : Abdomen Laterality : Left Intensity : 4 Time Pattern : Acute Onset : Sudden Quality : Aching, Sharp Pain Radiation : No Aggravating Factors : Palpation Alleviating Factors : Medication MEEK BLAIR RN - 01/31/2017 23:06 CDT JONO DCP GENERIC CODE Tracking Acuity : 3 -Urgent Tracking Group : [facility] ED/ MEEK BLAIR RN - 01/31/2017 23:06 CDT Respiratory Airway : Patent Respirations : Unlabored Respiratory Pattern : Regular Oxygen Therapy : Room air MEEK BLAIR RN - 01/31/2017 23:06 CDT Cardiovascular Heart Rhythm : Regular Skin Color : Normal for ethnicity Skin Description : Dry Skin Temperature : Warm MEEK BLAIR RN - 01/31/2017 23:06 CDT Neurological Last Well Time Known : Not applicable Level of Consciousness : Alert Orientation : Oriented x 3 Characteristics of Speech : Appropriate for age Gait : Steady MEEK BLAIR RN - 01/31/2017 23:06 CDT ED Psychosocial Affect/Behavior : Calm, Cooperative, Appropriate Domestic Abuse Concerns : None Behavioral Health Screen/Safety Assmt : No MEEK BLAIR RN - 01/31/2017 23:06 CDT Gastrointestinal Nutrition ED : Adequate MEEK BLAIR RN - 01/31/2017 23:06 CDT Musculoskeletal Fall Prevention Education Provided : Yes Activity Andrew : Walks frequently MEEK BLAIR RN - 01/31/2017 23:06 CDT Social Habits Smoking Status : Unknown if ever smoke Tobacco 2A : Unknown EMEK BLAIR RN - 01/31/2017 23:06 CDT Source: [employer] Document Id: [id number] CDT!75 Meek Blair RZachN. - 01/31/2017 10:45 PM CDT ED Treatments and Procedures ED Treatments and Procedures Entered On: 02/01/2017 5:27 CDT Performed On: 01/31/2017 22:45 CDT by MEEK BLAIR RN Peripheral IV Peripheral IV Assess/Intervention Grid Peripheral IV #1 IV Activity : Start Number of Attempts : 1 Date of Insertion : 01/31/2017 CDT IV Site : Hand Laterality : Right Catheter Size : 20 Catheter Type : Over the needle Site Condition : No complications MEEK BLAIR RN - 02/01/2017 5:26 CDT Source: [employer] Document Id: [id number] CDT!12 documented in this encounter Miscellaneous Notes Miscellaneous - Meek Blair RFrancisco. - 02/01/2017 2:15 AM CDT Communication Note Communication Note Entered On: 02/01/2017 5:32 CDT Performed On: 02/01/2017 2:15 CDT by MEEK BLAIR RN Communication Assessment Communication Note : Patient to [facility] at this time per POV MEEK BLAIR RN - 02/01/2017 5:31 CDT Source: [employer] Document Id: [id number] CDT!3 Miscellaneous - Meek Blair R.N. - 02/01/2017 2:15 AM CDT Valuables/Belongings Valuables/Belongings Entered On: 02/01/2017 5:34 CDT Performed On: 02/01/2017 2:15 CDT by MEEK BLAIR RN Valuables/Belongings Belongings Sent Home With : Patient MEEK BLAIR RN - 02/01/2017 5:33 CDT Source: [employer] Document Id: [id number] CDT!3 Miscellaneous - Conversion, Historical Provider Ser - 02/01/2017 2:10 AM CDT Coding Summary-Paper Based CODING DATE: 02/10/2017 FINAL [facility] STATUS: * Discharged to Home or Self Care PAYOR: Medicaid ADMIT DX: R10.9 Unspecified abdominal pain REASON FOR VISIT DX: R10.9 Unspecified abdominal pain FINAL DX: PRINCIPAL: N20.1 Calculus of ureter SECONDARY: N28.9 Disorder of kidney and ureter, unspecified N13.4 Hydroureter I10 Essential (primary) hypertension N13.30 Unspecified hydronephrosis Z88.5 Allergy status to narcotic agent status Z88.8 Allergy status to other drugs, medicaments and biological substances status Z91.040 Latex allergy status Z91.048 Other nonmedicinal substance allergy status Z98.890 Other specified postprocedural states PROCEDURES DOCTOR NAME DATE NOTE: The code number assigned matches the documented diagnosis and / or procedure in the patient's chart. However, the narrative phrase printed from the coding software may appear abbreviated, or result in slightly different terminology. Coded By: BULL GOMEZ Date Saved: 02/10/2017 09:23 am Source: [facility] [place] [facility] Document Id: [id number] Miscellaneous - Meek Blair R.N. - 01/31/2017 10:29 PM CDT Facility Charge Ticket 2.0 11.0 DX Facility Charge Ticket 2.0 11.0 DX Entered On: 02/01/2017 5:34 CDT Performed On: 01/31/2017 22:29 CDT by MEEK BLAIR RN Facility Charge Ticket 2.0 11.0 DX ED Other Charges : Standard ED Encounter TVL Level Translated RTF : Blood in urine TVL:3 TVL Level for Facility Charge Ticket : Level 3 Arrival Mode Calc : 1 Mode of Arrival ED : Private vehicle [facility] Mode of Arrival Interpreted : Standard [facility] Process Management : None Order Management RTF : Laboratory Urinalysis with Culture if Indicated,01/31/17 22:40,EMILIO JIMENEZ DO Completed CBC (includes Auto Differential),01/31/17 23:25,EMILIO JIMENEZ DO Completed Comprehensive Metabolic Panel,01/31/17 23:25,EMILIO JIMENEZ DO Completed Lipase Level,01/31/17 23:25,EMILIO JIMENEZ DO Completed Automated Diff-5 Part,01/31/17 23:47,EMILIO JIMENEZ DO Completed CT / MRI / Ultrasound CT Stone Protocol,01/31/17 23:25,EMILIO JIMENEZ DO Ordered [facility]x Order Management : CT/MRI/Ultrasound, Lab tests 30 Minutes Critical Care : No Nursing Notes RTF : Nursing Notes ED Primary Assessment,01/31/17 23:06,MEEK BLAIR BOREMATIC OPERATOR Nurse Reassess,02/01/17 01:00,MEEK BLAIR BOREMATIC OPERATOR Nurse Reassess,10/07/17 23:45,MEEK BLAIR BOREMATIC OPERATOR Pain Assessment,02/01/17 02:15,MEEK BLAIR RN Communication Note,02/01/17 02:15,MEEK BLAIR RN Treatments Prior to Arrival : None MEEK BLAIR RN - 02/01/2017 5:34 CDT Source: [facility] POWERCHART Document Id: [id number] CDT!14 documented in this encounter Plan of Treatment Not on filedocumented as of this encounter Procedures Procedure Name Priority Date/Time Associated Comments Diagnosis AUTOMATED Routine 01/31/2017 11:42 Results for this DIFFERENTIAL, B PM CDT procedure ar e in the results section. CBC WITH DIFFERENTIAL, Routine 01/31/2017 11:42 R esults for this B PM CDT procedure are i n the results section. LIPASE, S/P Routine 01/31/2017 11:42 Results for this PM CDT procedure are i n the results section. COMPREHENSIVE Routine 01/31/2017 11:42 Results fo r this METABOLIC PANEL, S/P PM CDT procedu re are in the results section. CT ABDOMEN KIDNEY Routine 01/31/2017 11:27 Result s for this STONE WITHOUT IV PM CDT procedure a re in CONTRAST the results section. URINALYSIS, DIPSTICK Routine 01/31/2017 10:16 Res ults for this PM CDT procedure are i n the results section. documented in this encounter Results Lipase (01/31/2017 11:42 PM CDT) P athologist Signature Lipase, S 40 13 - 60 UL POWERCHART Comment: Reference ranges have not been established for patients that are less than 16 years of age Specimen (Source) Anatomical Collection Method Collection Time Re ceived Time Location / / Volume Laterality Blood 01/31/2017 11:42 PM CDT Emilio Jimeenz D.O. LAB BLOOD ADD-ON Performing Organization Address City/State/ZIP Code Phon e Number POWERCHART POWERCHART NA (ABNORMAL) CMP (Comprehensive Metabolic Panel) (01/31/2017 11:42 PM CDT) P athologist Signature Alanine 30 7 - 55 UL POWERCHART Amniotransferas e, LD Comment: Reference values have not been established for patients that are less than 12 months of age. Albumin, S 4.2 3.5 - 5.2 GDL POWERCHART Comment: Reference values have not been established for patients that are less than 12 months of age. Alkaline Phosphatase, S 80 40 - 130 UL VERONICA RCHART Aspartate Aminotransferase (AST), S 22 8 - 48 UL POWERCHART Comment: Reference values have not been established for patients that are less than 12 months of age. Sodium, S 142 135 - 145 MMOLL POWERCHART Comment: Reference values have not been established for patients that are less than 12 months of age. Potassium, S 3.9 3.6 - 5.2 MMOLL POWERCHART Comment: Reference values have not been established for patients that are less than 12 months of age. Chloride, S 104 98 - 107 MMOLL POWERCHART Comment: Reference values have not been established for patients that are less than 12 months of age. CO2 Total 25 22 - 29 MMOLL POWERCHART Comment: Reference values have not been established for patients that are less than 12 months of age. BUN (Blood Urea Nitrogen), S 12 6 - 24 MGDL POWERCHART Creatinine 1.36 (H) 0.67 - 1.17 MGDL POWERCHART Comment: Reference values have not been establish ed for patients that are <12 months of age. ESTIMATED GFR >60 mL/min/BSA Note: eGFR results will not be calculate d for patients <18 Calcium, Total, S 9.4 8.6 - 10.3 MGDL POWERC BRAGG Anion Gap 13 7 - 15 MMOLL POWERCHART Comment: Less than 2 years- No establish ed reference range. HXeGFR (MDRD) 58 (L) >=60 [id number] POWERCHART eGFR Black/ >60 >=60 [id number] POWERCHART Bilirubin, Total, S 0.3 <=1.2 MGDL POWERCHAR T Comment: No estab ref range for patients 84 hours to 1 month of age. Total Protein, S 7.2 6.4 - 8.3 GDL POWERCHAR T Comment: Reference values have not been established for patients that are less than 12 months of age. Glucose 97 70 - 139 MGDL POWERCHART Comment: ADA Diagnostic Criteria: -Fasting glucose > or = 126 mg/dL after an 8 hr fast OR -2-Hr glucose > or = to 200 mg/dL during a 75 gram oral load OR -Glucose casual (random) glucose > or = 200 mg/dL plus typical symptoms 3-Hour Glucose Tolerance Diagnostic Cut- offs (after an 8-hour fast): Fasting >=95 mg/dL 1 Hour >=180 mg/dL 2 Hour >=155 mg/dL 3 Hour >=140 mg/dL Reference values have not been establish ed for patients that are less than 12 months of age. Specimen (Source) Anatomical Collection Method Collection Time Re ceived Time Location / / Volume Laterality Blood 01/31/2017 11:42 PM CDT Emilio Jimenez D.O. LAB BLOOD ADD-ON Performing Organization Address City/State/ZIP Code Phon e Number POWERCHART POWERCHART NA Automated Differential (01/31/2017 11:42 PM CDT) P athologist Signature Absolute 4.10 1.70 - POWERCHART Neutrophils 7.00 109L Lymphocytes 2.23 0.90 - POWERCHART 2.90 X109L Monocytes 0.65 0.30 - POWERCHART 0.90 X109L Eosinophils 0.20 0.05 - POWERCHART 0.50 X109L Absolute 0.03 0.00 - POWERCHART Basophil 0.30 X109L Specimen Anatomical Collection Method Collection Time Receive d Time (Source) Location / / Volume Laterality Blood 01/31/2017 11:42 01/31/2017 PM CDT 11:42 PM CDT Emilio Jimenez D.O. LAB BLOOD ADD-ON Performing Organization Address City/State/ZIP Code Phon e Number POWERCHART POWERCHART NA CBC with Differential (01/31/2017 11:42 PM CDT) P athologist Signature Leukocytes 7.2 3.5 - 10.5 POWERCHART X109L Erythrocytes 4.90 4.32 - 5.72 POWERCHART U5062H Hemoglobin 15.1 13.5 - 17.5 POWERCHART GDL Hematocrit 44.4 38.8 - 50.0 POWERCHART MCV 90.6 81.0 - 95.0 POWERCHART FL HX RDW 12.2 11.8 - 15.6 POWERCHART Platelet Count 291 150 - 450 POWERCHART X109L Specimen (Source) Anatomical Collection Method Collection Time Re ceived Time Location / / Volume Laterality Blood 01/31/2017 11:42 PM CDT Emilio Jimenez D.O. LAB BLOOD ADD-ON Performing Organization Address City/State/ZIP Code Phon e Number POWERCHART POWERCHART NA CT Abdomen Kidney Stone without IV Contrast (01/31/2017 11:27 PM CDT) Anatomical Region Laterality Modality Abdomen, Pelvis Computed Tomography Specimen (Source) Anatomical Collection Method Collection Time Re ceived Time Location / / Volume Laterality 01/31/2017 11:27 PM CDT Addenda Addendum by Colin Barnett M.D. o n 01/31/2017 11:27 PM CDT RAD^^^AU CT Stone Protocol 01/31/2017 23:27:53 CT Stone Protocol Impressions 02/01/2017 8:54 AM CDT 1. ??Obstructing stones at the left uret erovesicular junction. Narrative 02/01/2017 8:54 AM CDT EXAM: CT Stone Protocol INDICATION: left flank pain, r/o hydro. AGE: 41 years-old TECHNIQUE: Stone protocol. No IV contras t. COMPARISON: None. ?? Preliminary Radiologist Report was gener ated by [employer] [place], [place]. FINDINGS: At the left ureterovesicular j unction, there are 3 obstructing stones. Largest stone measur es 3.2 mm with maximum Hounsfield units of 1261. There is moder ate left hydronephrosis and hydroureter. There is mild left perineph nirmala stranding. Left inferior pole calyx has 2 mm nonobstructing stone . Right inferior pole calyx has 3.5 mm nonobstructing stone. Normal appendix. Aortoiliac calcificatio ns. Mesh repair of umbilical hernia. Otherwise negative. Procedure Note Real Flores M.D. / Provider, Wendy Shaw - 02/18/2017 EXAM: CT Stone Protocol INDICATION: left flank pain, r/o hydro. AGE: 41 years-old TECHNIQUE: Stone protocol. No IV contras t. COMPARISON: None. Preliminary Radiologist Report was gener ated by [employer] [place], [place]. FINDINGS: At the left ureterovesicular j unction, there are 3 obstructing stones. Largest stone measur es 3.2 mm with maximum Hounsfield units of 1261. There is moder ate left hydronephrosis and hydroureter. There is mild left perineph nirmala stranding. Left inferior pole calyx has 2 mm nonobstructing stone . Right inferior pole calyx has 3.5 mm nonobstructing stone. Normal appendix. Aortoiliac calcificatio ns. Mesh repair of umbilical hernia. Otherwise negative. IMPRESSION: 1. Obstructing stones at the left ureter ovesicular junction. Fernanda Vanegas(R)(CT), Guilherme(R) IMG CT PROCEDURE S (ABNORMAL) Urinalysis no Reflex (01/31/2017 10:16 PM CDT) [facility] gist Method Time Signature HXUR WBC. None Seen None Seen POWERCHART HPF HXUR RBC. None Seen None Seen POWERCHART HPF HXUr Color Colorless Colorless POWERCHART Clarity Clear Clear POWERCHART Glucose Negative Negative POWERCHART MGDL Protein, Ur, Dip Negative Negative POWERCHART MGDL HXBILIRUBIN Negative Negative POWERCHART Urobilinogen <0.2 MGDL POWERCHART Comment: Reference Range Urobilinogen: 0.2-1.0 mg/dL pH, POCT, Urine 6.0 <5.0 POWERCHART Comment: Reference Range pH: 5.0-8.0 HXBLOOD Moderate (A) Negative POWERCHART Ketones, QL(U) Negative Negative MGDL POWERCHART HXNITRITE Negative Negative POWERCHART Leukocyte Esterase Negative Negative POWERCHART Specific [place], POCT, U 1.000 VERONICA RCHART Mucus Present (A) None Seen POWERCHART Specimen (Source) Anatomical Collection Method Collection Time Re ceived Time Location / / Volume Laterality Urine, First 01/31/2017 10:16 Voided PM CDT Emilio Jimenez D.O. LAB URINE ORDERABLES Performing Organization Address City/State/ZIP Code Phon e Number POWERCHART POWERCHART NA documented in this encounter Visit Diagnoses Not on filedocumented in this encounter
--- OUTSIDE RECORDS SUMMARY | 2022-02-03 00:36 | XMS_ITS | Encounter Summary ---
:1975 Author Organization [facility] Address [address] [place] [id number] Care Team Providers Name Role Phone Unavailable Primary Care Provider Unavailable Encounter Details Date Type Department Care Team Description 01/05/2013 Hospital Encounter HX NO MAPPING Waldo Ríos M.D. [address] [place] [address] [phone] (Wo rk) Social History Tobacco Use Types Packs/Day Years Used Date Smoking Tobacco: Never Assessed Sex Assigned at Date Recorded Not on file documented as of this encounter Plan of Treatment Not on filedocumented as of this encounter Visit Diagnoses Not on filedocumented in this encounter
--- NOTE | 2022-02-03 00:48 | ED_ITS ---
HPI - General Adult General Chief complaint: Chest Pain Stated complaint: Chest Pain Time Seen by Provider: 02/02/22 23:57 Source: patient and family Mode of arrival: ambulatory Limitations: no limitations History of Present Illness HPI narrative: 46-year-old male presents the emergency department with upper respiratory infection for the past 2 days progressing to cough productive of green sputum for the past 1 day not accompanied by fever. He reports that he tends to get these infections every January and tends to need antibiotics for them to resolve. He does have a nearly 30 pack-year smoking history but states that he has never been tested for COPD. He is not on maintenance inhalers. He denies any dyspnea, there is no chest pain. No cardiac symptoms, palpitations. He has no history of significant heart issues other than some mild hypertension which is well controlled on oral medications. His main concern for coming in is that he leaves on a flight in 6 hours and is worried about getting sick in 4 which would be out of network for him. 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 He has previously been given an inhaler during the spells but no longer has access to this. He notes no fever, no GI symptoms, no other systemic symptoms. He has not tried taking any particular medications or other interventions to help with his symptoms. No other acute concerns today. Past medical history is most notable for hypertension, he has also had an umbilical hernia repair. His only home medication is propranolol which he takes 80 mg in the morning and 40 mg at night. No recent pertinent travel or known exposures to illness. Related Data Home Medications Medication Instructions Recorded Confirmed propranolol 40 mg tablet 40 mg PO BID 02/03/22 02/03/22 Previous Rx's Medication Instructions Recorded albuterol sulfate 90 mcg/actuation 2 puff inhalation 6XD PRN 02/03/22 aerosol inhaler shortness of breath or wheezing #8.5 grams Allergies Allergy/AdvReac Type Severity Reaction Status Date / Time No Known Drug Allergies Allergy Verified 02/03/22 00:07 Review of Systems Narrative: Notable for the generalized, HEENT and respiratory symptoms as above. Denies skin, cardiovascular, GI changes. PFSH PFSH Medical History HTN (hypertension) Surgical History No significant past surgical history Social History Smoking Status: Former smoker What tobacco products do you use: cigarettes Smoking quit date/years: <= 15 years ago Second hand tobacco smoke exposure: No How often do you have a drink containing alcohol: never How often do you have six or more drinks on one occasion: Never AUDIT-C Alcohol total score: 0 Non-prescribed substance use: denies use Exam Const: Vital Signs, click to edit/add: Vital Signs - 24 hr 02/03/22 00:04 Temperature 97.9 F Pulse Rate [Right Pulse Oximeter] 74 Respiratory Rate 18 Blood Pressure [Le ft Upper Arm] 123/82 Pulse Oximetry 99 Oxygen Delivery Me thod Room Air Documenting provider has reviewed patient's vital signs: yes Common normals: no apparent distress General appearance: cooperative HENMT: Common normals: normocephalic and TM's normal bilaterally Head and scalp: normocephalic Tympanic membrane: TM's normal bilaterally Mouth: oral and palatal mucosa normal Throat: posterior oropharynx normal Eye: Common normals: conjunctivae normal and no scleral icterus Conjunctiva: conjunctiva(e) normal Neck & C-Spine: Common normals: full ROM and no lymphadenopathy Resp: Common normals: normal respiratory effort Other: Very faint end-expiratory wheeze and whistle at right upper anterior chest only. Green sputum noted an emesis bag. Mild coarse upper airway sounds did clear with cough. Cardio: Common normals: regular rate, regular rhythm, S1 normal heart sound, S2 normal heart sound and peripheral pulses 2+ throughout Rate: regular rate Rhythm: regular rhythm Heart sounds: S1 normal and S2 normal Peripheral pulses: pulses 2+ throughout Neuro: Speech: speech normal Motor exam: no tremor noted and no movement abnormalities noted Psych: Attitude: calm and engaged Insight: insight good Skin: Common normals: no rashes or lesions noted General skin exam: no rashes or lesions noted Course Vital Signs Vital signs: Initial Vital Signs Respiratory Effort Spontaneous 02/02/22 23:52 Respiratory Depth Normal 02/02/22 23:52 Respiratory Pattern 02/02/22 23:52 Vital Signs Temperature 97.9 F 02/03/22 00:04 Pulse Rate 74 02/03/22 00:04 Respiratory Rate 18 02/03/22 00:04 Blood Pressure 123/82 02/03/22 00:04 Pulse Oximetry 99 02/03/22 00:04 Oxygen Delivery Method 02/03/22 00:04 Temperature 97.9 F 02/03/22 00:04 Pulse Rate 74 02/03/22 00:04 Respiratory Rate 18 02/03/22 00:04 Blood Pressure 123/82 02/03/22 00:04 Pulse Oximetry 99 02/03/22 00:04 Oxygen Delivery Method 02/03/22 00:04 Medical Decision Making MDM Narrative Medical decision making narrative: Plan of care discussed with patient. Differential diagnosis including COPD, bronchitis, upper respiratory infection, pneumonia, cardiac etiology. Patient a grees that a cardiac workup is not warranted and I agree. We discussed plan of care and follow up with primary care provider for some spirometry and COPD testing based on his story. He was agreeable to this as well. no contraindications to travel Later today. Discharge Plan Discharge Clinical Impression: COPD (chronic obstructive pulmonary disease) with acute bronchitis Patient Disposition: Home w/ Parent or Adult Condition: Stable Instructions: Acute Bronchitis (ED) Additional Instructions: begin the azithromycin right away. Bring the prednisone with you tomorrow and start only if your symptoms are not improving after 24 hours. I have sent the albuterol to your pharmacy, you may transfer this down to [place] if needed. If any severe shortness of breath develops, seek local medical care. I would encourage you to have some spirometry testing at your next physical with her [facility] provider, you may benefit from long-term COPD treatment. For most, adding this on to an already full agenda is hard to accomplish and typically making an appointment to specifically discuss this is often better. Activity Level: No Restrictions Discharge Diet: Regular Prescriptions: New albuterol sulfate 90 mcg/actuation HFA aerosol inhaler 2 puff inhalation 6XD PRN (Reason: shortness of breath or wheezing) Qty: 8.5 0RF No Action propranolol 40 mg tablet 40 mg PO BID Label Comments: TAKE ONE TABLET BY MOUTH TWICE DAILY Stand Alone Forms: [employer] Info Instructions
[2022-02-03 01:03] VITALS: BP 118/79; PULSE 69; RESP 18; TEMP 36.6; O2SAT 99
[2022-02-03 01:04] VITALS: BP 118/79; PULSE 69; RESP 18; TEMP 36.6
== END 2022-02-03 01:04 | disposition home or self-care (01) ==
PROVIDERS: Emergency Provider Family Medicine; PCP Physician Assistant Medical
DX: J44.9 Chronic obstructive pulmonary disease, unspecified (principal); J40 Bronchitis, not specified as acute or chronic
CPT/HCPCS: 99282; 99283; 99284

== ENCOUNTER 2024-01-03 10:48 | Emergency (ER) | payer OTHER, SELFPAY ==
[2024-01-03 10:53] VITALS: BP 183/102; PULSE 79; RESP 16; TEMP 36.3; O2SAT 100; BMI 53.5
--- NOTE | 2024-01-03 11:17 | CRLHL7_ITS ---
For Patients: As a result of the Century Cures Act, medical imaging exams and procedure reports are released immediately into your electronic medical record. You may view this report before your referring provider. If you have questions, please contact your health care provider. INDICATION: Pain right lower abdomen and flank. TECHNIQUE: CT abdomen and pelvis acquired with 134 cc of Isovue 370 IV contrast. COMPARISON: None available. FINDINGS: Lower chest: Unremarkable. Liver: Fatty change. No focal lesion. Spleen: Unremarkable. Pancreas: Unremarkable. Gallbladder and bile ducts: No calcified stones or biliary ductal dilatation. Kidneys: Minimal right hydroureteronephrosis extending to the ureterovesicular junction. There is also mild right urothelial enhancement. Nonobstructing left renal stones measure up to 4 mm. No left hydronephrosis. Adrenal glands: Unremarkable. GI tract: No obstruction or focal inflammatory changes. Normal appendix. No free air or free fluid. Lymph nodes: No pathologic lymphadenopathy. Vascular structures: Mild atherosclerotic disease. No abdominal aortic aneurysm. Pelvic Organs: Omalley catheter appears appropriately positioned. There is a 7 mm stone in the bladder adjacent to the Omalley catheter balloon on axial image 124 of series 2. Bones: No acute or suspicious osseous abnormality. Mild degenerative changes of the spine and pelvis. IMPRESSION: 1. Minimal right hydroureteronephrosis extending to the ureterovesicular junction. No obstructing ureteral stone. Mild right urothelial enhancement may be infectious in the appropriate clinical setting. 2. Right bladder stone adjacent to the Omalley catheter balloon measures 7 mm. 3. Nonobstructing left renal stones measure up to 4 mm. 4. Fatty change of the liver. Dictated by Trey Malone MD @ 01/03/2024 12:59:35 PM Please note that all CT scans at this facility use dose modulation, iterative reconstruction, and/or weight-based dosing when appropriate to reduce radiation dose to as low as reasonably achievable. Dictated by: Trey Malone MD @ 01/03/2024 12:59:56 (Electronically Signed)
[2024-01-03] MEDS: KETOROLAC 15 MG/ML inj IVP (11:20)
[2024-01-03] MEDS: HYDROmorphone 0.5 mg/0.5 ml inj IVP ×3 (11:26→13:52)
--- NOTE | 2024-01-03 11:40 | ED.ABDPAIN ---
HPI - Abdominal Pain General Date Seen: 01/03/24 Chief Complaint: Abdominal Pain Stated Complaint: UTI, kidney stone Time Seen by Provider: 01/03/24 10:54 Source: patient Mode of arrival: ambulatory Limitations: no limitations and physical limitation History of Present Illness HPI narrative: Patient is a 48-year-old male with a history of multiple kidney stones in the past presenting to emergency department for right flank, right lower quadrant and penile pain. He states for the past few weeks he is having increased urgency with urination which is commonly a sign of kidney stones with him. States he has had these for years and has never needed surgery for them and is always able to pass them on his own. He states but 2 days ago he had sudden penile pain and worsening flank and abdominal pain that started when he was trying to urinate. Since then he has only been able to dribble small amounts of urine. He has not had issues like this before. He states he feels like there is a kidney stone right at the tip of his penis within the urethra. He has been drinking lots of fluids and taking his Flomax at home without any improvement. Denies fevers, chills, headache, lightheadedness, chest pain, shortness of breath, diarrhea, constipation. Related Data Home Medications ?Medication ?Instructions ?Recorded ?Confirmed propranolol 40 mg tablet 40 mg PO BID 02/03/22 01/03/24 cyclobenzaprine 10 mg tablet 10 mg PO QPM 01/03/24 01/03/24 fluticasone 250 mcg-salmeterol 50 1 ea inhalation BID 01/03/24 01/03/24 mcg/dose blistr powdr for inhalation lisinopril 20 mg tablet 20 mg PO DAILY 01/03/24 01/03/24 tamsulosin 0.4 mg capsule (Flomax) 0.4 mg PO QDAY 01/03/24 01/03/24 Previous Rx's ?Medication ?Instructions ?Recorded albuterol sulfate 90 mcg/actuation 2 puff inhalation 6XD PRN 02/03/22 aerosol inhaler shortness of breath or wheezing #8.5 grams oxycodone 5 mg tablet 5 mg PO Q6H PRN pain #6 tabs 01/03/24 Allergies Allergy/AdvReac Type Severity Reaction Status Date / Time diphtheria toxoid,adsorbed Allergy Verified 01/03/24 11:37 morphine Allergy Verified 01/03/24 11:37 sumatriptan [From Imitrex] Allergy Verified 01/03/24 11:37 Review of Systems Status of ROS Reports: 10 or more systems reviewed and unremarkable except as noted in History and below [facility] Medical History HTN (hypertension) ?I10 - Essential (primary) hypertension (ICD-10) Surgical History No significant past surgical history Social History Smoking Status: Former smoker What tobacco products do you use: cigarettes Smoking quit date/years: <= 15 years ago Do you use any of these nicotine containing products: None Second hand tobacco smoke exposure: No How often do you have a drink containing alcohol: never How often do you have six or more drinks on one occasion: Never AUDIT-C Alcohol total score: 0 Non-prescribed substance use: denies use service: No Exam Narrative: Exam Narrative: Physical exam performed after Omalley was already placed by staff and he was having improvement in symptoms Const: Well-nourished, Well-developed, in moderate distress Eyes: PERRL, no conjunctival injection, and symmetrical lids HENT: Atraumatic external nose and ears. Moist mucous membranes. Neck: Symmetric, trachea midline, No thyromegaly. CVS: RRR, No murmurs or gallops. Peripheral pulses 2+ and equal in all extremities RESP: Unlabored respiratory effort. Clear to auscultation bilaterally. GI: Mild suprapubic tenderness, Nondistended, No rebound or guarding. MSK:Extremities w/o deformity, Normal Active ROM Skin: Warm, Dry. No rashes or lesions. Neuro: Normal Muscle tone, No focal neurological deficits. Psych: Awake, Alert, & Oriented x3. Appropriate mood and affect. Const: Vital Signs, click to edit/add: Vital Signs - 24 hr 01/03/24 10:53 01/03/24 12:00 Temperature 97.3 F L Pulse Rate [Pulse Oximeter] 79 75 Respiratory Rate 16 16 Blood Pressure [Ri ght Forearm] 183/102 H 139/93 H Pulse Oximetry 100 100 Oxygen Delivery Me thod Room Air Room Air Course Vital Signs Vital signs: Initial Vital Signs Temperature 97.3 F L 01/03/24 10:53 Temperature Source Temporal Artery Scan 01/03/24 10:53 Pulse Rate 79 01/03/24 10:53 Pulse Rhythm Regular 01/03/24 10:53 Respiratory Rate 16 01/03/24 10:53 Blood Pressure 183/102 H 01/03/24 10:53 Blood Pressure Mean 129 H 01/03/24 10:53 Blood Pressure Position Sitting 01/03/24 10:53 Pulse Oximetry 100 01/03/24 10:53 Oxygen Delivery Method Room Air 01/03/24 10:53 Vital Signs Temperature 97.3 F L 01/03/24 10:53 Pulse Rate 79 01/03/24 10:53 Respiratory Rate 16 01/03/24 10:53 Blood Pressure 183/102 H 01/03/24 10:53 Pulse Oximetry 100 01/03/24 10:53 Oxygen Delivery Method Room Air 01/03/24 10:53 Temperature 97.3 F L 01/03/24 10:53 Pulse Rate 75 01/03/24 12:00 Respiratory Rate 16 01/03/24 12:00 Blood Pressure 139/93 H 01/03/24 12:00 Pulse Oximetry 100 01/03/24 12:00 Oxygen Delivery Method Room Air 01/03/24 12:00 Medications Administered Medications: Discontinued Medications Generic Name Dose Route Start Last Admin Trade Name Freq PRN Reason Stop Dose Admin Hydromorphone HCl 0.5 mg 01/03/24 11:20 01/03/24 11:26 Hydromorphone 0.5 Mg/0.5 Ml Inj IVP 01/03/24 11:21 0.5 mg ONCE ONE Administration Hydromorphone HCl 0.5 mg 01/03/24 12:10 01/03/24 12:16 Hydromorphone 0.5 Mg/0.5 Ml Inj IVP 01/03/24 12:11 0.5 mg ONCE ONE Administration Hydromorphone HCl 0.5 mg 01/03/24 13:47 01/03/24 13:52 Hydromorphone 0.5 Mg/0.5 Ml Inj IVP 01/03/24 13:48 0.5 mg ONCE ONE Administration Lactated Ringer's 1,000 mls @ 1,000 mls/hr 01/03/24 12:24 01/03/24 12:32 Lactated Ringers 1000 Ml IV 01/03/24 13:23 1,000 mls/hr .Q1H ONE Administration Ketorolac Tromethamine 15 mg 01/03/24 12:24 01/03/24 11:20 Ketorolac 15 Mg/Ml Inj IVP 01/03/24 12:25 15 mg ONCE ONE Administration Oxycodone HCl 5 mg 01/03/24 13:32 01/03/24 13:52 Oxycodone 5 Mg Tablet PO 01/03/24 13:33 5 mg ONCE ONE Administration MDM - Abdominal Pain MDM Narrative Medical decision making narrative: Patient is a 48-year-old male presenting for abdominal pain and penile pain. There is concerned he could have had a kidney stone blocking but the time I arrived the Omalley was placed and a large amount of urine has drained. The time arrived has been about a L. will give him Dilaudid for pain along with Toradol. Will do a CT scan of the abdomen pelvis with contrast to make sure there are no other abnormalities. Urinalysis also ordered lung CBC, CMP, magnesium. 1 L of fluids ordered. Lab work returned showing no concerning abnormalities. Creatinine is normal. Blood in the urine but no signs of a UTI. Electrolytes within normal limits. Pain did initially improve but did require another dose of Dilaudid. CT scan returned showing a bladder stone. This is likely was causing his symptoms. There is also some right-sided hydronephrosis but this is more likely to be secondary to the urethral obstruction. I did speak to [facility] does set up an outpatient appointment. They are agreeable to this plan. The PA on-call did recommend leaving the Omalley in and they will call him tomorrow set up a voiding trial. Patient still is in pain at this time in oxycodone was given. Will give another dose of Dilaudid before discharge. He is agreeable to discharge in does want to try pain management at home but will return if he cannot handle the pain. I sent 12 tabs of oxycodone through [facility] but will give him another 6 to chart picker the a his pharmacy if he needs more. I did tell and he can take 5-10 mg at a time as needed for pain. He should have follow-up with Urology within the next day or 2 Lab Data Labs: Lab Results 01/03/24 01/03/24 01/03/24 Range/Units 11:30 11:45 12:08 WBC 5.66 (4.50-11.00) K/uL RBC 4.87 (4.30-5.90) m/uL Hgb 14.7 (13.5-17.5) gm/dL Hct 45.0 (37.0-53.0) % MCV 92 (80-100) fL MCH 30 (26-34) pg MCHC 33 (32-36) gm/dL RDW Coeff of [place] 12.2 (11.5-15.5) % Plt Count 285 (140-440) K/uL Neut % (Auto) 57.3 (42.0-72.0) % Lymph % (Auto) 28.3 (20-44) % [place] % (Auto) 9.9 (0.0-11.0) % Eos % (Auto) 2.7 (0.0-7.0) % Baso % (Auto) 0.9 (0.0-3.0) % Neut # (Auto) 3.25 (1.7-7.0) K/uL Lymph # (Auto) 1.60 (0.90-2.90) K/uL [place] # (Auto) 0.60 (0.00-0.90) K/UL Eos # (Auto) 0.15 (0.00-0.50) K/uL Baso # (Auto) 0.05 (0.00-0.30) K/uL Abs Immat Gran (auto) 0.05 (0.00-0.30) K/uL Imm/Tot Granulo (auto) 0.9 % Sodium 135 (135-149) mmol/L Potassium 4.1 (3.6-5.1) mmol/L Chloride 104 (96-114) mmol/L Carbon Dioxide 24 (20-32) mmol/L Anion Gap 7 (7-15) mEq/L BUN 14 (5-24) mg/dL Creatinine 1.1 (0.5-1.5) mg/dL Estimated Creat Clear 59.34 Estimated GFR 84 ml/min Glucose 121 H (60-115) mg/dL Calcium 8.8 (8.4-10.6) mg/dL Magnesium 2.1 (1.5-2.6) mg/dL Total Bilirubin 0.5 (0.1-1.5) mg/dL AST 26 (12-35) U/L ALT 36 (4-50) U/L Alkaline Phosphatase 82 (40-150) U/L Total Protein 7.2 (6.0-8.3) g/dL Albumin 4.3 (3.3-5.0) g/dL Urine Color Dark yellow (Yellow) Urine Appearance Clear (Clear) Urine pH 5.5 (5.0-8.5) Ur Specific Bruno 1.020 (1.000-1.030) Urine Protein Negative (Negative) Urine Glucose (UA) Trace A (Negative) Urine Ketones Negative (Negative) Urine Blood 3+ A (Negative) Urine Nitrite Negative (Negative) Urine Bilirubin Negative (Negative) Urine Urobilinogen 0.2 (0.2-1.0) Ur Leukocyte Esterase Negative (Negative) Urine RBC 25-50 A (0-2) Urine WBC 0-2 (0-5) Ur Squamous Epith Cells None (None-Few) Urine Bacteria Few A (None) POC Creatinine 1.2 (0.6-1.3) mg/dl Imaging Data CT scan abdomen and pelvis: Attestation: I have reviewed the pertinent imaging results. Radiologist's impression: 1. Minimal right hydroureteronephrosis extending to the ureterovesicular junction. No obstructing ureteral stone. Mild right urothelial enhancement may be infectious in the appropriate clinical setting. 2. Right bladder stone adjacent to the Omalley catheter balloon measures 7 mm. 3. Nonobstructing left renal stones measure up to 4 mm. 4. Fatty change of the liver. Dictated by Trey Malone MD @ 01/03/2024 12:59:35 PM Please note that all CT scans at this facility use dose modulation, iterative reconstruction, and/or weight-based dosing when appropriate to reduce radiation dose to as low as reasonably achievable. Dictated by: Trey Malone MD @ 01/03/2024 12:59:56 Discharge Plan Discharge Clinical Impression: Calculus of kidney Patient Disposition: Home, Self-Care Condition: Improved Instructions: Hydronephrosis (ED) Additional Instructions: Continue take care Toradol and oxycodone as needed for pain. [facility] should be calling You tomorrow to set up an outpatient for doing trial. You can call them on Thursday morning if you have not heard from them yet at [phone]. Return to emergency department for new or worsening symptoms. Oxycodone prescribed through [facility]. Twelve tabs were prescribed [address] way. You can take 5-10 mg and if you do need more I prescribed another 6 through your pharmacy Prescriptions: New oxycodone 5 mg tablet 5 mg PO Q6H PRN (Reason: pain) Qty: 6 0RF No Action lisinopril 20 mg tablet 20 mg PO DAILY fluticasone propion-salmeterol 250-50 mcg/dose blister with device 1 ea inhalation BID cyclobenzaprine 10 mg tablet 10 mg PO QPM tamsulosin [Flomax] 0.4 mg capsule 0.4 mg PO QDAY propranolol 40 mg tablet 40 mg PO BID Patient Comments: TAKE ONE TABLET BY MOUTH TWICE DAILY albuterol sulfate 90 mcg/actuation HFA aerosol inhaler 2 puff inhalation 6XD PRN (Reason: shortness of breath or wheezing) Qty: 8.5 0RF Follow Up/Referrals: Lo Parker PA-C [Primary Care Provider] - Stand Alone Forms: Smart[employer] Info Instructions
[2024-01-03 11:50] LABS: Basophils Absolute Auto 0.05 K/uL (0.00-0.30); Basophils Percent Auto 0.9 % (0.0-3.0); Eosinophils Absolute Auto 0.15 K/uL (0.00-0.50); Eosinophils Percent Auto 2.7 % (0.0-7.0); Hemoglobin* 14.7 gm/dL (13.5-17.5); Immature Granulocytes Abs Auto 0.05 K/uL (0.00-0.30); Immature Granulocytes Pct Auto 0.9 %; Lymphocytes Percent Auto 28.3 % (20-44); Mean Corpuscular HGB Conc 33 gm/dL (32-36); Mean Corpuscular Hemoglobin 30 pg (26-34); Mean Corpuscular Volume 92 fL (80-100); Monocytes Percent Auto 9.9 % (0.0-11.0); Neutrophils Absolute Auto 3.25 K/uL (1.7-7.0); Neutrophils Percent Auto 57.3 % (42.0-72.0); Platelet Count* 285 K/uL (140-440); RDW Coefficient of Variation % 12.2 % (11.5-15.5); Red Blood Count 4.87 m/uL (4.30-5.90); White Blood Count* 5.66 K/uL (4.50-11.00)
[2024-01-03 12:00] VITALS: BP 139/93; PULSE 75; RESP 16; O2SAT 100
[2024-01-03 12:09] LABS: Slide Review Reflex No
[2024-01-03 12:09] LABS: Creatinine, Point-of-Care* 1.2 mg/dl (0.6-1.3)
[2024-01-03 12:15] LABS: Albumin* 4.3 g/dL (3.3-5.0); Chloride* 104 mmol/L (96-114); Sodium* 135 mmol/L (135-149)
[2024-01-03 12:16] LABS: Potassium* 4.1 mmol/L (3.6-5.1)
[2024-01-03 12:18] LABS: Alanine Aminotransferase* 36 U/L (4-50); Alkaline Phosphatase* 82 U/L (40-150); Anion Gap 7 mEq/L (7-15); Aspartate Amino Transferase* 26 U/L (12-35); Bilirubin Total* 0.5 mg/dL (0.1-1.5); Blood Urea Nitrogen* 14 mg/dL (5-24); Carbon Dioxide* 24 mmol/L (20-32); Creatinine* 1.1 mg/dL (0.5-1.5); Est. Creatinine Clearance* 59.34; Estimated Glomerular Filt Rate 84 ml/min; Glucose* 121 mg/dL (60-115); Total Protein* 7.2 g/dL (6.0-8.3)
[2024-01-03 12:19] LABS: Calcium* 8.8 mg/dL (8.4-10.6); Magnesium* 2.1 mg/dL (1.5-2.6)
[2024-01-03] MEDS: LACTATED RINGERS 1000 ML 1,000 ML IV (12:32)
--- OUTSIDE RECORDS SUMMARY | 2024-01-03 12:43 | XMS_ITS | Clinical Summary ---
Author Organization [facility] Address [place], [place] [address] Care Team Providers Care Foundry Metallurgist Name Role Phone Lo Parker Primary Care Provider Allergies Active Allergy Reactions Criticality Noted Date Comments Codeine Rash 10/10/2011 Other reaction(s): Other (see comments) CODEINE SULFATE Sumatriptan Other - Describe In Comment Field 09/10/2013 Vessels in head pop Latex Other - Describe In Comment Field 12/24/2015 Rash and blisters Polyethylene Glycol 3350 Vomiting 07/15/2023 Morphine Itching 09/10/2013 Unlisted Allergen (Include Detail In Comments) Anaphylaxis High 12/24/2015 White vinegar (This includes ketchup, man ect.) Oxycodone Other - Describe In Comment Field 12/24/2015 Rash and blisters Medications Medication Sig Dispensed Refills Start Date End Date Status tamsulosin (FLOMAX) 0.4 mg capsuleIndication s:History of kidney stones Take 1 Capsule (0.4 mg) by mouth once daily after a meal. 15 Capsule 2 2 Active Additional Information Patient not taking.Reported on 11/30/2023 cyclobenzaprine (FLEXERIL) 10 mg tabletIndications :Migraine syndrome TAKE ONE TABLET BY MOUTH DAILY NEEDED 60 Tablet 3 Active albuterol HFA (PRO-AIR; VENTOLIN; PROVENTIL) 90 mcg/actuation inhalerIndication s:Acute bronchitis, unspecified organism Inhale 1-2 Puffs by mouth every 4 hours if needed for Shortness Of Breath or Wheezing. 8.5 g 4 Active fluticasone propion-salmetero L (Advair Diskus) 250-50 mcg/Dose diskus inhalerIndication s:COPD with chronic bronchitis (HC) Inhale 1 Puff by mouth two times daily. 180 Each 4 Active predniSONE (DELTASONE) 50 mg tab tabletIndications :Acute right-sided low back pain with right-sided sciatica Take 1 tablet with morning meal x 7 days 7 Tablet 4 Active Additional Information Patient not taking.Reported on 11/30/2023 Metaxalone (SKELAXIN) 800 mg tabletIndications :Acute right-sided low back pain with right-sided sciatica Take 1 Tablet (800 mg) by mouth three times daily. 30 Tablet 4 Active Additional Information Patient not taking.Reported on 11/30/2023 HYDROcodone-aceta minophen (5-325 mg/tablet)Indicat ions:Acute right-sided low back pain with right-sided sciatica Take 1 Tablet by mouth 2 times daily if needed for Pain. Max acetaminophen dose: 4000 mg in 24 hrs. 10 Tablet 4 Active Additional Information Patient not taking.Reported on 11/30/2023 propranoloL (INDERAL) 40 mg tabletIndications :Hypertension, unspecified type Take 2 tablets by mouth in the morning and 1 tablet in the evening 270 Tablet 4 Active lisinopriL (PRINIVIL; ZESTRIL) 20 mg tabletIndications :HTN (hypertension) Take 1 Tablet (20 mg) by mouth once daily. 90 Tablet 4 Active fluocinonide 0.05 % creamIndications: Dry skin Apply topically to affected area(s) two times daily. Do not use on one location for more than14 days. Do not apply to the face, genitals or armpit. 60 g 4 Active betamethasone dipropionate 0.05 % creamIndications: Dry skin Apply topically to affected area(s) once daily. 45 g 4 Active fluocinonide 0.05 % creamIndications: Dry skin Apply topically to affected area(s) two times daily. Do not use on one location >14 days. Do not apply to the face, genitals or armpit. 60 g 4 12/29/19 24 Discontinued Active Problems Problem Noted Date Diagnosed Date Kidney stone 02/02/2017 Chest pain 12/25/2015 Near syncope 12/25/2015 Resolved Problems Problem Noted Date Diagnosed Date Resolved Date History of kidney stones 08/13/2021 Encounters Date Type Department Care Team Description 12/25/2023 Refill [facility] [address] [place] [address] Lo Parker PA Refill Request (Fluocinonide) 11/30/2023 8:20 AM CDT Procedure Only [facility] [address] [place] [address] Bobo Galo MD Musculoskeletal Problem (Follow-up Bilater... 11/30/2023 Travel 11/10/2023 Refill [facility] [address] [place] [address] Lo Parker PA Refill Request (Lisinopril) 11/04/2023 Refill [facility] [address] [place] [address] Lo Parker PA Refill Request (Propranolol) 10/19/2023 Refill [facility] [address] [place] [address] Lo Parker PA Refill Request (Fluocinonide) 10/13/2023 8:45 AM CDT Office Visit [address] [address] Rian Escobar PA Back Pain (Back pain started around 10/04 no known injury.) 10/13/2023 Travel 10/11/2023 Travel from Last 3 Months Immunizations Name Administration Dates Next Due COVID-19 vaccine ([employer] 30mcg/0.3mL) JULISA WALSH 10/12/2020,09/20/2020 Hepatitis B (Adult) 12/14/2015,08/02/2015,2015 Influenza, IIV4 02/06/2023,,03/05/2021,2019,02/12/2019,01/26/2018 Influenza, IIV4 (=>6mos) MDV 02/02/2017,01/10/20 16 Td, Preservative Free (age > = 7 Years) 10/25/2009 Tdap 01/26/2018 Family History Medical History Relation Name Comments Hypertension Brother Cancer-colon Father Heart Disease Father Believes had M I in 40s, of CHF in his early 60s. Stomach cancer Father Heart Disease Maternal Grandfather Heart Disease Maternal Grandmother Stomach cancer Mother Heart Disease Paternal Grandfather Heart Disease Paternal Grandmother Relation Name Status Comments Brother Father Maternal Grandfather Maternal Grandmother Mother Paternal Grandfather Paternal Grandmother Social History Tobacco Use Types Packs/Day Years Used Date Smoking Tobacco: Former Cigarettes 1 24 0 06/10/1991 - 06/10/2015 Smokeless Tobacco: Former Quit: 05/28/2015 Tobacco Cessation:Counseling Given: Yes Alcohol Use Standard Drinks/Week Comments No 0 (1 standard drink = 0.6 oz pur e alcohol) PHQ-2 Answer Date Recorded PHQ-2 TOTAL SCORE 0 03/23/2023 Social Connections Answer Date Recorded Frequency of Communication with Friends and Fami ly 0 03/23/2023 Financial Resource Strain Answer Date R ecorded Difficulty of Paying Living Expenses 3 03/23/2023 Difficulty of Paying Living Expenses Not on file 03/23/2023 Food Insecurity Answer Date Recorded Worried About Running Out of Food in the Last Ye ar 1 03/23/2023 Transportation Needs Answer Date Record ed Lack of Transportation (Medical) 1 03/23/2023 Housing Stability Answer Date Recorded Unable to Pay for Housing in the Last Year 1 03/23/2023 Sex and Gender Information Value Date Recorded Sex Assigned at Not on file Gender Identity Male 03/31/2020 9:44 PM 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 Sexual Orientation Not on file Obstetrics History Last Filed Vital Signs Vital Sign Reading Time Taken Comments Blood Pressure 147/86 11/30/2023 8:21 AM CDT Pulse 56 11/30/2023 8:21 AM CDT Temperature 36.9 ??C (98.4 ??F) 08/19/2023 8:48 AM CD T Respiratory Rate 18 12/25/2015 10:4 5 AM CDT Oxygen Saturation 97% 11/30/2023 8:21 AM CDT Inhaled Oxygen Concentration - - Weight 109.3 kg (240 lb 14.4 oz) 11/30/2023 8:21 AM CDT Height 174.4 cm (5' 8.66) 11/30/2023 8:21 AM CD T Body Mass Index 35.93 11/30/2023 8:21 AM CDT Plan of Treatment Health Maintenance Due Date Last Done Comments Pneumococcal series for age 6-64 (1 of 2 - PCV) 1983 HIV for age 15-65 1992 Hepatitis C screening for ag e 18-79 1995 COVID-19 vaccine series (2022- season) 2023 05/10/2021, 10/12/2020, 09/20/2020 Influenza for age 9-49 12/27/2023 , 02/14/2022, 03/05/2021, Additional history exists Depression screening for age 12+ 03/23/2024 03/23/2023, 03/23/2023, 02/01/2018, Additional history exists BMI (ht and wt on same day) for age 18+ 11/29/2024 11/30/2023, 03/23/2023, 02/24/2023, Additional history exists Fecal testing sDNA-FIT ([place] guard) for age 45-75 07/20/2026 07/21/2023 Tetanus booster 01/27/2028 01/26/2018, 10/25/2009 Lipids for age 45-75 03/23/2028 03/23/2023, 08/21/2021, 02/05/2018, Additional history exists Tdap Completed 01/26/2018 Procedures Procedure Name Priority Date/Time Associated Diagnosis Comments SDNA-FIT EXTERNAL (COLOGUARD) Routine 07/21/2023 3:31 PM CDT Screening for colon cancer LIPID PANEL W REFLEX MEASURED LDL Routine 03/23/2023 9:50 AM 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 Screening cholesterol level from Last 3 Months or Most Recently Relevant to Health Maintenance Results * SDNA-FIT EXTERNAL (COLOGUARD) (07/21/2023 3:31 PM CDT) NONINV COLON CA DNA+OCC BLD SCRN STL-IMP Negative Negative 07/25/2023 4:41 PM CDT [facility] (CLIA #:[id number]) Comment: NEGATIVE TEST RESULT. A negative Cologuard result indicates a low likelihood that a colorectal cancer (CRC) or advanced adenoma (adenomatous polyps with more advanced pre-malignant features) ??is present. The chance that a person with a negative Cologuard test has a colorectal cancer is less than 1 in 1500 (negative predictive value >99.9%) or has an ??advanced adenoma is less than ??5.3% (negative predictive value 94.7%). These data are based on a prospective cross-sectional study of 10,000 individuals at average risk for colorectal cancer who were screened with both Cologuard and colonoscopy. (Candice Trevizo al, N Engl J Med 2014;370(14):1286- 1297) The normal value (reference range) for this assay is negative. COLOGUARD RE-SCREENING RECOMMENDATION: Periodic colorectal cancer screening is an important part of preventive healthcare for asymptomatic individuals at average risk for colorectal cancer. ??Following a negative Cologuard result, the [place] Cancer Society and U.S. Multi-Society Task Force screening guidelines recommend a Cologuard re-screening interval of 3 years. References: [place] Cancer Society Guideline for Colorectal Cancer Screening: https://www.cancer.org/cancer/mkwps-nmvizy-bomwbv/rsiutdnfw-vqsrhkkfo-whwwrre/ac s-rec ommendations.html.; Tim DK, Vero CR, Marilee CarrenoK, Colorectal Cancer Screening: Recommendations for Physicians and Patients from the U.S. Multi-Society Task Force on Colorectal Cancer Screening , Am J Gastroenterology 2017; 112:2821-5337. TEST DESCRIPTION: Composite algorithmic analysis of stool DNA-biomarkers with hemoglobin immunoassay. ?? Quantitative values of individual biomarkers are not reportable and are not associated with individual biomarker result reference ranges. Cologuard is intended for colorectal cancer screening of adults of either sex, 45 years or older, who are at average-risk for colorectal cancer (CRC). Cologuard has been approved for use by the U.S. FDA. The performance of Cologuard was established in a cross sectional study of average-risk adults aged 50-84. Cologuard performance in patients ages 45 to 49 years was estimated by sub-group analysis of near-age groups. Colonoscopies performed for a positive result may find as the most clinically significant lesion: colorectal cancer [4.0%], advanced adenoma (including sessile serrated polyps greater than or equal to 1cm diameter) [20%] or non- advanced adenoma [31%]; or no colorectal neoplasia [45%]. These estimates are derived from a prospective cross-sectional screening study of 10,000 individuals at average risk for colorectal cancer who were screened with both Cologuard and colonoscopy. (Candice Trevizo al, N Engl J Med 2014;370(14):3932-2245.) Cologuard may produce a false negative or false positive result (no colorectal cancer or precancerous polyp present at colonoscopy follow up). A negative Cologuard test result does not guarantee the absence of CRC or advanced adenoma (pre-cancer). The current Cologuard screening interval is every 3 years. ([place] Cancer Society and U.S. Multi-Society Task Force). Cologuard performance data in a 10,000 patient pivotal study using colonoscopy as the reference method can be accessed at the following location: www.Vouch/results. Additional description of the Cologuard test process, warnings and precautions can be found at www.[employer] [place]. Stool specimen (specimen) ([facility]um) 07/21/2023 3:31 PM CDT 07/22/2023 1:47 PM CDT Viraj Machuca MD URINE [facility] (CLIA #:[id number]) [address] [place] [place] [address], * (ABNORMAL) LIPID PANEL W REFLEX MEASURED LDL (03/23/2023 9:50 AM 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) CHOLESTEROL,TOTAL 199 100 - 199 mg/dL 03/23/2023 5:53 PM 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 [facility] Comment: Cholesterol, Total Reference Ranges Desirable <200 mg/dL Borderline 200-239 mg/dL High >=240 mg/dL TRIGLYCERIDES 357(H) <150 mg/dL 03/23/2023 5:53 PM 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 [facility] HDL CHOLESTEROL 32(L) >40 mg/dL 5:53 PM 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 [facility] NON-HDL CHOLESTEROL 167(H) <145 mg/dl 03/23/2023 5:53 PM 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 [facility] CHOL/HDL RATIO 6.22(H) <4.50 03/23/2023 5:53 PM 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 [facility] LDL CHOLESTEROL 96 <=130 mg/dL 03/23/2023 5:53 PM 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 [facility] VLDL CHOLESTEROL 71(H) <=30 mg/dL 03/23/2023 5:53 PM 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 [facility] PROVIDER ORDERED STATUS RANDOM 03/23/2023 5:53 PM 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 [facility] Blood BLOOD SPECIMEN / Unknown Venipuncture / Unknown 03/23/2023 9:50 AM 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 03/23/2023 9:50 AM 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 Lo SAL[facility]AS [facility] [address] from Last 3 Months or Most Recently Relevant to Health Maintenance Advance Directives * Full Code (Latest Code Status on File) Date Activated Date Inactivated Comments 12/24/2015 9:08 PM 12/25/2015 5:11 PM * Full Code Date Activated Date Inactivated Comments 12/24/2015 7:31 PM 12/24/2015 9:08 PM Care Teams Foundry Metallurgist Relationship Specialty Start Date End Date Lo Parker PA [address] [place], [place] [phone] PCP - General Physician Music Assistant 02/05/18
[2024-01-03 12:52] LABS: Appearance Urine Clear (Clear); Bilirubin Urine Negative (Negative); Blood Urine 3+ (Negative); Color Urine Dark yellow (Yellow); Glucose Urine Trace (Negative); Ketones Urine Negative (Negative); Leukocyte Esterase Urine Negative (Negative); Nitrite Urine Negative (Negative); Protein Urine Negative (Negative); Urobilinogen Urine 0.2 (0.2-1.0); pH Urine 5.5 (5.0-8.5)
[2024-01-03 12:55] LABS: RBC Urine 25-50 (0-2); WBC Urine 0-2 (0-5)
[2024-01-03 12:56] LABS: Bacteria Urine Few
[2024-01-03] MEDS: OXYCODONE 5 MG TABLET PO (13:52)
[2024-01-03 14:19] VITALS: BP 141/84; PULSE 85; RESP 16
== END 2024-01-03 14:22 | disposition home or self-care (01) ==
PROVIDERS: Emergency Provider Student in an Organized Health Care Education/Training Program; PCP Physician Assistant Medical
DX: N20.0 Calculus of kidney (principal)
CPT/HCPCS: 36415; 74177; 80053; 81001; 82565; 83735; 85025; 87086; 96374; 96375; 96376; 99283; 99284; 99285; A9270; J1170; J1885; J7120; Q9967

== ENCOUNTER 2024-08-31 10:06 | Emergency (ER) | payer OTHER, SELFPAY ==
--- OUTSIDE RECORDS SUMMARY | 2024-08-31 10:08 | XMS_ITS | Clinical Summary ---
Author Organization [facility] Address [address] [place] [address] Care Team Providers Care Automotive Quality Engineer Name Role Phone Lo Parker Primary Care [...] Comment Field 12/24/2015 Rash and blisters Medications tamsulosin (FLOMAX) 0.4 mg capsuleIndication s:History of kidney stones Take 1 Capsule (0.4 mg) by mouth once daily after a meal. 15 Capsule 2 2 Active cyclobenzaprine (FLEXERIL) 10 mg tabletIndications :Migraine syndrome TAKE ONE TABLET BY MOUTH DAILY NEEDED 60 Tablet 3 Active albuterol HFA (PRO-AIR; VENTOLIN; PROVENTIL) 90 mcg/actuation inhalerIndication s:Acute bronchitis, unspecified organism Inhale 1-2 Puffs by mouth every 4 hours if needed for Shortness Of Breath or Wheezing. 8.5 g 4 Active betamethasone dipropionate 0.05 % creamIndications: Dry skin Apply topically to affected area(s) once daily. 45 g 4 Active lisinopriL 20 mg tabletIndications :HTN (hypertension) Take 1 Tablet (20 mg) by mouth once daily. 90 Tablet 3 08/31/2024 10:01 AM CDT 4 Active propranoloL 40 mg tabletIndications :Hypertension, unspecified type Take 2 tablets (80 mg) by mouth in the morning and 1 tablet (40 mg) in the evening. 270 Tablet 3 07/26/2024 2:55 PM CDT 4 Active Metaxalone (SKELAXIN) 800 mg tabletIndications :Acute right-sided low back pain with right-sided sciatica Take 1 Tablet (800 mg) by mouth three times daily. 30 Tablet 1 02/24/2024 3:03 PM CDT 4 Active fluticasone propion-salmetero L (Advair Diskus) 250-50 mcg/Dose diskus inhalerIndication s:COPD with chronic bronchitis (HC) Inhale 1 Puff by mouth two times daily. 180 Each 3 02/24/2024 3:03 PM CDT 4 Active fluocinonide 0.05 % creamIndications: Dry skin Apply topically to affected area(s) two times daily. 60 g 1 4 Active rosuvastatin (CRESTOR) 10 mg tabletIndications :Hypercholesterol emia Take 1 Tablet (10 mg) by mouth at bedtime. 90 Tablet 3 4 Active Active Problems Problem Noted Date Diagnosed Date Abdominal hernia without obstruction and without gangrene 05/10/2024 Abdominal pain 05/10/2024 Kidney stone 02/02/2017 Chest pain 12/25/2015 Near syncope 12/25/2015 Resolved Problems Problem Noted Date Diagnosed Date Resolved Date History of kidney stones 08/13/2021 Encounters Date Type Department Care Team Description 08/31/2024 Travel from Last 3 Months Immunizations Immunization Administration Dates Next Due COVID-19 VACCINE SPIKEVAX (M ODERNA 50MCG/0.5ML) 12YO+ PFS 02/23/2024 COVID-19 vaccine ([employer] 30mcg/0.3mL) PF, MDV 10/12/2020,09/20/2020 Hepatitis B (Adult) 12/14/2015,08/02/2015,2015 Influenza, IIV4 02/09/2024, 3,02/14/2022,2020,01/03/2020,02/12/2019,01/26/2018 Influenza, IIV4 (=>6mos) MDV 02/02/2017,01/10/20 16 Pneumococcal Conj 20-valent (Prevnar 20) 02/23/2024 Td, Preservative Free (age > = 7 [...] 0 03/23/2023 Social Connections Answer Date Recorded Do you often feel lonely or isolated from those around you? 0 03/23/2023 Financial Resource Strain Answer Date R ecorded Difficulty of Paying Living Expenses 3 03/23/2023 Difficulty of Paying Living Expenses Not on file 03/23/2023 Food Insecurity Answer Date Recorded Do you worry your food will run out before you are able to buy more? 1 03/23/2023 Transportation Needs Answer Date Record ed Does lack of transportation keep you from medica l appointments? 1 03/23/2023 Does lack of transportation keep you from work, meetings or getting things that you need? 1 03/23/2023 Housing Stability Answer Date Recorded What is your housing situation today? 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 Sexual Orientation Not on file Obstetrics History Last Filed Vital Signs Vital Sign Reading Time Taken Comments Blood Pressure 122/66 05/10/2024 10:51 AM OIL PRODUCER Pulse 70 05/10/2024 10:51 AM OIL PRODUCER Temperature 36.9 C (98.4 F) 08/19/2023 8:48 AM CDT Respiratory Rate 18 12/25/2015 10:45 AM CDT Oxygen Saturation 97% 05/10/2024 10:51 AM OIL PRODUCER Inhaled Oxygen Concentration - - Weight 114 kg (251 lb 6.4 oz) 05/10/2024 10:51 A M OIL PRODUCER Height 175.3 cm (5' 9) 05/10/2024 10:51 AM OIL PRODUCER Body Mass Index 37.13 05/10/2024 10:51 AM OIL PRODUCER Plan of Treatment Health Maintenance Due Date Last Done Comments HIV for age 15-65 1992 Hepatitis C screening for ag e 18-79 1995 Depression screening for age 12+ 03/23/2024 03/23/2023, 03/23/2023, 02/01/2018, Additional history exists BMI (ht and wt on same day) for age 18+ 05/10/2025 05/10/2024, 02/23/2024, 11/30/2023, Additional history exists Fecal testing sDNA-FIT ([place] guard) for age 45-75 07/20/2026 07/21/2023 Tetanus booster 01/27/2028 01/26/2018, 10/25/2009 Lipids for age 45-75 02/22/2029 02/23/2024, 03/23/2023, 08/21/2021, Additional history exists Tdap Completed 01/26/2018 Influenza Vaccine Completed 02/09/2024, , 02/14/2022, Additional history exists COVID-19 vaccine series Completed 02/23/20, 05/10/2021, 10/12/2020, Additional history exists Pneumococcal series for age 6-49 Completed 02/23/20 Procedures Procedure Name Priority Date/Time Associated Diagnosis Comments LIPID PANEL W REFLEX MEASURED LDL Routine 02/23/2024 11:14 AM CDT Screening cholesterol level SDNA-FIT EXTERNAL (COLOGUARD) Routine 07/21/2023 3:31 PM CDT Screening for colon cancer from Last 3 Months or Most Recently Relevant to Health Maintenance Results * (ABNORMAL) LIPID PANEL W REFLEX MEASURED LDL (02/23/2024 11:14 AM CDT) CHOLESTEROL, TOTAL 211(H) <200 mg/dL [facility] HDL CHOLESTEROL 30(L) > OR = 40 mg/dL [facility] TRIGLYCERIDES 442(H) <150 mg/dL [facility] Comment: If a non-fasting specimen was collected, consider repeat triglyceride testing on a fasting specimen if clinically indicated. Deya et al. J. of Clin. Lipidol. 2015;9:129-169. LDL-CHOLESTEROL [facility] Comment: LDL cholesterol not calculated. Triglyceride levels greater than 400 mg/dL invalidate calculated LDL results. Reference range: <100 Desirable range <100 mg/dL for primary prevention; <70 mg/dL for patients with CHD or diabetic patients with > or = 2 CHD risk factors. LDL-C is now calculated using the Viraj-Smith calculation, which is a validated novel method providing better accuracy than the Friedewald equation in the estimation of LDL-C. Viraj SS et al. MARIA ISABEL. 2013;310(19): 4388-9714 (http://education.[employer]/faq/MAK875) CHOL/HDLC RATIO 7.0(H) <5.0 (calc) [facility] NON HDL CHOLESTEROL 181(H) <130 mg/dL (calc) [facility] Comment: For patients with diabetes plus 1 major ASCVD risk factor, treating to a non-HDL-C goal of <100 mg/dL (LDL-C of <70 mg/dL) is considered a therapeutic option. Blood BLOOD SPECIMEN / Unknown 02/23/2024 11:14 AM CDT 02/23/2024 11:14 AM CDT Lo SALINAS CHEMISTRY Final R esult N(i)² [facility] [address] [place] [address], [facility] [address] [place] [address] * SDNA-FIT EXTERNAL (COLOGUARD) (07/21/2023 3:31 PM CDT) NONINV COLON CA DNA+OCC BLD SCRN STL-IMP Negative Negative 07/25/2023 4:41 PM CDT [facility] (CLIA #:[id number]) Comment: NEGATIVE TEST RESULT. A negative Cologuard result indicates a low likelihood that a colorectal cancer (CRC) or advanced adenoma (adenomatous polyps with more advanced pre-malignant features) is present. The chance that a person with a negative Cologuard test has a colorectal cancer is less than 1 in 1500 (negative predictive value >99.9%) or has an advanced adenoma is less than 5.3% (negative predictive value 94.7%). These data are based on a prospective cross-sectional study of 10,000 individuals at average risk for colorectal cancer who were screened with both Cologuard and colonoscopy. (Candice Valentino. et al, N Engl J Med 2014;370(14):5102-7994) The normal value (reference range) for this assay is negative. COLOGUARD RE-SCREENING RECOMMENDATION: Periodic colorectal cancer screening is an important part of preventive healthcare for asymptomatic individuals at average risk for colorectal cancer. Following a negative Cologuard result, the [place] Cancer Society and U.S. Multi-Society Task Force screening guidelines recommend a Cologuard re-screening interval of 3 years. References: [place] [employer] Guideline for Colorectal Cancer Screening: https://www.cancer.org/cancer/bmjwe-iglhge-mkxozg/siytnzbjn-cbemhlwzm-zvjnblh/ac s-rec ommendations.html.; Tim MCNEAL, Vero BARKER, Marilee REYES, Colorectal Cancer Screening: Recommendations for Physicians and Patients from the U.S. Multi-Society Task Force on Colorectal Cancer Screening , Am J Gastroenterology 2017; 112:3856-1325. TEST DESCRIPTION: Composite algorithmic analysis of stool DNA-biomarkers with hemoglobin immunoassay. Quantitative values of individual biomarkers are not [...] (Candice Trevizo al, N Engl J Med 2014;370(14):3626-3059.) Cologuard may produce a false negative or false positive result (no colorectal cancer or precancerous polyp present at colonoscopy follow up). A negative Cologuard test result does not guarantee the absence of CRC or advanced adenoma (pre-cancer). The current Cologuard screening interval is every 3 years. ([place] Cancer Society and U.S. Multi-Society Task Force). Cologuard performance data in a 10,000 patient pivotal study using colonoscopy as the reference method can be accessed at the following location: www.[employer]/results. Additional description of the Cologuard test process, warnings and precautions can be found at www.Pixafyrd.com. Stool specimen (specimen) ([facility]) 07/21/2023 3:31 PM CDT 07/22/2023 1:47 PM CDT us Viraj Machuca MD URINE Final Res ult [facility] (CLIA #:[id number]) [place] [address], from Last 3 Months or Most Recently Relevant to Health Maintenance Insurance [employer] ELEV[employer] Advance Directives * Full Code (Latest Code Status on File) Date Activated Date Inactivated Comments 12/24/2015 9:08 PM 12/25/2015 5:11 PM * Full Code Date Activated Date Inactivated Comments 12/24/2015 7:31 PM 12/24/2015 9:08 PM Care Teams Automotive Quality Engineer Relationship Specialty Start Date End Date Lo Parker [place] [address] [address] [place] [address] PCP - General Physician Carpenter Assistant Installer 02/05/18
[2024-08-31 10:10] VITALS: BP 214/123; PULSE 86; RESP 22; O2SAT 98; BMI 37.4
[2024-08-31 10:13] VITALS: O2SAT 96
--- NOTE | 2024-08-31 10:13 | CRLHL7_ITS ---
For Patients: As a result of the Century Cures Act, medical imaging exams and procedure reports are released immediately into your electronic medical record. You may view this report before your referring provider. If you have questions, please contact your health care provider. Indication: LEFT FLANK PAIN Technique: Noncontrast CT of the abdomen and pelvis was obtained. Please note that all CT scans at this facility use dose modulation, iterative reconstruction, and/or weight-based dosing when appropriate to reduce radiation dose to as low as reasonably achievable. Comparison: 01/03/2024. Findings: Lower thorax: Normal. Liver and biliary tree: Moderate hepatic steatosis. Gallbladder: Normal. Spleen: Normal noncontrast appearance. Pancreas: Normal noncontrast appearance. Adrenal glands: Normal noncontrast appearance. Kidneys and ureters: Mild left hydronephrosis with 6 millimeter obstructing calculus in the upper left ureter (2/75). Additional nonobstructing bilateral renal calculi measuring up to 2 millimeter on the right (2/52) and 4 millimeter on the left (2/57). Gastrointestinal tract: Normal appendix. No evidence of bowel obstruction. Peritoneal cavity: Normal. Bladder: Decompressed. Pelvic organs: Normal. Vasculature: Wdfe-hw-spjgnxpv calcification. Lymph nodes: Normal. Abdominal wall: Rectus diastasis. Musculoskeletal: Mild degenerative changes of the bilateral hips. Mild degenerative changes of the visualized spine. Impression: 1. Mild left hydronephrosis with 6 millimeter obstructing calculus in the upper left ureter. Additional nonobstructing bilateral renal calculi measuring up to 2 millimeter on the right and 4 millimeter on the left. 2. Moderate hepatic steatosis. Please note that all CT scans at this facility use dose modulation, iterative reconstruction, and/or weight-based dosing when appropriate to reduce radiation dose to as low as reasonably achievable. Dictated by Steven Thakkar MD @ 08/31/2024 11:29:56 AM (Electronically Signed)
--- NOTE | 2024-08-31 10:18 | ED_ITS ---
HPI - General Adult General Chief complaint: Urogenital Problems, Male Stated complaint: Kidney stones- having pain Time Seen by Provider: 08/31/24 10:07 History of Present Illness HPI narrative: Patient is a 49-year-old white male who presents with some sudden onset 2 hours ago of left flank pain. He has had kidney stones in the past. Had a nonobstructive stone in the left kidney on a prior CT scan. He has worked with Urology in the past. He had a bladder stone 1 point. He reports this is similar to his prior kidney stones. He has had no position of comfort. He has been very uncomfortable his blood pressure is elevated on presentation is a little bit diaphoretic. No chest pain, no breathing problem, no fever chills. No gross hematuria. Related Data Home Medications ?Medication ?Instructions ?Recorded ?Confirmed propranolol 40 mg tablet 40 mg PO BID 02/03/22 08/31/24 cyclobenzaprine 10 mg tablet 10 mg PO QPM 01/03/24 01/03/24 fluticasone 250 mcg-salmeterol 50 1 ea inhalation BID 01/03/24 01/03/24 mcg/dose blistr powdr for inhalation lisinopril 20 mg tablet 20 mg PO DAILY 01/03/24 08/31/24 tamsulosin 0.4 mg capsule (Flomax) 0.4 mg PO QDAY 01/03/24 01/03/24 Previous Rx's ?Medication ?Instructions ?Recorded albuterol sulfate 90 mcg/actuation 2 puff inhalation 6XD PRN 02/03/22 aerosol inhaler shortness of breath or wheezing #8.5 grams oxycodone 5 mg tablet 5 mg PO Q6H PRN pain #6 tabs 01/03/24 hydromorphone 4 mg tablet 4 mg PO Q6H PRN pain #20 tabs 08/31/24 (Dilaudid) ketorolac 10 mg tablet 10 mg PO Q8H PRN pain 3 days #10 08/31/24 tabs Allergies Allergy/AdvReac Type Severity Reaction Status Date / Time diphtheria toxoid,adsorbed Allergy Verified 01/03/24 11:37 sumatriptan (From Imitrex) Allergy Verified 01/03/24 11:37 Review of Systems Status of ROS: Reports: 6 or more systems reviewed and unremarkable except as noted in History and below PFSH PFSH Medical History HTN (hypertension) ?I10 - Essential (primary) hypertension (ICD-10) Surgical History No significant past surgical history Social History Smoking Status: Former smoker What tobacco products do you use: cigarettes Smoking quit date/years: <= 15 years ago Do you use any of these nicotine containing products: None Second hand tobacco smoke exposure: No How often do you have a drink containing alcohol: never How often do you have six or more drinks on one occasion: Never AUDIT-C Alcohol total score: 0 Non-prescribed substance use: denies use service: No Exam Narrative: Exam Narrative: Objective in general patient is in moderate distress and discomfort he has got no palpable abdominal pain he does state that his left lower abdomen is a little bit tender however but it does appear to have rebound he has got no significant flank tenderness pulses regular Neurologic is grossly nonfocal He is slightly diaphoretic from the discomfort he is riding a little bit. Const: Vital Signs, click to edit/add: Vital Signs - 24 hr 08/31/24 10:10 08/31/24 10:13 Pulse Rate [Pulse Oximeter] 86 Respiratory Rate 22 Blood Pressure [Ri ght Upper Arm] 214/123 H Pulse Oximetry 98 96 Oxygen Delivery Me thod Room Air Course Vital Signs Vital signs: Initial Vital Signs Pulse Rate 86 08/31/24 10:10 Respiratory Rate 22 08/31/24 10:10 Blood Pressure 214/123 H 08/31/24 10:10 Blood Pressure Mean 153 H 08/31/24 10:10 Pulse Oximetry 98 08/31/24 10:10 Oxygen Delivery Method Room Air 08/31/24 10:10 Vital Signs Pulse Rate 86 08/31/24 10:10 Respiratory Rate 22 08/31/24 10:10 Blood Pressure 214/123 H 08/31/24 10:10 Pulse Oximetry 98 08/31/24 10:10 Oxygen Delivery Method Room Air 08/31/24 10:10 Pulse Rate 86 08/31/24 10:10 Respiratory Rate 22 08/31/24 10:10 Blood Pressure 214/123 H 08/31/24 10:10 Pulse Oximetry 96 08/31/24 10:13 Oxygen Delivery Method Room Air 08/31/24 10:10 Medications Administered Medications: Discontinued Medications Generic Name Dose Route Start Last Admin Trade Name Freq PRN Reason Stop Dose Admin Hydromorphone HCl 0.5 mg 08/31/24 10:13 08/31/24 10:20 Hydromorphone 0.5 Mg/0.5 Ml Inj IVP 08/31/24 10:14 0.5 mg ONCE ONE Administration Hydromorphone HCl 1 mg 08/31/24 10:36 08/31/24 10:58 Hydromorphone 0.5 Mg/0.5 Ml Inj IVP 08/31/24 10:37 1 mg ONCE ONE Administration Hydromorphone HCl 0.5 mg 08/31/24 11:30 08/31/24 12:02 Hydromorphone 0.5 Mg/0.5 Ml Inj IVP 08/31/24 11:31 0.5 mg ONCE ONE Administration Sodium Chloride 1,000 mls @ 6,000 mls/hr 08/31/24 10:15 08/31/24 11:29 0.9 % Sodium Chloride 1000 Ml IV 08/31/24 10:24 Infused .Q10M PATRICIA Infusion Sodium Chloride 1,000 mls @ 6,000 mls/hr 08/31/24 12:00 08/31/24 12:02 0.9 % Sodium Chloride 1000 Ml IV 08/31/24 12:09 6,000 mls/hr .Q10M PATRICIA Administration Ketorolac Tromethamine 30 mg 08/31/24 10:13 08/31/24 10:20 Ketorolac 30 Mg/Ml Inj IVP 08/31/24 10:14 30 mg ONCE ONE Administration Ondansetron HCl 4 mg 08/31/24 10:17 08/31/24 10:27 Ondansetron 2 Mg/Ml Inj IVP 08/31/24 10:18 4 mg ONCE ONE Administration Ondansetron HCl 4 mg 08/31/24 10:54 08/31/24 11:04 Ondansetron 2 Mg/Ml Inj IVP 08/31/24 10:55 4 mg ONCE ONE Administration Medical Decision Making MDM Narrative Medical decision making narrative: [age] year white male with history of kidney stones with onset of left flank pain radiating to his left groin consistent with kidney stone type pain. At this point will get a CT scan without contrast of his abdomen pelvis, lab studies, urinalysis. Will get him IV fluid 1 L bolus, Zofran, Toradol, Dilaudid. Disposition pending findings above. He was comfortable assessment and plan. He reports only allergy to codeine and tetanus vaccine and Imitrex. Addendum 11:45 a.m.: The patient has nonobstructing kidney stone bilaterally but a 6 mm proximal left ureteral stone with mild hydronephrosis. They have already scheduled a urology consult within the next week. He has better in terms of his pain but it is recurring a little bit will give additional pain medication and likely if we can get his pain under control he can go home on oral pain medicines push fluids will give another L saline at this time. And he is going to need urology follow-up as they have scheduled. Interestingly he did pass a 7 mm stone without intervention on his own in the past. Addendum 12:41 p.m. the patient's pain seemed to be under control at this time he hopefully will pass this kidney stone. He will get Dilaudid and Toradol for home. Push fluids, light activity. They have made urology follow-up appointment. Lab Data Labs: Lab Results 08/31/24 Range/Units 10:24 WBC 6.54 (4.50-11.00) K/uL RBC 4.93 (4.30-5.90) m/uL Hgb 15.0 (13.5-17.5) gm/dL Hct 44.4 (37.0-53.0) % MCV 90 (80-100) fL MCH 30 (26-34) pg MCHC 34 (32-36) gm/dL RDW Coeff of [place] 12.0 (11.5-15.5) % Plt Count 306 (140-440) K/uL Neut % (Auto) 59.6 (42.0-72.0) % Lymph % (Auto) 25.8 (20-44) % [place] % (Auto) 10.6 (0.0-11.0) % Eos % (Auto) 2.8 (0.0-7.0) % Baso % (Auto) 0.9 (0.0-3.0) % Neut # (Auto) 3.90 (1.7-7.0) K/uL Lymph # (Auto) 1.69 (0.90-2.90) K/uL [place] # (Auto) 0.70 (0.00-0.90) K/UL Eos # (Auto) 0.18 (0.00-0.50) K/uL Baso # (Auto) 0.06 (0.00-0.30) K/uL Abs Immat Gran (auto) 0.02 (0.00-0.30) K/uL Imm/Tot Granulo (auto) 0.3 % Sodium 137 (135-149) mmol/L Potassium 4.5 (3.6-5.1) mmol/L Chloride 104 (96-114) mmol/L Carbon Dioxide 23 (20-32) mmol/L Anion Gap 10 (7-15) mEq/L BUN 17 (5-24) mg/dL Creatinine 1.3 (0.5-1.5) mg/dL Estimated Creat Clear 70.25 Estimated GFR 68 ml/min Glucose 175 H (60-115) mg/dL Calcium 9.1 (8.4-10.6) mg/dL Discharge Plan Discharge Clinical Impression: Acute left flank pain, Urolithiasis Patient Disposition: Home w/ Parent or Adult Condition: Stable Additional Instructions: Toradol and Dilaudid as needed, follow-up with Urology as he have scheduled, return to the ED if intractable pain or fever chills. Activity Level: Light activity Discharge Diet: Regular Prescriptions: New hydromorphone [Dilaudid] 4 mg tablet 4 mg PO Q6H PRN (Reason: pain) Qty: 20 0RF ketorolac 10 mg tablet 10 mg PO Q8H PRN (Reason: pain) 3 Days Qty: 10 0RF No Action lisinopril 20 mg tablet 20 mg PO DAILY fluticasone propion-salmeterol 250-50 mcg/dose blister with device 1 ea inhalation BID cyclobenzaprine 10 mg tablet 10 mg PO QPM tamsulosin [Flomax] 0.4 mg capsule 0.4 mg PO QDAY propranolol 40 mg tablet 40 mg PO BID Patient Comments: TAKE ONE TABLET BY MOUTH TWICE DAILY albuterol sulfate 90 mcg/actuation HFA aerosol inhaler 2 puff inhalation 6XD PRN (Reason: shortness of breath or wheezing) Qty: 8.5 0RF oxycodone 5 mg tablet 5 mg PO Q6H PRN (Reason: pain) Qty: 6 0RF Follow Up/Referrals: Lo Parker PA-C [Primary Care Provider] - Stand Alone Forms: [employer] Info Instructions
[2024-08-31] MEDS: KETOROLAC 30 MG/ML inj IVP (10:20)
[2024-08-31] MEDS: HYDROmorphone 0.5 mg/0.5 ml inj IVP ×2 (10:20→12:02)
[2024-08-31] MEDS: 0.9 % SODIUM CHLORIDE 1000 ml 1,000 ML 6000 ML IV ×2 (10:21→12:02)
[2024-08-31] MEDS: ONDANSETRON 2 MG/ML inj 4 MG IVP ×2 (10:27→11:04)
[2024-08-31 10:36] LABS: Basophils Absolute Auto 0.06 K/uL (0.00-0.30); Basophils Percent Auto 0.9 % (0.0-3.0); Eosinophils Absolute Auto 0.18 K/uL (0.00-0.50); Eosinophils Percent Auto 2.8 % (0.0-7.0); Hematocrit 44.4 % (37.0-53.0); Immature Granulocytes Abs Auto 0.02 K/uL (0.00-0.30); Immature Granulocytes Pct Auto 0.3 %; Lymphocytes Absolute Auto 1.69 K/uL (0.90-2.90); Lymphocytes Percent Auto 25.8 % (20-44); Mean Corpuscular HGB Conc 34 gm/dL (32-36); Mean Corpuscular Hemoglobin 30 pg (26-34); Mean Corpuscular Volume 90 fL (80-100); Monocytes Percent Auto 10.6 % (0.0-11.0); Neutrophils Percent Auto 59.6 % (42.0-72.0); Platelet Count* 306 K/uL (140-440); Red Blood Count 4.93 m/uL (4.30-5.90); Slide Review Reflex No; White Blood Count* 6.54 K/uL (4.50-11.00)
[2024-08-31 10:50] LABS: Chloride* 104 mmol/L (96-114); Sodium* 137 mmol/L (135-149)
[2024-08-31 10:51] LABS: Potassium* 4.5 mmol/L (3.6-5.1)
[2024-08-31 10:53] LABS: Blood Urea Nitrogen* 17 mg/dL (5-24); Creatinine* 1.3 mg/dL (0.5-1.5); Est. Creatinine Clearance* 70.25; Estimated Glomerular Filt Rate 68 ml/min
[2024-08-31 10:54] LABS: Anion Gap 10 mEq/L (7-15); Calcium* 9.1 mg/dL (8.4-10.6); Carbon Dioxide* 23 mmol/L (20-32); Glucose* 175 mg/dL (60-115)
[2024-08-31] MEDS: HYDROmorphone 0.5 mg/0.5 ml inj 1 MG IVP (10:58)
--- OUTSIDE RECORDS SUMMARY | 2024-08-31 15:18 | XMS_ITS | Clinical Summary ---
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 States I have a kidney stone) 08/31/2024 Travel from Last 3 Months Immunizations Immunization Administration Dates Next Due COVID-19 VACCINE SPIKEVAX (M ODERNA 50MCG/0.5ML) 12YO+ PFS 02/23/2024 COVID-19 vaccine (Pfizer-Bio NTech 30mcg/0.3mL) PF, MDV 10/12/2020,09/20/2020 Hepatitis B [...] or isolated from those around you? 0 08/31/2024 Financial Resource Strain Answer Date R ecorded Difficulty of Paying Living Expenses 3 08/31/2024 Difficulty of Paying Living Expenses Not on file 08/31/2024 Food Insecurity Answer Date Recorded Do you worry your food will run out before you are able to buy more? 1 08/31/2024 Transportation Needs Answer Date Record ed Does lack of transportation keep you from medica l appointments? 1 08/31/2024 Does lack of transportation keep you from work, meetings or getting things that you need? 1 08/31/2024 Housing Stability Answer Date Recorded What is your housing situation today? 1 08/31/2024 Utilities Answer Date Recorded Do you have trouble paying f or utilities (for example, heat, electricity, water, phone)? 1 08/31/2024 Sex and Gender Information Value Date Recorded Sex Assigned at Not on file Legal Sex Male 10:24 PM CDT Gender Identity Male 03/31/2020 9:44 PM [employer] Sexual Orientation Not on file Obstetrics History Last Filed Vital Signs Vital Sign Reading Time Taken Comments Blood Pressure 122/66 05/10/2024 10:51 AM [employer] Pulse 70 05/10/2024 10:51 AM [employer] Temperature 36.9 C (98.4 F) 08/19/2023 8:48 AM CDT Respiratory Rate 18 12/25/2015 10:45 AM CDT Oxygen Saturation 97% 05/10/2024 10:51 AM [employer] Inhaled Oxygen Concentration - - Weight 114 kg (251 lb 6.4 oz) 05/10/2024 10:51 A M [employer] Height 175.3 cm (5' 9) 05/10/2024 10:51 AM [employer] Body Mass Index 37.13 05/10/2024 10:51 AM [employer] Plan of Treatment Health Maintenance Due Date Last Done Comments HIV for age 15-65 1992 Hepatitis C screening for ag e 18-79 1995 Depression screening for age 12+ 03/23/2024 03/23/2023, 03/23/2023, 02/01/2018, Additional history exists BMI (ht and wt on same day) for age 18+ 05/10/2025 05/10/2024, 02/23/2024, 11/30/2023, Additional history exists Fecal testing sDNA-FIT (Marydel guard) for age 45-75 07/20/2026 07/21/2023 Tetanus booster 01/27/2028 01/26/2018, 10/25/2009 Lipids for age 45-75 02/22/2029 02/23/2024, 03/23/2023, 08/21/2021, Additional history exists Tdap Completed 01/26/2018 Influenza Vaccine Completed 02/09/2024, , 02/14/2022, Additional history exists COVID-19 vaccine series Completed 02/23/20, 05/10/2021, 10/12/2020, Additional history exists Pneumococcal series for age 6-49 Completed 02/23/20 24 Procedures Procedure Name Priority Date/Time Associated Diagnosis Comments LIPID PANEL W REFLEX MEASURED LDL Routine 02/23/2024 11:14 AM CDT Screening cholesterol level SDNA-FIT EXTERNAL (COLOGUARD) Routine 07/21/2023 3:31 PM CDT Screening for colon cancer from Last 3 Months or Most Recently Relevant to Health Maintenance Results * (ABNORMAL) LIPID PANEL W REFLEX MEASURED LDL (02/23/2024 11:14 AM CDT) CHOLESTEROL, TOTAL 211(H) <200 mg/dL [employer] cherise Yun HDL CHOLESTEROL 30(L) > OR = 40 mg/dL [employer] osybil Yun TRIGLYCERIDES 442(H) <150 mg/dL [facility] cherise Yun Comment: If a non-fasting specimen was collected, consider repeat triglyceride testing on a fasting specimen if clinically indicated. Deya et al. J. of Clin. Lipidol. 2015;9:129-169. LDL-CHOLESTEROL Ques t CHARMS [facility] cherise Yun Comment: LDL cholesterol not calculated. Triglyceride levels greater than 400 mg/dL invalidate calculated LDL results. Reference range: <100 Desirable range <100 mg/dL for primary prevention; <70 mg/dL for patients with CHD or diabetic patients with > or = 2 CHD risk factors. LDL-C is now calculated using the Viraj-Luis calculation, which is a validated novel method providing better accuracy than the Friedewald equation in the estimation of LDL-C. Viraj SS et al. MARIA ISABEL. 2013;310(19): 6527-2459 (http://education.EcoIntense/faq/HLS400) CHOL/HDLC RATIO 7.0(H) <5.0 (calc) [facility] os[facility]bil Yun NON HDL CHOLESTEROL 181(H) <130 mg/dL (calc) [employer] cherise Yun Comment: For patients with diabetes plus 1 major ASCVD risk factor, treating to a non-HDL-C goal of <100 mg/dL (LDL-C of <70 mg/dL) is considered a therapeutic option. Blood BLOOD SPECIMEN / Unknown 02/23/2024 11:14 AM CDT 02/23/2024 11:14 AM CDT Lo SALINAS CHEMISTRY Final R esult [facility] [address] [place] [address], [facility] [address] [place] [address] * SDNA-FIT EXTERNAL (COLOGUARD) (07/21/2023 3:31 PM CDT) NONINV COLON CA DNA+OCC BLD SCRN STL-IMP Negative Negative 07/25/2023 4:41 PM CDT [employer] (CLIA #:[id number]) Comment: NEGATIVE TEST RESULT. A negative Cologuard [...] (Candice Trevizo al, N Engl J Med 2014;370(14):8660-8125) The normal value (reference range) for this assay is negative. COLOGUARD RE-SCREENING RECOMMENDATION: Periodic colorectal cancer screening is an important part of preventive healthcare for asymptomatic individuals at average risk for colorectal cancer. Following a negative Cologuard result, the [place] [employer] Society and U.S. Multi-Society Task Force screening guidelines recommend a Cologuard re-screening interval of 3 years. References: [place] [employer] Guideline for Colorectal Cancer Screening: https://www.cancer.org/cancer/xwleq-iaqwrh-zzqwjx/pswqgkmde-buljpttbv-gilqhby/ac s-rec ommendations.html.; Tim DK, Vero BARKER, Marilee CarrenoK, Colorectal Cancer Screening: Recommendations for Physicians and Patients from the U.S. Multi-Society Task Force on Colorectal Cancer Screening , Am J Gastroenterology 2017; 112:1383-8122. TEST DESCRIPTION: Composite algorithmic analysis of stool [...] screened with both Cologuard and colonoscopy. (Candice Armstrong et al, N Engl J Med 2014;370(14):7310-4214.) Cologuard may produce a false negative or false positive result (no colorectal cancer or precancerous polyp present at colonoscopy follow up). A negative Cologuard test result does not guarantee the absence of CRC or advanced adenoma (pre-cancer). The current Cologuard screening interval is every 3 years. ([place] [employer] Society and U.S. Multi-Society Task Force). Cologuard performance data in a 10,000 patient pivotal study using colonoscopy as the reference method can be accessed at the following location: www.[employer].[place]/results. Additional description of the Cologuard test process, warnings and precautions can be found at www.cologuard.com. Stool specimen (specimen) (Rectum) 07/21/2023 3:31 PM CDT 07/22/2023 1:47 PM CDT Viraj Machuca MD URINE Final Res ult [employer] (CLIA #:[id number]) [address] 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
== END 2024-08-31 12:57 | disposition home or self-care (01) ==
PROVIDERS: Emergency Provider Family Medicine; PCP Physician Assistant Medical
DX: N20.9 Urinary calculus, unspecified (principal)
CPT/HCPCS: 36415; 74176; 80048; 81001; 85025; 87086; 94761; 96374; 96375; 96376; 99284; 99285; J1171; J1885; J2405; J7030